=== PATIENT | female | born 1940 | race Caucasian/White ===

== ENCOUNTER → 2019-07-29 | Outpatient (CLI) | payer MEDICARE, SELFPAY ==
--- NOTE | 2019-07-29 | EMB_PTH ---
PATIENT: AXEL COELLO LOC: U#:[id number] AGE/SX: 79/F ROOM: RE07/29/[address]: Dr. Monse Greene MD : 1940 BED: DIS: 07/29/2019 SPEC #: [id number] RECD: 07/29/19 16:39 STATUS: ELYSIA REYoni #: [id number] MITZI: 07/29/19 00:[address]: Daisy Glover NP DEPT: SURGICAL PATHOLOGY RECD BY: Hanny Bobby ENTERED: 08/01/19 09:16 SP TYPE: ENDOM BX/C OTHR DR: MD Dr. Monse Betancourt MD Tissues: Endometrium, NOS Procedures: Surgery Specimen Level IV HEADER OPERATION: Endometrial biopsy PRE-OP DIAGNOSIS: Abnormal uterine bleeding TISSUE SUBMITTED: Endometrial biopsy MICROSCOPIC DIAGNOSIS Endometrium, biopsy: Endometrial carcinoma, FIGO 3, with focal papillary serous features. AM:tasha 08/02/19 COMMENT Immunohistochemistry ([id number]) supports the above diagnosis. Case has been reviewed in consultation with Dr. Fraga who concurs with the above diagnosis. IDC:CHASE MICROSCOPIC DESCRIPTION Slides are reviewed. GROSS DESCRIPTION Received is one container labeled with the patient's name and not further designated. The specimen consists of multiple irregular fragments of light ball soft tissue that in aggregate measure 1 x 0.2 x 0.1 cm. The specimen is totally submitted in one cassette. / SJ:tasha 08/01/19 TC:0 CPT: 62061 ADDENDUM ADDENDUM ADDENDUM ADDENDUM ADDENDUM ADDENDUM ADDENDUM ADDENDUM ADDENDUM ADDENDUM 03/02/2020 10:18 ADDENDUM 03/02/2020 10:18 ADDENDUM 03/02/2020 10:18 ADDENDUM 03/02/2020 10:18 ADDENDUM 03/02/2020 10:18 This addendum is added to incorporate an outside pathology consultation report. The case was examined at [facility] (#[id number]) and the following diagnosis was rendered. Endometrium, biopsy: High grade endometrial carcinoma, serous type. Please see complete above mentioned consultation report in EMR
--- NOTE | 2019-07-29 | IMM_PTH ---
PATIENT: AXEL COELLO LOC: [facility]#:[id number] AGE/SX: 79/F ROOM: RE07/29/[address]: Dr. Monse Greene MD : 1940 BED: DIS: 07/29/2019 SPEC #: [id number] RECD: 08/02/19 12:35 STATUS: ELYSIA REQ #: [id number] MITZI: 07/29/19 00:[address]: Monse Greene DEPT: IMMUNOHISTOCHEMISTRY RECD BY: Adry Wu ENTERED: 08/02/19 12:37 SP TYPE: IMMUNO OTHR DR: Dr. Tano Cornejo MD Tissues: Endometrium, NOS Procedures: MSH2 (add) MLH-1 (add) MSH6 (add) Anti-PMS2 (add) CA-125 (add) CEA (add) CK19 (add) CK20 (add) CK7 (add) CK8 (add) KI-67 (add) P53 (add) VT (add) Vimentin (add) 34BE12 (add) Pankeratin (add) CDX2 (add) ER (initial) PHYSICIAN & [place] [id number] SPECIMEN INFORMATION: Tissue Source: Endometrial biopsy Clinical Info: Abnormal uterine bleeding Specimen Number: [id number] CPT code: 45586, 94953 x17 METHODOLOGY: Deparaffinized sections of prefer/formalin-fixed tissue or PAP/DQ stained slides are incubated with monoclonal/polyclonal antibodies/oligonucleotide probes. Localization is made via biotin free immunoperoxidase method. Appropriate controls are performed and reacted as expected. Results on target cell population are indicated in the following table: RESULTS: ANTIBODY / CLONE RESULT ER (6F11) positive, occasional VT (1E2) positive AE1-3 (AE1/AE3/PCK26) positive CK7 (OV-TL12/30) positive CK8 (32spjdI57) positive CK20 (KS20.8) positive, focal 34BE12 (34BE12) positive, focal Vimentin (V9) negative CK19 (A53-B/A2.26) positive CDX2 (GIB4467F) negative Ki-67 (30-9) positive, 90% CEA (11-7/TF-3HB-1) negative P53 (DO-7) positive, 80% MLH1 (M1) positive MSH2 (25D12) positive MSH6 (44) positive PMS2 (PHJ3522) positive CA125 (OC125) positive, focal These tests were developed and their performance characteristics determined by [facility]. They may not have been cleared or approved by the U.S. Food and Drug Administration. The FDA has determined that such clearance or approval is not necessary. The above immunohistochemical/dualISH markers are ordered and reviewed by the Pathologist. INTERPRETATION: Endometrial biopsy: Consistent with endometrial carcinoma, FIGO 3 with papillary serous features. Result of Microsatellite Instability Study: Negative (no loss of mismatch protein; no microsatellite instability detected). AM:tasha 08/03/19
[2019-07-29 13:51] VITALS: BMI 35.1
--- NOTE | 2019-07-29 16:11 | US_ITS ---
STUDY: ULTRASOUND TRANSVAGINAL CLINICAL: Female, 79 years old. Postmenopausal bleeding TECHNIQUE: Transabdominal and Transvaginal COMPARISON: None. FINDINGS: Normal uterine size measuring 8.4 x 4.2 x 4.6 cm in maximal craniocaudal dimension. There are no myometrial masses. Endometrial lining is 2 cm in thickness and hyperechoic. There is fluid within the canal.. There are no endometrial masses area Normal uterine cervix. Ovaries are not visualized. There is no adnexal mass. There is no free fluid in the pelvis. US/Transvaginal Non- IMPRESSION: Nonspecific thickening of the endometrial lining measuring approximately 2 cm in thickness with fluid in the endometrial canal Electronically Signed: Chuck Talbert MD at 17:31 EDT , Service support ,
[2019-08-04 16:50] LABS: HPV APTIMA, High Risk Negative (Negative)
== END | disposition home or self-care (01) ==
PROVIDERS: Nurse Practitioner Women's Health; Family Provider Family Medicine; PCP Family Medicine; Referring Provider Obstetrics & Gynecology; Visit Provider Obstetrics & Gynecology
DX: N93.8 Other specified abnormal uterine and vaginal bleeding (principal); N89.8 Other specified noninflammatory disorders of vagina; N93.9 Abnormal uterine and vaginal bleeding, unspecified; Z12.4 Encounter for screening for malignant neoplasm of cervix
CPT/HCPCS: 76830; 87070; 87205; 87624; 88175; 88305; 88341; 88342; G0145

== ENCOUNTER → 2019-08-03 | Outpatient (CLI) | payer MEDICARE, SELFPAY ==
[2019-07-29 13:51] VITALS: BMI 35.1
--- NOTE | 2019-08-03 14:25 | CT_ITS ---
STUDY: CT ABDOMEN AND PELVIS WITH CONTRAST REASON FOR EXAM: Female, 79 years old. Abdominal pain RADIATION DOSAGE (If Supplied By Facility): CTDIvol = ( 22.93 ) mGy, DLP = ( 1867.82 ) mGycm TECHNIQUE: Transaxial images were obtained from the dome of the diaphragm to the symphysis pubis without oral contrast. IV/Oral Isovue 300 100ml was administered. Sagittal and coronal images were reconstructed. Individualized dose optimization techniques were used for this CT. COMPARISON: None. FINDINGS: The visualized lung bases are unremarkable. The visualized portions of the heart are within normal limits. The liver is normal in size. There is a tiny cyst in the right lobe. Bile ducts are not dilated.. Normal gallbladder and extrahepatic biliary system. Normal spleen. Normal pancreas. Normal bilateral adrenal glands. There is right renal pelvocaliectasis and hydroureter of indeterminate etiology which is not completely seen throughout the course. There is a simple cyst in the right renal cortex. Normal left kidney. Normal visualized stomach. Normal small intestine. There is diffuse fecal retention within the colon. There are diverticular changes in the distal descending and sigmoid colon without evidence for acute diverticulitis at this time.. No evidence for acute appendicitis. Atherosclerotic changes of the aorta without evidence for aneurysm. Normal inferior vena cava. Normal retroperitoneum. Incompletely distended thick-walled bladder likely of no significance. There is fluid within the uterine fundus as well as a soft tissue lesion possibly neoplastic. Pelvic sonogram recommended for further evaluation There is a very small fat-containing upper anterior abdominal wall hernia and smaller hernia containing transverse colon. There is also a much larger anterior pelvic wall hernia containing loops of bowel without evidence for proximal obstruction or incarceration.. Spine demonstrates degenerative changes. There are postsurgical changes status post multilevel laminectomy and posterior fusion at L4-5 CT/Abdomen/Pelvis WITH Contrast IMPRESSION: Right renal pelvocaliectasis and hydroureter which is not seen throughout its course of indeterminate etiology and clinical significance. Retrograde pyelogram may be helpful for further assessment if clinically warranted . Diverticular disease of the distal descending and sigmoid colon without evidence for acute diverticulitis Incidental finding of fluid-filled uterine fundus with association soft tissue density possibly neoplastic. Would recommend pelvic sonogram for further evaluation Other findings as above Electronically Signed: Chuck Talbert MD at 22:56 EDT , Service support ,
[2019-08-03 16:36] LABS: CREATININE FINGERSTICK 0.9 mg/dL (0.55-1.02); EGFR FINGERSTICK > 60.0000 mL/min (>60)
== END | disposition home or self-care (01) ==
LOC: CT 14:25
PROVIDERS: Family Provider Family Medicine; PCP Family Medicine; Referring Provider Nurse Practitioner Women's Health; Visit Provider Nurse Practitioner Women's Health
DX: N93.9 Abnormal uterine and vaginal bleeding, unspecified (principal)
CPT/HCPCS: 74177; Q9967

== ENCOUNTER → 2019-08-26 | Outpatient (CLI) | payer MEDICARE, SELFPAY ==
[2019-07-29 13:51] VITALS: BMI 35.1
[2019-08-18 10:02] VITALS: BMI 36.6
--- NOTE | 2019-08-26 16:54 | CT_ITS ---
STUDY: CT CHEST WITHOUT CONTRAST REASON FOR EXAM: Female, 79 years old. Endometrial cancer staging RADIATION DOSAGE (If Supplied By Facility): CTDIvol = ( 16.35 ) mGy, DLP = ( 551.62 ) mGycm TECHNIQUE: Transaxial imaging was performed without the administration of intravenous contrast material. Individualized dose optimization techniques were used for this CT. COMPARISON: None. FINDINGS: Examination is technically limited due to lack of IV contrast. Assessment of mediastinal contents and soft tissues is limited. Lung parenchyma is fully evaluable. Central airways are patent. There is mild left upper lobe/lingular atelectasis. There are no pulmonary lesions. Pleural surfaces are intact. The aorta and pulmonary artery are normal in size. There is severe coronary artery disease. There is mild cardiomegaly with enlargement of all 4 chambers. Pericardium is normal. There are mediastinal lymph nodes, normal by CT size criteria. Hilar lymph nodes cannot be assessed due to lack of IV contrast. Axillae are clear. Osseous structures are intact. Adrenal glands are normal. Limited upper abdominal images are unremarkable. There is ventral superior linea alba hernia containing omental fat. CT/Chest without Contrast IMPRESSION: 1. Unremarkable lungs. 2. Severe coronary artery disease. 3. No thoracic metastatic disease on noncontrast CT chest. Electronically Signed: Tori Johnston, at 17:51 EST Tel , Service support ,
== END | disposition home or self-care (01) ==
LOC: CT 16:47
PROVIDERS: Family Provider Family Medicine; PCP Family Medicine; Referring Provider Student in an Organized Health Care Education/Training Program; Visit Provider Student in an Organized Health Care Education/Training Program
DX: C54.1 Malignant neoplasm of endometrium (principal)
CPT/HCPCS: 71250

== ENCOUNTER → 2019-08-31 | Outpatient (CLI) | payer MEDICARE, SELFPAY ==
[2019-07-29 13:51] VITALS: BMI 35.1
[2019-08-18 10:02] VITALS: BMI 36.6
--- NOTE | 2019-08-31 09:30 | MRI_ITS ---
HISTORY: staging for endometrial adenocarcinoma, hx prior bladder ca ADDITIONAL HISTORY: None provided. COMPARISON: CT abdomen and pelvis 08/03/2019 and ultrasound pelvis 07/29/2019 TECHNIQUE: Multiplanar, multisequence MRI of the pelvis without and with 17 mL Dotarem IV contrast. T1, T1 fat sat, T2, and STIR sequences performed. Axial T1 fat suppressed images obtained postcontrast. FINDINGS: UTERUS: Endometrial cavity is distended with T2 hyperintense and mildly T2 hyperintense material measuring 5.1 cm. Within this, there is a polypoid mass of intermediate T1 and T2 signal intensity located in the central lower uterine segment/internal os region measuring approximately 5.1 x 3.3 x 2.4 cm in size on series 4 image 12 and series 9 image 16. No definite myometrial invasion is seen in the region of this mass. An eccentric mass is present in the right side of the cervix measuring 2.8 x 1.5 x 2.2 cm on series 4 image 14 and series 9 image 11. It is unclear whether the cervical mass was contiguous with the polypoid endometrial mass. Small myometrial mass in the anterior body of the uterus with decreased T2 and intermediate T1 signal intensity measuring 1.4 x 0.6 x 1.2 cm. ADNEXA: Unremarkable ovaries measuring approximately 1.7 x 1.4 cm on the right and 2.9 x 1.5 cm on the left. LYMPH NODES: Left external iliac node on series 6 image 12 measures 12 x 11 mm. Small bilateral obturator nodes and right external iliac nodes are also seen. An elongated node on the right side measures about 8 mm in greatest short axis dimension. BLADDER: Predominantly decompressed and therefore not well evaluated. No definite abnormality is seen. VISUALIZED BOWEL: Colonic diverticulosis. VASCULATURE: Unremarkable. ABDOMINAL WALL: [place] ventral hernia containing fat and small bowel without evidence of obstruction. SKELETON: No acute or suspicious lesion. Lumbar hardware partially visualized. SOFT TISSUES: Unremarkable. MRI/Pelvis W/WO Contrast IMPRESSION: 1. Polypoid mass in the endometrium and the lower uterine segment compatible with the provided history of endometrial cancer. 2. Eccentric mass in the right side of the cervix, unclear whether this is contiguous with the endometrial mass or related to a separate cervical mass. 3. Mildly enlarged left external iliac node is concerning for metastatic disease.. There is no pelvic nodes are nonspecific in appearance. at 0148 Reported and signed by: Fatoumata Owen MD Electronically Signed: Fatoumata Owen MD at 1:48 EST Tel , Service support ,
== END | disposition home or self-care (01) ==
LOC: MRI 09:23
PROVIDERS: Family Provider Family Medicine; PCP Family Medicine; Referring Provider Student in an Organized Health Care Education/Training Program; Visit Provider Student in an Organized Health Care Education/Training Program
DX: C54.1 Malignant neoplasm of endometrium (principal)
CPT/HCPCS: 72197; A9575

== ENCOUNTER → 2019-10-15 07:54 | Outpatient (CLI) | payer MEDICARE, SELFPAY ==
[2019-07-29 13:51] VITALS: BMI 35.1
[2019-08-18 10:02] VITALS: BMI 36.6
--- NOTE | 2019-10-15 08:07 | MRI_ITS ---
STUDY: MR PELVIS WITH CONTRAST REASON FOR EXAM: Female, 79 years old. f/u to treated endometrial ca, eval prior to surgery/brachy; hx adenocarcinoma of endometrium, bladder ca TECHNIQUE: Standardized fat and water weighted pulse sequences were obtained in all 3 orthogonal planes, pre-and post contrast administration. iv Dotarem 17ml was administered. COMPARISON: 08/31/2019 FINDINGS: Visualized hollow viscus structures are unremarkable. There is no pelvic fluid. Normal visualized pelvic arteries. No bone marrow edema or localized lesion. Fusion hardware in the lower lumbar spine degenerative changes noted. Normal abdominal wall. The uterus measures 3.5 x 4.8 x 6.7 cm with decreased cystic accumulation of the upper endometrial canal evident on the prior study. The polypoid structure of the endometrial canal has also decreased in size, measuring 0.6 x 1.0 cm (measured up to 5 cm on prior study). Nonenhancing dark T1 and dark T2 inguinal intensity mass of the anterior uterine fundus measuring 1.4 cm is compatible with a small fibroid. Localized signal heterogeneity of the cervix seen on the prior study is less conspicuous since the prior study with smoother cervical border when comparing sagittal image 12 of series 4 on the current study with image 12 of series 4 on the prior study. No pelvic sidewall adenopathy. Small lymph nodes of the retroperitoneum at the aortic bifurcation with short axis measuring 7 mm is stable. Small lymph nodes of the left external iliac chain adenopathy on image 24 of series 5 measures 0.6 x 0.5 cm (previously measured 1.2 x 1.1 cm). Lymph node medial to right external iliac vessel on image 16 of series 5 is also smaller, measuring 6 mm (previously measured 8 mm). MRI/Pelvis W/WO Contrast IMPRESSION: 1. Since 08/31/2019, favorable change. Decreased size of endometrial mass, as above. Nearly resolved cystic fluid within the upper endometrial canal evident on the prior study. Decrease iliac chain adenopathy. Electronically Signed: Stevan Moreno MD ([place]) at 10:12 EST , Service support ,
== END ==
PROVIDERS: Family Provider Family Medicine; PCP Family Medicine; Referring Provider Student in an Organized Health Care Education/Training Program; Visit Provider Student in an Organized Health Care Education/Training Program
DX: C54.1 Malignant neoplasm of endometrium (principal)
CPT/HCPCS: 72197; A9575

== ENCOUNTER 2019-12-02 18:15 | Emergency (ER) | payer MEDICARE, SELFPAY ==
[2019-07-29 13:51] VITALS: BMI 35.1
[2019-08-18 10:02] VITALS: BMI 36.6
[2019-12-02 18:16] VITALS: BP 139/48; PULSE 80; RESP 16; TEMP 37; O2SAT 98; BMI 36.1
--- NOTE | 2019-12-02 18:41 | ED.VIS.GEN ---
History of Present Illness Chief Complaint: Complaint Informant: Patient, Family Onset: Today Narrative: Patient is a 79-year-old female presenting after her Hidlago catheter fell out. Patient had total abdominal hysterectomy as well as removal of her ovary secondary to a uterine mass performed at [facility] on Nov [address] Iveth Hernandez. Patient was told she had a keep the Hidalgo catheter in place for 3 weeks. She has a cystogram scheduled for December 18. Has a follow-up appointment for her surgery on December 07, in 5 days. Patient states that she has had some pain in her urethra from the Hidalgo catheter since it was placed. Where she was at home her Hidalgo catheter just fell out. She has urinated since. It fell out at 430 this afternoon, about 2 hours prior to arrival. Patient tried to call the on-call line but could not get through so she came to the emergency room. She denies any other complaints at this time. Past Medical History - Allergies and Home Meds Allergies/Adverse Reactions: Allergies latex Allergy (Verified 12/02/19 18:40) Hives sulfur dioxide Allergy (Verified 12/02/19 18:40) Hives adhesive tape Adverse Reaction (Verified 12/02/19 18:40) Rash Primary Care Physician: Tano Cornejo MD [Primary Care Provider] - Past Medical History: - - History of stroke, bladder cancer, history of cervical cancer, hypertension, diabetes mellitus Surgical History: hysterectomy, - - CEA Smoking Status: Former smoker Review of Systems General: Denies: Chills, Fever, Sweats Eyes: Denies: Visual changes - bilaterally, Diplopia ENT: Denies: Rhinorrhea, Sore throat Cardiovascular: Denies: Chest pain, Palpitations Respiratory: Denies: Dyspnea, Cough, Dyspnea on exertion Gastrointestinal: Reports: Abdominal pain - Mild, postsurgical. Denies: Nausea, Vomiting, Diarrhea, Melena, Hematochezia Genitourinary: Reports: Dysuria, - - Hidalgo catheter, fell out. Denies: Hematuria, Frequency Musculoskeletal: Denies: Back pain, Extremity Pain Skin: Denies: Rash, Wounds Neurological: Denies: Headache, Weakness, Numbness Physical Exam Vital Signs/Narrative: Vital Signs Temp Pulse Resp BP Pulse Ox 12/02/19 18:16 98.6 F 80 16 139/48 H 98 Inital Vital Signs reviewed: Yes General: Well nourished, Well developed, No Acute Distress Head: Normocephalic, Atraumatic Eyes: Perrl, EOMI ENT: Moist mucous membranes, No rhinorrhea Neck: Supple, Nontender Cardiovascular: Regular rate, Regular rhythm, No murmurs Respiratory: No distress, CTA bilaterally, Chest nontender Abdomen: Soft, Nondistended, Normal bowel sounds, Tender - mild diffuse tenderness, consistent with recent hysterectomy. Negative for: Guarding, Rebound tenderness Back: Nontender, Normal Inspection Extremities: Nontender, No edema Skin: Normal color, No rash, - - Lower abdomen, midline tyrel in place, skin is slightly macerated from where the skin fold is however there is no surrounding erythema or signs of infection Neurological: Alert, Oriented x3 Psychological: Normal affect, Normal Mood Diagnostic/Tx/Re-eval - Medical Decision Making Patient is well evaluated after her postoperative Hidalgo catheter came out. I did discuss with the Consumer Affairs Manager Onc fellow, Dr. Smith, who recommend replacing the Hidalgo catheter. She also states that we did start the patient on Pyridium for discomfort. Hidalgo catheter was replaced. Patient tolerated this reasonably well. 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 Patient is counseled on signs and symptoms requiring return to the emergency room. Patient verbalizes agreement and understand this plan. Patient discharged home in stable and improved condition. ED Disposition - Plan for ED Patient: Disposition: Home or Assisted Living Diagnosis: Dislodged Hidalgo catheter Instructions: Hidalgo Catheter, Care Prescriptions: Phenazopyridine [Pyridium] 100 mg PO TID #9 tab Transmission Status: Pending to [id number]- [place], Referrals: Tano Cornejo MD [Primary Care Provider] - Additional Instructions: Your Hidalgo catheter was replaced today. You were started on a new medication to help with the discomfort associated with the catheter. It might cause orange discoloration of your urine. This is normal. Keep your follow-up appointment with your steam plant control room operator. Return the emergency room with any worsening or new symptoms.
[2019-12-02] MEDS: Phenazopyridine 95 MG Tablet 190 MG PO (19:55)
[2019-12-02 19:56] VITALS: BP 122/51; PULSE 71; RESP 16; O2SAT 98
== END 2019-12-02 20:05 | disposition home or self-care (01) ==
PROVIDERS: Emergency Provider Emergency Medicine; PCP Family Medicine
DX: T83.028A Displacement of other urinary catheter, initial encounter (principal); E11.9 Type 2 diabetes mellitus without complications; I10 Essential (primary) hypertension; Z90.710 Acquired absence of both cervix and uterus; Z85.41 Personal history of malignant neoplasm of cervix uteri; Z86.73 Personal history of transient ischemic attack (TIA), and cerebral infarction without residual deficits; Z85.51 Personal history of malignant neoplasm of bladder; Z79.84 Long term (current) use of oral hypoglycemic drugs; Z79.899 Other long term (current) drug therapy
CPT/HCPCS: 51702; 99284

== ENCOUNTER 2019-12-14 01:45 | Emergency (ER) | payer MEDICARE, SELFPAY ==
[2019-08-18 10:02] VITALS: BMI 36.6
[2019-12-14 01:47] VITALS: BP 160/46; PULSE 78; RESP 18; TEMP 37; O2SAT 94; BMI 35.3
--- NOTE | 2019-12-14 01:53 | ED.DCSUM_ITS ---
History of Present Illness Chief Complaint: Hidalgo C/O Narrative: Patient presenting for evaluation due to malfunction of a Hidalgo catheter. Patient does have a Hidalgo catheter in place for couple weeks now after a pelvic procedure. Patient states that tonight she was having issues where the catheter was leaking. She reports that this happened multiple times, but seem to feel that the catheter was still adequately draining. She denies any pain associated with this. She denies any fevers associated with this. Review of systems otherwise negative. Past Medical History - Allergies and Home Meds Allergies/Adverse Reactions: Allergies latex Allergy (Verified 12/14/19 01:45) Hives sulfur dioxide Allergy (Verified 12/14/19 01:45) Hives adhesive tape Adverse Reaction (Verified 12/14/19 01:45) Rash Primary Care Physician: Tano Cornejo MD [Primary Care Provider] - As Needed Past Medical History: - - Stroke, hypertension, hyperlipidemia, bladder cancer Surgical History: hysterectomy, - - CEA Smoking Status: Former smoker Review of Systems General: Denies: Chills, Fever, Malaise Cardiovascular: Denies: Chest pain Respiratory: Denies: Cough Gastrointestinal: Denies: Nausea, Vomiting Genitourinary: Reports: - - Hidalgo catheter leakage Skin: Denies: Rash Allergy: Denies: Uticaria Physical Exam Vital Signs/Narrative: Vital Signs Temp Pulse Resp BP Pulse Ox 12/14/19 01:47 98.6 F 78 18 160/46 H 94 Inital Vital Signs reviewed: Yes General: Well nourished, Well developed, Obese Head: Normocephalic, Atraumatic ENT: Moist mucous membranes Neck: Supple Cardiovascular: Regular rate, Regular rhythm Respiratory: No distress Abdomen: Soft, Nontender, Nondistended, Normal bowel sounds : - - Hidalgo catheter in place and actively draining Extremities: Nontender Skin: Normal color, No rash Neurological: Alert, Oriented x3, Cranial nerves II-XII grossly intact, Normal Strength, Normal Sensation Psychological: Normal affect Diagnostic/Tx/Re-eval - Medical Decision Making Patient presented secondary to a Hidalgo catheter malfunction. It appears as if it is actively draining, but potentially there is may be damage to the Hidalgo catheter or leakage around the catheter itself. Patient had a catheter was placed by nursing with a catheter that was one size larger than the one that was previously placed. This was done with the assistance of [employer]. Patient tolerated this well she will follow-up as previously scheduled ED Disposition - Plan for ED Patient: Disposition: Home or Assisted Living Diagnosis: Malfunction of Hidalgo catheter Instructions: Hidalgo Catheter, Care Referrals: Tano Cornejo MD [Primary Care Provider] - As Needed
[2019-12-14] MEDS: Lidocaine Jelly 2% 20 ML Syringe (URO-JET) 20 APPLIC TOPICAL (02:00)
--- NOTE | 2019-12-14 02:11 | ED.RN ---
pt arrives to ed with 16 bulgarian indwelling wells catheter. catheter balloon drained of 10 ml sterile water, and removed. new 18fr wells catheter inserted by this rn.
== END 2019-12-14 02:15 | disposition home or self-care (01) ==
PROVIDERS: Emergency Provider Emergency Medicine; PCP Family Medicine
DX: T83.031A Leakage of indwelling urethral catheter, initial encounter (principal); E78.5 Hyperlipidemia, unspecified; I10 Essential (primary) hypertension; E66.9 Obesity, unspecified; Z85.51 Personal history of malignant neoplasm of bladder; Z87.891 Personal history of nicotine dependence; Z86.73 Personal history of transient ischemic attack (TIA), and cerebral infarction without residual deficits; Z79.82 Long term (current) use of aspirin; Z79.899 Other long term (current) drug therapy
CPT/HCPCS: 51702; 99283

== ENCOUNTER → 2020-01-05 | Outpatient (CLI) | payer MEDICARE, SELFPAY ==
[2019-08-18 10:02] VITALS: BMI 36.6
[2019-12-14 01:47] VITALS: BMI 35.3
[2020-01-05 09:06] VITALS: BMI 33.2
--- NOTE | 2020-01-05 12:07 | CT_ITS ---
STUDY: CT ABDOMEN AND PELVIS WITH CONTRAST REASON FOR EXAM: Female, 79 years old. ENDOMETRIAL CA, ARNULFO/BSO 4 WKS AGO, HX BLADDER CANCER RADIATION DOSAGE (If Supplied By Facility): CTDIvol = ( 18.05 ) mGy, DLP = ( 1147.78 ) mGycm TECHNIQUE: Transaxial images were obtained from the dome of the diaphragm to the symphysis pubis without oral contrast. IV was administered. Sagittal and coronal images were reconstructed. Individualized dose optimization techniques were used for this CT. COMPARISON: Comparison is made with prior examination August 03, 2019. FINDINGS: The visualized lung bases are unremarkable. Coronary artery calcification. Stable 1 cm cyst in the lateral aspect of the right lobe of the liver. Normal gallbladder and extrahepatic biliary system. Normal spleen. Normal pancreas. Normal bilateral adrenal glands. There is a 3.9 cm x 3.6 cm cyst in the lateral aspect of the right kidney. Nonobstructive right intrarenal calculi. The largest measures 3 mm in the mid anterior pole. There is evidence of a right-sided hydronephrosis and proximal right hydroureter. No obstructive uropathy is seen. Normal left kidney. Normal visualized stomach. Normal small intestine. There are multiple colonic diverticula consistent with diverticulosis. The appendix is visualized and appears normal. There is diffuse atherosclerotic calcification of the abdominal aorta and its major visceral branches, without a demonstrated aneurysm. Normal inferior vena cava. There is borderline retroperitoneal lymphadenopathy with enlarged nodes no greater than 10mm in the short axis diameter. Mild thickening along the left bladder wall. There is absence of the uterus consistent with a prior hysterectomy. Mesh is seen along the anterior abdominal wall for repair of a ventral hernia. Persistent defect in the left side of the umbilicus with fat herniation. The neck of the hernia measures 2.7 cm. Status post laminectomy and fusion at the L4-L5 level. CT/Abdomen/Pelvis W IV Cont ONLY IMPRESSION: Essentially stable examination with evidence of prior hysterectomy. Electronically Signed: Phoenix Griffin, at 13:50 EDT , Service support ,
[2020-01-05 12:36] LABS: CREATININE FINGERSTICK 0.9 mg/dL (0.55-1.02)
== END | disposition home or self-care (01) ==
LOC: CT 12:05
PROVIDERS: PCP Family Medicine; Referring Provider Student in an Organized Health Care Education/Training Program; Visit Provider Student in an Organized Health Care Education/Training Program
DX: C54.1 Malignant neoplasm of endometrium (principal)
CPT/HCPCS: 74177; Q9967

== ENCOUNTER 2020-12-02 11:45 | Emergency (ER) | payer MEDICARE, SELFPAY ==
[2019-08-18 10:02] VITALS: BMI 36.6
[2020-01-16 08:50] VITALS: BMI 33.2
[2020-12-02 11:46] VITALS: BP 121/84; PULSE 82; RESP 18; TEMP 35.6; O2SAT 93; BMI 34.3
--- NOTE | 2020-12-02 12:21 | RAD_ITS ---
STUDY: X-RAY - LUMBAR SPINE REASON FOR EXAM: Female, 80 years old. Increasing back pain, NKI -- unable to walk TECHNIQUE: 3 view(s) of the lumbar spine were obtained. COMPARISON: None FINDINGS: Normal lumbar lordosis. There is no substantial scoliosis. Mild degenerative anterolisthesis of L4 on L5 but there are pedicular screws and rods the use posterior decompression and fusion at L4-L5 disc level. Pronounced L2-L3 disc space height narrowing with endplate sclerosis and degenerative vacuum phenomenon. Postsurgical absence of the spinous processes and posterior elements at L1 down to L5. Normal remaining lumbar disc space heights. Dense vascular calcifications along the abdominal aorta and iliac arteries. RAD/Lumbar Spine 2 or 3 Views IMPRESSION: 1. No acute fracture or acute osseous abnormality of the lumbar spine. 2. Pronounced at L2-L3 disc space height narrowing with endplate sclerosis and degenerative vacuum phenomenon. 3. Mild degenerative anterolisthesis of L4 on L5 but there are pedicular screws and rods from previous posterior decompression fusion at this level. Electronically Signed: Kvng Yanez MD at 14:15 EST , Service support ,
--- NOTE | 2020-12-02 12:29 | ED.VIS.GEN ---
History of Present Illness Chief Complaint: Back Informant: Patient, Family Onset: Weeks - Approximately 3 weeks ago Context: Sudden Onset Timing: Continuous Quality: Pain Location: For low back that now causes discomfort in her rectal area Current Severity: Mild Maximum Severity: Severe Worsened by: Mid and upright position Relieved by: Remaining still in supine position Associated Symptoms: No constitutional symptoms, no bowel bladder dysfunction no radicular pain Narrative: Patient is an 80-year-old woman who had back surgery in 2016. Son states she had rods. She had surgery 1 to 2 years ago for endometrial cancer. She was not a candidate for chemotherapy. She did receive radiation therapy. Surgery was performed at [facility]. Patient is not a good informant. She is slightly confused. Son states this is normal. Of note, she is on generic Flexeril which is associated with change in mental status. Patient denies incontinence of stool. She denies inability urinate. She denies saddle paresthesia or anesthesia. She denies radicular pain. She denies foot drop. She denies buckling of her knees going up or down steps. She has not complained of dysuria, frequency, urgency or hematuria. She denies fever or chills. There is no history of trauma. She was scheduled for outpatient x-ray on December 03Thursday. She has not noted any new rashes. She denies itching. She denies weight loss or weight gain. She denies night sweats. She is not on immunosuppressive meds. Prior similar symptoms: Yes - Started 3 weeks ago Recent Illness/Hospitalization: Yes - Seen by PCP and started on medication - Past Medical History (1) History of hypertension Status: Acute (2) Endometrial cancer, FIGO stage IIIA Status: Chronic Past Medical History - Allergies and Home Meds Allergies/Adverse Reactions: Allergies latex Allergy (Verified 12/02/20 11:46) Hives sulfur dioxide Allergy (Verified 12/02/20 11:46) Hives adhesive tape Adverse Reaction (Verified 12/02/20 11:46) Rash Primary Care Physician: Tano Cornejo MD [Primary Care Provider] - Prior records reviewed: Yes Surgical History: hysterectomy, - - CEA Lives: With Family Smoking Status: Former smoker Alcohol: None Drugs: None Review of Systems General: Denies: Chills, Fever, Malaise, Subjective, Weight loss Eyes: Denies: Visual changes - bilaterally, Blurred Vision - bilaterally ENT: Denies: Rhinorrhea, Sore throat Cardiovascular: Denies: Chest pain Respiratory: Denies: Dyspnea, Cough, Dyspnea on exertion Gastrointestinal: Denies: Abdominal pain, Nausea, Vomiting, Diarrhea, Constipation, Melena, Hematochezia Genitourinary: Denies: Dysuria, Hematuria, Frequency Musculoskeletal: Reports: Back pain. Denies: Myalgias, Arthralgias, Neck pain, Extremity Pain Skin: Denies: Rash, Wounds Neurological: Denies: Headache, Weakness, Parasthesia Psych: Denies: Depression, Anxiety Hematologic: Denies: Easy bruising, Easy bleeding Physical Exam Vital Signs/Narrative: Vital Signs Temp Pulse Resp BP Pulse Ox 12/02/20 11:46 96.1 F L 82 18 121/84 H 93 Inital Vital Signs reviewed: Yes General: Well nourished, Well developed, Obese Head: Normocephalic, Atraumatic Eyes: Perrl, EOMI. Negative for: Pale conjunctiva ENT: Moist mucous membranes, No rhinorrhea Neck: Supple, Nontender, No lymphadenopathy, No JVD Cardiovascular: Regular rate, Regular rhythm, No murmurs, Normal S1, Normal S2 Respiratory: No distress, CTA bilaterally, Chest nontender Abdomen: Soft, Nontender, Nondistended, Normal bowel sounds Rectal: - - Normal perianal sensation. Back: Nontender, Normal Inspection, - - No percussion tenderness noted midline. There is a well-healed scar noted over the lumbar region.. Negative for: Spinal tenderness Extremities: Nontender, No edema, - - There is no asymmetry, swelling, discoloration, leg vein distention, palpable cords or tenderness along the distribution of the deep venous system. Skin: Normal color, No Trauma, Rash - ?Involving her feet, which is chronic. DP and PT pulse are palpable. Scars noted from prior surgery.. Negative for: No rash, Cyanosis, Diaphoresis, Jaundice Neurological: Alert, Cranial nerves II-XII grossly intact, Normal Strength, Normal Sensation, Normal DTR - There is no clonus or Babinski sign. EHLs intact. 5/5 strength with plantar and dorsiflexion of the foot. Patella and ankle reflexes are 1+. Straight leg test and crossover tests are negative.. Negative for: Oriented x3 Psychological: Normal affect Diagnostic/Tx/Re-eval Three-view x-ray of the LS-spine was obtained. There is degenerative changes L2-L3. There is disc space narrowing L4-L5. There is no dilatation of the aorta. There is mild calcification. There is no evidence of discitis or osteomyelitis. There is no spondylolisthesis or spinal orthosis. Impressions Lumbar Spine X-Ray 12/02/20 12:21 IMPRESSION: 1. No acute fracture or acute osseous abnormality of the lumbar spine. 2. Pronounced at L2-L3 disc space height narrowing with endplate sclerosis and degenerative vacuum phenomenon. 3. Mild degenerative anterolisthesis of L4 on L5 but there are pedicular screws and rods from previous posterior decompression fusion at this level. Electronically Signed: Kvng Yanez MD at 14:15 EST , Service support , 12/02/20 12:21 Lumbar Spine 2 or 3 Views [RAD] Stat Laboratory Results 12/02/20 12/02/20 12:36 12:36 WBC 9.4 RBC 3.96 L Hgb 11.5 L Hct 36.2 L MCV 91.4 MCH 29.0 MCHC 31.8 L RDW Std Deviation 47.8 H RDW Coeff of Deborah 14.2 Plt Count 275 MPV 9.4 Immature Gran % (Auto) 0.900 Neut % (Auto) 92.0 H Lymph % (Auto) 2.8 L [place] % (Auto) 3.9 Eos % (Auto) 0.2 Baso % (Auto) 0.2 Absolute Neuts (auto) 8.7 H Absolute Lymphs (auto) 0.26 L Nucleated RBC % 0 Differential Comment SCANNED ESR 45 H Sodium 135 L Potassium 4.5 Chloride 102 Carbon Dioxide 25.0 Anion Gap 8 BUN 29 H Creatinine 0.95 Estim Creat Clear Calc 57.50 Est GFR (MDRD) Af Amer 73 Est GFR (MDRD) Non-Af 60 BUN/Creatinine Ratio 30.7 H Glucose 220 H Calcium 9.2 Total Bilirubin 0.80 AST 31 ALT 33 Alkaline Phosphatase 90 Total Protein 7.4 Albumin 3.4 Globulin 4.0 Albumin/Globulin Ratio 0.8 L White count is normal. Sed rate is normal when corrected for age. Calcium is normal as well as alkaline phosphatase. 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 Patient was reassessed at 1430. She states she has no pain presently. Will discharge with opiate analgesics. She was instructed to discontinue the prednisone, NSAID and muscle relaxant . - Medical Decision Making History of endometrial cancer and low back pain and now pelvic pain will obtain x-rays and appropriate blood work to work-up her complaint. She was medicated with IV morphine. ED Disposition - Plan for ED Patient: Disposition: Home or Assisted Living Diagnosis: Low back pain Instructions: ED Back Pain (Acute or Chronic) Prescriptions: Hydrocodone Bitart/Apap 5-325 [[place] 5MG-325MG] 1 tablet PO Q6H PRN PRN 3 Days #10 tablet PRN Reason: Pain Transmission Status: Sent to [id number] Referrals: Tano Cornejo MD [Primary Care Provider] - 5-7 Days
[2020-12-02] MEDS: Ondansetron 4 MG/2 ML Vial IV (12:40)
[2020-12-02] MEDS: Morphine 4 MG/ML Syringe IV (12:40)
[2020-12-02 12:51] VITALS: BP 121/53; PULSE 70; RESP 16; O2SAT 89
[2020-12-02 13:00] LABS: Absolute Lymphocyte Count 0.26 X10^3/uL (0.83-4.51); Absolute Neutrophil Count 8.7 X10^3/uL (2.0-7.7); Basophil# 0.02 X10^3/uL; Basophil% 0.2 % (0-1); Eosinophil# 0.02 X10^3/uL; Eosinophils% 0.2 % (0-5); Hematocrit 36.2 % (37-47); Hemoglobin 11.5 g/dL (12.0-15.0); Lymphocyte # 0.26 X10^3/ul (4.0); Lymphocyte % 2.8 % (19-41); Mean Corp Hgb Conc 31.8 g/dL (32-36); Mean Corpuscular Volume 91.4 fL (81-99); Mean Platelet Vol. 9.4 fl (6.2-12.0); Monocyte# 0.37 X10^3/uL; Monocyte% 3.9 % (0-10); NRBC Flagged by Analyzer 0 % (0-5); Neutrophil # 8.66 X10^3/uL (2.7-7.7); POSITIVE DIFFERENTIAL YES; Platelet Count 275 K/mm3 (150-450); RBC Distribution Width CV 14.2 % (11.6-14.6); RBC Distribution Width SD 47.8 fl (35.1-43.9); Red Blood Count 3.96 M/mm3 (4.2-5.4); White Blood Count 9.4 K/mm3 (4.4-11.0)
[2020-12-02 13:02] LABS: Differential Indicated SCAN CRITERIA MET
[2020-12-02 13:13] LABS: ALB/GLOB Ratio 0.8 RATIO (0.9-2.4); AST(SGOT) 31 U/L (15-37); Alanine Aminotransfer ALT/SGPT 33 U/L (13-56); Albumin, Serum 3.4 g/dL (3.2-5.0); Alkaline Phosphatase 90 U/L (45-117); Anion Gap 8 (5-15); BUN 29 mg/dL (7-18); BUN/Creat Ratio 30.7 RATIO (10-20); Calcium,Total 9.2 mg/dL (8.5-10.1); Chloride 102 mmol/L (98-107); Creatinine, Serum 0.95 mg/dL (0.55-1.02); EST Glomerular Filtration Rate 60 mL/min (>60); Est Glom Filt Rate - Afr Amer 73 mL/min (>60); Glucose 220 mg/dL (74-106); Potassium 4.5 mmol/L (3.5-5.1); Protein, Total 7.4 g/dL (6.4-8.2); Sodium Level 135 mmol/L (136-145)
[2020-12-02 13:46] LABS: Differential Comment SCANNED; Erythrocyte Sedimentation Rate 45 mm/hr (0-30)
--- NOTE | 2020-12-02 15:07 | ED.VISSUMM ---
- ER Visit Summary Date of Service: 12/02/20 Chief Complaint: [] History of Present Illness: The patient is a 80 F [] Physical Examination: [] Test Results: [] Emergency Department Course and Treatment: [] Treatment Plan: [] Disposition: [] Impression: [] This note was generated with [employer] dictation software. It may contain incorrect words, spelling, and punctuation that were not noted in review of the chart prior to signing ED Disposition - Plan for ED Patient: Disposition: Home or Assisted Living Diagnosis: Low back pain Instructions: ED Back Pain (Acute or Chronic) Prescriptions: Hydrocodone Bitart/Apap 5-325 [[place] 5MG-325MG] 1 tab PO Q6H PRN PRN 3 Days #10 tab PRN Reason: Pain Transmission Status: Received by [id number] Oxycodone HCl/Acetaminophen [Percocet 5/325] 1 tablet PO Q6H PRN PRN 5 Days #20 tablet PRN Reason: Back pain Transmission Status: Received by [id number] Referrals: Tano Cornejo MD [Primary Care Provider] - 5-7 Days
[2020-12-02 15:15] VITALS: PULSE 74; RESP 16; O2SAT 93
== END 2020-12-02 15:18 | disposition home or self-care (01) ==
PROVIDERS: Emergency Provider Emergency Medicine; PCP Family Medicine
DX: M54.5 Low back pain (principal); I10 Essential (primary) hypertension; E66.9 Obesity, unspecified; Z87.891 Personal history of nicotine dependence; Z79.899 Other long term (current) drug therapy
CPT/HCPCS: 72100; 80053; 85025; 85652; 96374; 96375; 99283; A4216; J2405

== ENCOUNTER 2020-12-05 11:20 | Inpatient (IN) | payer MEDICARE, SELFPAY ==
[2019-08-18 10:02] VITALS: BMI 36.6
[2020-12-05] VITALS (28 sets, daily range): BP systolic 78–126; BP diastolic 42–84; PULSE 74–153; RESP 16–27; TEMP 36.4–37.7; O2SAT 88–99; BMI 35.2; BMI 28.3
--- NOTE | 2020-12-05 11:40 | EKG12_ITS ---
Test Reason : TACHY Blood Pressure : / mmHG Vent. Rate : 153 BPM Atrial Rate : 113 BPM P-R Int : 000 ms QRS Dur : 082 ms QT Int : 278 ms P-R-T Axes : 000 068 198 degrees QTc Int : 443 ms Atrial fibrillation with rapid ventricular response with premature ventricular or aberrantly conducte d complexes ST & T wave abnormality, consider lateral ischemia Abnormal ECG Confirmed by SHANDA SEWELL, ROMEL ([id number]), online editor DANA GAMA ([id number]) on 12/10/2020 10:41:56 AM Referred By: TIGRE Confirmed By:ROMEL LAND MD
--- NOTE | 2020-12-05 11:41 | ED.VIS.GEN ---
History of Present Illness Chief Complaint: Weakness Detail of Chief Complaint: This, rectal pain, fever Informant: Patient Onset: - - Uncertain Context: - - Does not feel well Timing: Continuous, - Quality: Patient presents because she does not feel well with subjective fever Location: Generalized and rectum Current Severity: - - Not able to quantitate Maximum Severity: - - Not able to quantitate Worsened by: Nothing Relieved by: Nothing Associated Symptoms: Decreased appetite and not feeling well Narrative: Patient is an 80-year-old woman with history of stage IIIa material cancer, bladder cancer who presents with fever, rectal pain, not feeling well with decreased appetite and urine output. Patient denies headache. She denies visual, ocular auditory symptoms. She denies rhinorrhea, congestion postnasal drainage or sore throat. She denies change in taste or smell. She does report shortness of breath. She denies cough. She denies nausea, vomiting or diarrhea. She does report vague abdominal discomfort. She also reports rectal pain. She denies black or maroon-colored stool. She reports decreased urine output. She denies headache, paresthesia, anesthesia or motor weakness. She denies problems with balance. She denies problems with speech or swallowing. Prior similar symptoms: No Recent Illness/Hospitalization: No - Past Medical History (1) History of bladder cancer Status: Acute (2) Endometrial cancer, FIGO stage IIIA Status: Chronic (3) History of hypertension Status: Acute (4) History of type 2 diabetes mellitus Status: Acute (5) History of hypercholesterolemia Status: Acute Past Medical History - Allergies and Home Meds Allergies/Adverse Reactions: Allergies latex Allergy (Verified 12/02/20 11:46) Hives sulfur dioxide Allergy (Verified 12/02/20 11:46) Hives adhesive tape Adverse Reaction (Verified 12/02/20 11:46) Rash Primary Care Physician: Tano Cornejo MD [Primary Care Provider] - Prior records reviewed: Yes Surgical History: hysterectomy, - - CEA Lives: Alone Smoking Status: Former smoker Alcohol: None Drugs: None Review of Systems General: Reports: Fever, Malaise. Denies: Chills, Sweats Eyes: Denies: Visual changes - bilaterally, Blurred Vision - bilaterally ENT: Denies: Bilateral ear pain, Rhinorrhea, Sore throat Cardiovascular: Denies: Chest pain, Palpitations Respiratory: Reports: Dyspnea. Denies: Cough, Sputum, Dyspnea on exertion Gastrointestinal: Reports: Abdominal pain, - - Rectal pain. Denies: Nausea, Vomiting, Diarrhea, Melena, Hematochezia Genitourinary: Reports: - - Decreased urine output. Denies: Dysuria, Hematuria, Frequency Musculoskeletal: Reports: Back pain - Chronic. Denies: Myalgias, Arthralgias, Neck pain, Swelling, Extremity Pain Skin: Denies: Rash, Wounds Neurological: Reports: Weakness. Denies: Headache, Parasthesia Endocrine: Denies: Polyuria, Polydipsia Hematologic: Denies: Easy bruising Physical Exam Vital Signs/Narrative: Vital Signs Temp Pulse Resp BP Pulse Ox 12/05/20 11:25 149 H 19 H 95 12/05/20 11:24 98.9 F 143 H 22 H 123/83 H 95 12/05/20 11:20 98.9 F 152 H 20 H 123/83 H 95 Inital Vital Signs reviewed: Yes General: Well nourished, Well developed, Obese, No Acute Distress Head: Normocephalic, Atraumatic Eyes: Perrl, EOMI. Negative for: Pale conjunctiva, Scleral icterus ENT: No rhinorrhea, TM's clear, Dry mucous membranes Neck: Supple, Nontender, No lymphadenopathy, No JVD Cardiovascular: No murmurs, Irregular, Tachycardia Respiratory: CTA bilaterally - Bibasilar rales, Rales, Diminished. Negative for: No distress, Chest nontender, Wheezing Abdomen: Soft, Nontender, Nondistended, Normal bowel sounds, No masses Rectal: - - Remanence of prior external hemorrhoids. No fissures or fistulas noted. No palpable mass. Stool was brown. : - - External genitalia normal Back: Nontender, Normal Inspection, - - Well-healed scar over the lumbar region. Negative for: CVA tenderness Extremities: Nontender Skin: Normal color, No rash. Negative for: Cyanosis, Diaphoresis, Jaundice Neurological: Cranial nerves II-XII grossly intact, Normal Strength, Normal Sensation. Negative for: Oriented x3 Psychological: Normal affect Diagnostic/Tx/Re-eval Chest X-Ray - ED: 1 View, Read by ED Physician, Heart, Mediastinum, Bony Structures, No Acute Disease, - - X-ray was read by me at 1244. This is a single portable view. 12/05/20 12:20 Chest 1 View (Portable) [RAD] Stat 12/05/20 12:00 Mucosa - Nose SARS-CoV-2 Antigen (Rapid) - Final Laboratory Results 12/05/20 12/05/20 12/05/20 11:25 11:25 11:25 WBC 9.0 RBC 3.82 L Hgb 10.9 L Hct 35.0 L MCV 91.6 MCH 28.5 MCHC 31.1 L RDW Std Deviation 49.1 H RDW Coeff of Deborah 14.9 H Plt Count 298 MPV 9.0 Immature Gran % (Auto) 0.700 Neut % (Auto) 85.1 H Lymph % (Auto) 5.2 L [place] % (Auto) 8.7 Eos % (Auto) 0.2 Baso % (Auto) 0.1 Absolute Neuts (auto) 7.7 Absolute Lymphs (auto) 0.47 L Nucleated RBC % 0.2 PT 14.5 INR 1.2 APTT 22.5 L Sodium 139 Potassium 3.7 Chloride 106 Carbon Dioxide 28.0 Anion Gap 5 BUN 34 H Creatinine 0.92 Estim Creat Clear Calc 60.80 Est GFR (MDRD) Af Amer 75 Est GFR (MDRD) Non-Af 62 BUN/Creatinine Ratio 37.0 H Glucose 196 H Lactic Acid Calcium 8.8 Total Bilirubin 0.60 AST 42 H ALT 36 Alkaline Phosphatase 81 Total Protein 6.6 Albumin 3.1 L Globulin 3.5 Albumin/Globulin Ratio 0.9 Urine Color Urine Clarity Urine pH Ur Specific Zenia Urine Protein Urine Glucose (UA) Urine Ketones Urine Occult Blood Urine Nitrite Urine Bilirubin Urine Urobilinogen Ur Leukocyte Esterase Urine RBC Urine WBC Ur Squamous Epith Cells Urine Bacteria Urine Mucus 12/05/20 12/05/20 11:25 12:05 WBC RBC Hgb Hct MCV MCH MCHC RDW Std Deviation RDW Coeff of Deborah Plt Count MPV Immature Gran % (Auto) Neut % (Auto) Lymph % (Auto) [place] % (Auto) Eos % (Auto) Baso % (Auto) Absolute Neuts (auto) Absolute Lymphs (auto) Nucleated RBC % PT INR APTT Sodium Potassium Chloride Carbon Dioxide Anion Gap BUN Creatinine Estim Creat Clear Calc Est GFR (MDRD) Af Amer Est GFR (MDRD) Non-Af BUN/Creatinine Ratio Glucose Lactic Acid 1.2 Calcium Total Bilirubin AST ALT Alkaline Phosphatase Total Protein Albumin Globulin Albumin/Globulin Ratio Urine Color Yellow Urine Clarity Clear Urine pH 6.0 Ur Specific Zenia 1.025 Urine Protein 30 H Urine Glucose (UA) Normal Urine Ketones 50 H Urine Occult Blood 25 H Urine Nitrite Negative Urine Bilirubin 1 H Urine Urobilinogen 1 H Ur Leukocyte Esterase Negative Urine RBC 0 SEEN Urine WBC 0-5 SEEN Ur Squamous Epith Cells 0-5 SEEN Urine Bacteria 1+ Urine Mucus 0 SEEN - EKG Initial EKG Interpretation: Atrial Fibrillation - Atrial fibrillation with a ventricular rate of 153. There is premature wide-complex may represent a variant beat versus ventricular premature beat. Cures duration 82 ms. QT duration 278 ms. [place] is normal. There is nonspecific changes noted which may be rate dependent. - Medical Decision Making Plane of fever tachycardia tachypnea and history of cancer need to rule out infectious etiology versus other causes. Appropriate blood work was ordered. Suspect infectious. Since patient does have a fever is tachypneic will obtain Covid test even though she does not have symptoms that are consistent with Covid per the CDC recommendation. Graph there is no history of atrial fibrillation. This may be a response to sepsis. Therefore will not treat rate at this time. Patient's heart rate did not decrease with bolus. Second bolus was ordered and IV infusion of Cardizem. Will have hospitalist paged for admission with consultation to cardiology. - Critical Care Time Critical care time (excluding procedures): 30-74 minutes - Critical care time 34 minutes which includes obtaining history, physical exam, review of prior records, documentation, interpretation of laboratory results, initiation of treatment, Discussing w/Patient &/or Family/Continuous Pillowcase Cutter, Discussing w/Consultants, Arranging Admission or Transfer ED Disposition - Plan for ED Patient: Disposition: Acute Care Hospital [facility] Diagnosis: New onset atrial fibrillation, Urinary tract infection, History of hypertension, History of hypercholesterolemia, History of type 2 diabetes mellitus, Prerenal azotemia, Hyperglycemia due to type 2 diabetes mellitus Referrals: Tano Cornejo MD [Primary Care Provider] -
[2020-12-05 11:58] LABS: Absolute Lymphocyte Count 0.47 X10^3/uL (0.83-4.51); Absolute Neutrophil Count 7.7 X10^3/uL (2.0-7.7); Basophil# 0.01 X10^3/uL; Basophil% 0.1 % (0-1); Eosinophil# 0.02 X10^3/uL; Eosinophils% 0.2 % (0-5); Hemoglobin 10.9 g/dL (12.0-15.0); Lymphocyte # 0.47 X10^3/ul (4.0); Lymphocyte % 5.2 % (19-41); Mean Corp Hgb Conc 31.1 g/dL (32-36); Mean Corpuscular Hgb 28.5 pg (27.0-32.0); Mean Corpuscular Volume 91.6 fL (81-99); Monocyte# 0.79 X10^3/uL; Monocyte% 8.7 % (0-10); NRBC Flagged by Analyzer 0.2 % (0-5); Neutrophil # 7.68 X10^3/uL (2.7-7.7); Neutrophil % 85.1 % (47-70); POSITIVE DIFFERENTIAL YES; Platelet Count 298 K/mm3 (150-450); RBC Distribution Width CV 14.9 % (11.6-14.6); RBC Distribution Width SD 49.1 fl (35.1-43.9); Red Blood Count 3.82 M/mm3 (4.2-5.4)
[2020-12-05 12:00] LABS: Differential Indicated SCAN CRITERIA MET
[2020-12-05 12:14] LABS: Mucous, Urine 0 SEEN /hpf (<or=2+); Red Blood Cells-Urine 0 SEEN /hpf (0-5)
--- NOTE | 2020-12-05 12:20 | RAD_ITS ---
STUDY: X-RAY CHEST REASON FOR EXAM: Female, 80 years old. RECENTLY DIAGNOSED WITH CANCER. HAVING RAPID DECLINE. STARTED HAVING RECTAL PAIN. TECHNIQUE: Single AP portable view of the chest. COMPARISON: None. FINDINGS: EKG electrodes are seen. The lungs are clear and expanded. There is no demonstrated pleural abnormality. There is moderate cardiac enlargement. Normal mediastinum and radha. Normal visualized pulmonary arteries. There is atherosclerotic calcification of the aortic arch with tortuosity. There are diffuse degenerative changes of the visualized thoracic spine. Normal visualized ribs, clavicles, and shoulders. There is no demonstrated abnormality of the visualized soft tissue structures of the upper abdomen. RAD/Chest 1 View (Portable) IMPRESSION: Cardiomegaly. Electronically Signed: Phoenix Griffin MD at 12:49 EST , Service support ,
[2020-12-05 12:21] LABS: Color, Urine Yellow (Yellow); Glucose, Dipstick Normal (Normal); Ketone-Dipstick 50 mg/dl (Negative); Leukocyte Esterase-Dipstick Negative /ul (Negative); Nitrite-Dipstick Negative (Negative); Occult Blood-Urine 25 /ul (Negative); Protein-Dipstick 30 mg/dl (Negative); Specific Gravity, Urine 1.025 (1.002-1.030); Urine Clarity Clear (Clear); Urine Urobilinogen 1 mg/dl (Normal)
[2020-12-05 12:21] LABS: Lactic Acid 1.2 mmol/L (0.4-1.9)
[2020-12-05 12:22] LABS: ALB/GLOB Ratio 0.9 RATIO (0.9-2.4); AST(SGOT) 42 U/L (15-37); Alanine Aminotransfer ALT/SGPT 36 U/L (13-56); Albumin, Serum 3.1 g/dL (3.2-5.0); Alkaline Phosphatase 81 U/L (45-117); Anion Gap 5 (5-15); BUN 34 mg/dL (7-18); Calcium,Total 8.8 mg/dL (8.5-10.1); Chloride 106 mmol/L (98-107); Creatinine, Serum 0.92 mg/dL (0.55-1.02); EST Glomerular Filtration Rate 62 mL/min (>60); Est Glom Filt Rate - Afr Amer 75 mL/min (>60); Globulin 3.5 g/dL (2.2-4.2); Glucose 196 mg/dL (74-106); Potassium 3.7 mmol/L (3.5-5.1); Protein, Total 6.6 g/dL (6.4-8.2); Sodium Level 139 mmol/L (136-145)
[2020-12-05 12:25] LABS: International Normalized Ratio 1.2; Partial Thromboplast Time 22.5 Seconds (24.1-36.2); Prothrombin Time (Protime)PT. 14.5 SECONDS (11.7-14.9)
[2020-12-05 12:29] LABS: Urine Bilirubin Dipstick 1 mg/dL (Negative)
[2020-12-05 12:33] LABS: Bacteria 1+ /hpf (None Seen); Squamous Epithelial Cells - UA 0-5 SEEN /hpf (5-10); White Blood Cells 0-5 SEEN /hpf (0-5)
[2020-12-05] MEDS: Enoxaparin 80 MG/0.8 ML Syringe SC (13:33)
[2020-12-05] MEDS: 0.9% Normal Saline 1,000 ML 999 ML IV (13:33)
[2020-12-05] MEDS: dilTIAZem 25 MG/5 ML Vial 10 MG IV BOLUS (13:33)
[2020-12-05] MEDS: Ceftriaxone 1 GM/50 ML BAG IV (13:34)
--- NOTE | 2020-12-05 13:46 | NURSING ---
DR SLOAN FOR DR LANDEROS
--- NOTE | 2020-12-05 14:01 | NURSING ---
PCU [facility] ONSET AFIB WITH RVR, UTI
--- NOTE | 2020-12-05 14:07 | NURSING ---
DR SLOAN IN WITH PATIENT
--- NOTE | 2020-12-05 14:46 | PCM.HP.STD ---
History of Present Illness Date of Admission: 12/05/20 Chief Complaint: Abdominal pain and constipation The patient is a 80 year old F with a PMH as below who presents to the hospital with constipation for last 6 days as well as abdominal pain that is going down to her rectum. She said that when this first started she started having back pain which has since resolved however she did come into the ER for back pain and was started on narcotics. For the last 6 days she has not been able to have a bowel movement and prior to that she was having hard stools that were painful at times. She has a history of endometrial cancer and she says that she still has a piece of cancer in her however she refuses chemotherapy, but did have surgery as well as radiation. She is status post a hysterectomy and she is also had bladder cancer in the past. She also went into A. fib which she says that she has a history of and she follows with a service order dispatcher chief in [place], she says that she has not been taking any of her medications for the last several days which she says is probably why her heart rate is elevated. She does have shortness of breath which is also new with this constipation however does appear that she has been taking short shallow breaths. Past Medical History Past Medical History (Chronic Problems): Chronic Problems (Last Reviewed 01/11/20 @ 10:32 by Falguni Kline) Endometrial cancer, FIGO stage IIIA (Chronic) Medical History: Medical History (Last Reviewed 01/11/20 @ 10:32 by Falguni Kline) CVA (cerebral vascular accident) I63.9 History of bladder cancer Z85.51 Allergies latex Allergy (Verified 12/02/20 11:46) Hives sulfur dioxide Allergy (Verified 12/02/20 11:46) Hives adhesive tape Adverse Reaction (Verified 12/02/20 11:46) Rash Home Medications: Ambulatory Orders Medication Instructions Recorded aspirin 81 mg tablet,delayed 81 mg PO DAILY 07/29/19 release atorvastatin 20 mg tablet 20 mg PO DAILY 07/29/19 clopidogrel 75 mg tablet 75 mg PO DAILY 07/29/19 lisinopril 2.5 mg tablet 2.5 mg PO DAILY 07/29/19 metformin 500 mg tablet 500 mg PO BID 07/29/19 metoprolol succinate 25 mg capsule 25 mg PO DAILY 07/29/19 sprinkle, ext. release 24 hr Oxycodone HCl/Acetaminophen 1 tab PO Q6H PRN PRN 5 Days #20 tab 12/02/20 [Percocet 5/325] Acetaminophen [Tylenol Arthritis] 1,300 mg PO TID PRN PRN 12/05/20 Surgical History: Surgical History (Last Reviewed 01/11/20 @ 10:32 by Falguni Kline) Carpal tunnel syndrome on left G56.02 H/O carotid endarterectomy Z98.890 H/O dilation and curettage Z98.890 IUD Removal History of [id number] bypass Z95.828 History of back surgery Z98.890 Hx of foot surgery Z98.890 left Pilonidal cyst L05.91 Status post eye surgery Z98.890 Surgical History: hysterectomy, - - CEA Lives: Alone Smoking Status: Former smoker Tobacco Use: Cigarettes Alcohol: None Drugs: None - *Family History Maternal History Items: Cancer Paternal History Items: - - in a car accident, no past medical history that she is aware of Review of Systems Constitutional: Denies: Chills, Fever, Weight Change HEENT: Denies: Head Aches, Sinus Congestion, Sinus Drainage Cardiovascular: Denies: Chest Pain, Palpitations Respiratory: Reports: Shortness of Breath. Denies: Cough, Shortness of breath at rest, Sputum production Gastrointestinal: Reports: Abdominal Pain, Constipation. Denies: Nausea, Vomiting Genitourinary: Denies: Dysuria Musculoskeletal: Denies: Joint Pain, Joint Tenderness Skin: Denies: Rash, Wounds Neurological: Denies: Numbness, Tingling, Focal weakness Psychiatric: Denies: Anxiety, Depression Hematologic/ Lymphatic: Denies: Easy Bruising, Easy Bleeding VTE Information - Inpt Only VTE Present on Admission: No Patient Problems: Active and Suspected Problems (Last Reviewed 01/11/20 @ 10:32 by Falguni Kline) History of hypertension (Acute) History of bladder cancer (Acute) History of type 2 diabetes mellitus (Acute) History of hypercholesterolemia (Acute) New onset atrial fibrillation (Acute) Urinary tract infection (Acute) Prerenal azotemia (Acute) Hyperglycemia due to type 2 diabetes mellitus (Acute) - Physical Exam Vitals/I&O's: Vital Signs Temp Pulse Resp BP Pulse Ox 98.1 F 136 H 22 H 116/80 99 12/05/20 13:37 12/05/20 13:37 12/05/20 13:37 12/05/20 13:37 12/05/20 13:37 Oxygen Flow Rate (L/min) 3 Oxygen Delivery Method Nasal Cannula Weight: 174 lb 1.6 oz Body Mass Index (BMI) 35.2 General: Alert, Oriented x3, Cooperative, No apparent distress HEENT: Atraumatic, PERRLA, EOMI, Normocephalic Oral: Moist Mucosa Neck: Supple, No JVD Lungs: Normal air movement, No rhonchi, No wheeze, No rales, Diminished Cardiovascular: Normal S1, Normal S2, No murmurs, Tachycardic Abdomen: Soft, Non-Distended, No Hepato-splenomegaly, Tender - Mild generalized Extremities: No edema, Capillary Refill Less than 3 Seconds Skin: No rashes, No breakdown Neurological: Neuro grossly intact, Sensory exam intact to light touch and pain Psych/Mental Status: Normal Affect, Appropriate Microbiology Past 72 Hours 12/05/20 12:00 Mucosa - Nose SARS-CoV-2 Antigen (Rapid) - Final Laboratory Results 12/05/20 11:25: WBC 9.0, RBC 3.82 L, Hgb 10.9 L, Hct 35.0 L, MCV 91.6, MCH 28.5, MCHC 31.1 L, RDW Std Deviation 49.1 H, RDW Coeff of Deborah 14.9 H, Plt Count 298, MPV 9.0, Immature Gran % (Auto) 0.700, Neut % (Auto) 85.1 H, Lymph % (Auto) 5.2 L, [place] % (Auto) 8.7, Eos % (Auto) 0.2, Baso % (Auto) 0.1, Absolute Neuts (auto) 7.7, Absolute Lymphs (auto) 0.47 L, Nucleated RBC % 0.2, Differential Comment COMMENT 12/05/20 11:25: PT 14.5, INR 1.2, APTT 22.5 L 12/05/20 11:25: Sodium 139, Potassium 3.7, Chloride 106, Carbon Dioxide 28.0, Anion Gap 5, BUN 34 H, Creatinine 0.92, Estim Creat Clear Calc 60.80, Est GFR (MDRD) Af Amer 75, Est GFR (MDRD) Non-Af 62, BUN/Creatinine Ratio 37.0 H, Glucose 196 H, Calcium 8.8, Total Bilirubin 0.60, AST 42 H, ALT 36, Alkaline Phosphatase 81, Total Protein 6.6, Albumin 3.1 L, Globulin 3.5, Albumin/Globulin Ratio 0.9 12/05/20 11:25: Lactic Acid 1.2 12/05/20 12:05: Urine Color Yellow, Urine Clarity Clear, Urine pH 6.0, Ur Specific [place] 1.025, Urine Protein 30 H, Urine Glucose (UA) Normal, Urine Ketones 50 H, Urine Occult Blood 25 H, Urine Nitrite Negative, Urine Bilirubin 1 H, Urine Urobilinogen 1 H, Ur Leukocyte Esterase Negative, Urine RBC 0 SEEN, Urine WBC 0-5 SEEN, Ur Squamous Epith Cells 0-5 SEEN, Urine Bacteria 1+, Urine Mucus 0 SEEN 12/05/20 14:30: Troponin I Pending, TSH Pending Current Medications Diltiazem HCl 125 mg/ Dextrose 125 mls @ 5 mls/hr IV .Q25H [facility]; Protocol Stop: 12/06/20 14:39 Sodium Chloride (0.9% Saline Lock 10 Ml Syringe) 10 - 40 ml IV UD PRN PRN Reason: SALINE FLUSH Assessment/Plan All Active Problems (Last Reviewed 01/11/20 @ 10:32 by Falguni Kline) Encounter for education (Acute) History of hypertension (Acute) History of bladder cancer (Acute) History of type 2 diabetes mellitus (Acute) History of hypercholesterolemia (Acute) New onset atrial fibrillation (Acute) Urinary tract infection (Acute) Prerenal azotemia (Acute) Hyperglycemia due to type 2 diabetes mellitus (Acute) 1. Constipation with abdominal pain -States secondary to constipation, will provide a mineral oil enema as well as lactulose twice daily -If medications do not work may need to consult general surgery for disimpaction -We will discontinue her narcotics as these are not helping her constipation 2. Chronic A. fib now with RVR/HTN/HLD/PAD/history of carotid endarterectomy -We will restart her home metoprolol as she has not been taking this and it next week make dose adjustments -Continue with aspirin, Plavix, lisinopril -Continue with Lipitor -Blood pressure is stable, troponin is elevated to 1.04 this is likely demand secondary to the tachycardia will trend 3. DM 2 -Blood sugars elevated to 196, will hold her Metformin and place her on a sliding scale insulin -Accu-Cheks AC at bedtime will make adjustments as necessary DVT: Lovenox Inpatient E&M: 36953 Init Hosp L3
[2020-12-05 15:08] LABS: Thyroid Stim Hormone (TSH) 0.62 uIU/mL (0.358-3.74)
[2020-12-05] MEDS: Metoprolol(XL)Succ 25 MG Tablet PO (15:44)
[2020-12-05] MEDS: Lactulose 20 GM/30 ML UDC PO ×2 (16:35→21:22)
[2020-12-05 16:40] LABS: Bedside Glucose 157 mg/dL (70-110)
[2020-12-05] MEDS: Mineral Oil 1 BOTTLE ENEMA 1 ML RC (16:46)
--- NOTE | 2020-12-05 17:29 | NT.THERAPY_ITS ---
Nutrition Therapy Report - History Nutrition Services has been consulted to:: Manage nutrient details of diet order Current diet / nutrition support order:: 1600 mak Cardiac - Anthropometric Measurements Height:: 5 ft 4 in Weight:: 75 kg Body Mass Index (BMI):: 28.3 - Relevant Labs Relevant Labs:: RBC 3.82 M/mm3 (4.2-5.4) L 12/05/20 11:25 Hgb 10.9 g/dL (12.0-15.0) L 12/05/20 11:25 Hct 35.0 % (37-47) L 12/05/20 11:25 MCHC 31.1 g/dL (32-36) L 12/05/20 11:25 RDW Std Deviation 49.1 fl (35.1-43.9) H 12/05/20 11:25 RDW Coeff of Deborah 14.9 % (11.6-14.6) H 12/05/20 11:25 Neut % (Auto) 85.1 % (47-70) H 12/05/20 11:25 Lymph % (Auto) 5.2 % (19-41) L 12/05/20 11:25 Absolute Lymphs (auto) 0.47 X10^3/uL (0.83-4.51) L 12/05/20 11:25 APTT 22.5 Seconds (24.1-36.2) L 12/05/20 11:25 BUN 34 mg/dL (7-18) H 12/05/20 11:25 BUN/Creatinine Ratio 37.0 RATIO (10-20) H 12/05/20 11:25 Glucose 196 mg/dL (74-106) H 12/05/20 11:25 AST 42 U/L (15-37) H 12/05/20 11:25 Troponin I 1.040 ng/mL (<0.045) H* 12/05/20 14:30 Albumin 3.1 g/dL (3.2-5.0) L 12/05/20 11:25 - Assessment Food / Nutrition-Related History:: PO intake lousy x 2 wks d/t not feeling well. UBW: 78.925 kg - wt loss of 5% x 2-3 wks (sig for malnutrition). Pt states limits salt and sugar in diet car [employer] - does not check bld gluc and not interested in diet education at this time. Pt states constipated x 6 days and h as rectal pain - stooling agent ordered - has been on narcotics which may cause issues of constipation - Nutrition Diagnosis Problem / Etiology / Signs & Symptoms (PES):: Inadequate oral intake r/t physiological causes increasing nutrient needs d/t acute illness aeb 5% wt loss x 2-3 wks and po intake <50% x >5 days Evidence of Malnutrition Exists:: Yes Severe PCM:: Acute Illness - Nutrition Intervention Nutrition Prescription:: [id number] mak / day (RMR x 1.3). 60-75 gm pro / day (.8-1 gm/kg). 1700 ml/day (1 ml/mak). [ End ] - Food / Nutrient Delivery Interventions Summary of nutrition intervention:: Will ask pt to reconsider ONS if po intake fails to improve and / or it wt loss occurs. Continue diet as ordered. [ End ] Nutrition education provided?: No - MNT Monitoring Further MNT monitoring and evaluation required?: Yes MNT Follow-up in:: 3-5 days - please call RD/LD if questions or concerns x [phone]
[2020-12-05] MEDS: Metoprolol Tartrate 25 MG Tablet PO (17:51)
--- NOTE | 2020-12-05 20:55 | ECHOD_ITS ---
Reason For Study: AFIB Procedure This was a 2D Doppler, Color Flow transthoracic echocardiogram. Exam performed portable in patient room. Left Ventricle Normal LV size. Moderate global left ventricular systolic dysfunction. The estimated ejection fraction is 30 %. Unable to assess diastolic dysfunction. Right Ventricle Normal RV size. Mild global right ventricular systolic dysfunction. Atria The left atrium is mildly enlarged. The right atrium is mildly enlarged. No doppler evidence for ASD. Mitral Valve There is no mitral annular calcification. Mild diffuse mitral valve thickening. Mild-Moderate (1-2+) eccentric mitral valve insufficiency. Tricuspid Valve Normal tricuspid valve. Mild to moderate (1-2+) tricuspid valve insufficiency. Right ventricular systolic pressure estimated to be 69 mmHg. Aortic Valve Trisinus/trileaflet aortic valve. Mild focal aortic valve calcification. Trivial aortic valve insufficiency. Pulmonic Valve The pulmonic valve is not well visualized. Mild (1+) pulmonic valve insufficiency. Great Vessels Normal sized aortic root. Pericardium/Pleural No pericardial effusion. MMode/2D Measurements & Calculations LVIDd: 4.4 cm IVSd: 0.95 cm Ao root diam: 3.1 cm LVIDs: 3.4 cm LVPWd: 1.0 cm FS: 23.3 % LAV(MOD-bp): 61.2 ml LVAd ap4: 26.7 cm2 SV(MOD-sp4): 23.9 ml LAV(MOD-bp) Indexed: 33.9 ml/m2 EDV(MOD-sp4): 77.0 ml LAV(MOD-sp2): 53.8 ml EDV(sp4-el): 81.4 ml LAV(MOD-sp4): 65.7 ml LVAs ap4: 21.1 cm2 ESV(MOD-sp4): 53.0 ml ESV(sp4-el): 54.4 ml EF(MOD-sp4): 31.1 % EF(sp4-el): 33.1 % SV(sp4-el): 26.9 ml LA A4 area: 22.3 cm2 LA dimension(2D): 3.8 cm RA A4 area: 22.1 cm2 Doppler Measurements & Calculations MV E max lacy: 108.4 cm/sec Ao V2 max: 137.8 cm/sec LV V1 max: 55.0 cm/sec Ao max P.7 mmHg LV V1 max P.2 mmHg PA V2 max: 64.3 cm/sec TR max lacy: 383.4 cm/sec TR max P.7 mmHg Interpretation Summary Moderate global left ventricular systolic dysfunction. The estimated ejection fraction is 30 %. Mild global right ventricular systolic dysfunction. The left atrium is mildly enlarged. Mild diffuse mitral valve thickening. Mild-Moderate (1-2+) eccentric mitral valve insufficiency. Mild to moderate (1-2+) tricuspid valve insufficiency. Mild focal aortic valve calcification. Trivial aortic valve insufficiency. Mild (1+) pulmonic valve insufficiency. Right ventricular systolic pressure estimated to be 69 mmHg c/w pulmonary hypertension. Unable to assess diastolic dysfunction. Ordering Physician: Wilfredo Chisholm Referring Physician: CRUZ FRANCISCO Performed By: Cyn Mast RDCS
[2020-12-05] MEDS: 0.9% Saline Lock 10 ML Syringe IV (21:19)
[2020-12-05] MEDS: Atorvastatin Calcium 20 MG Tablet PO (21:24)
[2020-12-05 21:30] LABS: Bedside Glucose 210 mg/dL (70-110)
[2020-12-05] MEDS: Acetaminophen 325 MG Tablet 650 MG PO (22:23)
[2020-12-06] VITALS (35 sets, daily range): BP systolic 84–121; BP diastolic 53–100; PULSE 98–120; RESP 16–28; TEMP 36.4–37.1; O2SAT 92–100
[2020-12-06] MEDS: 0.9% Saline Lock 10 ML Syringe IV ×3 (02:27→06:47)
[2020-12-06] MEDS: Ondansetron 4 MG/2 ML Vial IV (02:27)
[2020-12-06] MEDS: Amiodarone 360 MG in Dextrose 5% Viaflo Bag 192.8 ML 33.3 MG CONT INF (03:15)
[2020-12-06] MEDS: Lactulose 20 GM/30 ML UDC PO (05:56)
[2020-12-06 06:07] LABS: Absolute Lymphocyte Count 0.57 X10^3/uL (0.83-4.51); Absolute Neutrophil Count 7.5 X10^3/uL (2.0-7.7); Basophil# 0.02 X10^3/uL; Basophil% 0.2 % (0-1); Eosinophil# 0.07 X10^3/uL; Eosinophils% 0.8 % (0-5); Hematocrit 34.1 % (37-47); Hemoglobin 10.3 g/dL (12.0-15.0); Lymphocyte # 0.57 X10^3/ul (4.0); Lymphocyte % 6.3 % (19-41); Mean Corp Hgb Conc 30.2 g/dL (32-36); Mean Corpuscular Hgb 28.5 pg (27.0-32.0); Mean Corpuscular Volume 94.5 fL (81-99); Monocyte# 0.79 X10^3/uL; Monocyte% 8.8 % (0-10); NRBC Flagged by Analyzer 0.2 % (0-5); Neutrophil # 7.48 X10^3/uL (2.7-7.7); Neutrophil % 83.1 % (47-70); POSITIVE DIFFERENTIAL YES; Platelet Count 295 K/mm3 (150-450); RBC Distribution Width CV 15.2 % (11.6-14.6); RBC Distribution Width SD 51.9 fl (35.1-43.9); Red Blood Count 3.61 M/mm3 (4.2-5.4)
[2020-12-06 06:23] LABS: Differential Indicated SCAN CRITERIA MET
[2020-12-06 06:33] LABS: Anion Gap 7 (5-15); BUN 28 mg/dL (7-18); BUN/Creat Ratio 29.7 RATIO (10-20); Calcium,Total 8.7 mg/dL (8.5-10.1); Chloride 107 mmol/L (98-107); Creatinine, Serum 0.94 mg/dL (0.55-1.02); EST Glomerular Filtration Rate 61 mL/min (>60); Est Glom Filt Rate - Afr Amer 73 mL/min (>60); Estimated Creatinine Clearance 41.22 ml/min; Glucose 218 mg/dL (74-106); Potassium 3.6 mmol/L (3.5-5.1); Sodium Level 138 mmol/L (136-145)
[2020-12-06 06:41] LABS: Differential Comment SCANNED
[2020-12-06] MEDS: Insulin Lispro 100 UNIT/ML INSULN.PEN SC ×3 (06:47→22:18)
[2020-12-06 06:55] LABS: Bedside Glucose 241 mg/dL (70-110)
[2020-12-06] MEDS: Aspirin E.C. 81 MG Tablet PO (08:33)
[2020-12-06] MEDS: Clopidogrel Bisulfate 75 MG Tablet PO (08:33)
--- NOTE | 2020-12-06 08:47 | PN_ITS ---
Patient Problems: Active and Suspected Problems (Last Reviewed 01/11/20 @ 10:32 by Falguni Kline) History of hypertension (Acute) History of bladder cancer (Acute) History of type 2 diabetes mellitus (Acute) History of hypercholesterolemia (Acute) New onset atrial fibrillation (Acute) Urinary tract infection (Acute) Prerenal azotemia (Acute) Hyperglycemia due to type 2 diabetes mellitus (Acute) Subjective: Had several large BMs. Abdomen is feeling much better. Denies chest pain. Sees a belt maker helper in [place] who told her she has intermittent afib and did not need anticoagulation (her report). Denies any bleeding problems. Vitals/I&O's: Vital Signs Temp Pulse Resp BP Pulse Ox 36.4 C L 101 H 19 H 94/73 99 12/06/20 06:00 12/06/20 08:00 12/06/20 08:00 12/06/20 08:00 12/06/20 08:00 Oxygen Flow Rate (L/min) 2 Oxygen Delivery Method Room Air Weight: 75 kg Body Mass Index (BMI) 28.3 Intake and Output for Last 24 Hours 12/04/20 12/05/20 12/06/20 23:59 23:59 23:59 Intake Total 1083.58 / 1203.58 398.20 / 398.20 Output Total Balance 1082.58 / 1202.58 398.20 / 398.20 General: Alert, No apparent distress HEENT: Atraumatic, Normocephalic Oral: Moist Mucosa, No Gingival or Mucosal Lesions/ Ulcerations Neck: No Nodes, Thyroid Normal Size and Texture Lungs: Clear to auscultation, Normal air movement, No rhonchi, No wheeze, No rales Cardiovascular: No murmurs, Irregular Rate, Tachycardic Abdomen: Bowel Sounds Present, Soft, Non Tender, Non-Distended, No Hepato- splenomegaly Extremities: No edema, No Calf Tenderness Skin: No rashes, No breakdown Musculoskeletal: No Tenderness to Palpation of Joints or Extremities, No Muscle Wasting Neurological: Muscle tone normal, Coordination normal Psych/Mental Status: Normal Affect, Appropriate Microbiology Past 72 Hours 12/05/20 12:00 Mucosa - Nose SARS-CoV-2 Antigen (Rapid) - Final Laboratory Results 12/05/20 11:25: WBC 9.0, RBC 3.82 L, Hgb 10.9 L, Hct 35.0 L, MCV 91.6, MCH 28.5, MCHC 31.1 L, RDW Std Deviation 49.1 H, RDW Coeff of Deborah 14.9 H, Plt Count 298, MPV 9.0, Immature Gran % (Auto) 0.700, Neut % (Auto) 85.1 H, Lymph % (Auto) 5.2 L, [place] % (Auto) 8.7, Eos % (Auto) 0.2, Baso % (Auto) 0.1, Absolute Neuts (auto) 7.7, Absolute Lymphs (auto) 0.47 L, Nucleated RBC % 0.2, Differential Comment COMMENT 12/05/20 11:25: PT 14.5, INR 1.2, APTT 22.5 L 12/05/20 11:25: Sodium 139, Potassium 3.7, Chloride 106, Carbon Dioxide 28.0, Anion Gap 5, BUN 34 H, Creatinine 0.92, Estim Creat Clear Calc 60.80, Est GFR (MDRD) Af Amer 75, Est GFR (MDRD) Non-Af 62, BUN/Creatinine Ratio 37.0 H, Glucose 196 H, Calcium 8.8, Total Bilirubin 0.60, AST 42 H, ALT 36, Alkaline Phosphatase 81, Total Protein 6.6, Albumin 3.1 L, Globulin 3.5, Albumin/Globulin Ratio 0.9 12/05/20 11:25: Lactic Acid 1.2 12/05/20 12:05: Urine Color Yellow, Urine Clarity Clear, Urine pH 6.0, Ur Specific [place] 1.025, Urine Protein 30 H, Urine Glucose (UA) Normal, Urine Ketones 50 H, Urine Occult Blood 25 H, Urine Nitrite Negative, Urine Bilirubin 1 H, Urine Urobilinogen 1 H, Ur Leukocyte Esterase Negative, Urine RBC 0 SEEN, Urine WBC 0-5 SEEN, Ur Squamous Epith Cells 0-5 SEEN, Urine Bacteria 1+, Urine Mucus 0 SEEN 12/05/20 14:30: Troponin I 1.040 H*, TSH 0.62 12/05/20 16:32: POC Glucose 157 H 12/05/20 17:45: Troponin I 1.050 H* 12/05/20 20:09: Troponin I 0.975 H* 12/05/20 21:22: POC Glucose 210 H 12/06/20 05:55: WBC 9.0, RBC 3.61 L, Hgb 10.3 L, Hct 34.1 L, MCV 94.5, MCH 28.5, MCHC 30.2 L, RDW Std Deviation 51.9 H, RDW Coeff of Deborah 15.2 H, Plt Count 295, MPV 9.0, Immature Gran % (Auto) 0.800, Neut % (Auto) 83.1 H, Lymph % (Auto) 6.3 L, [place] % (Auto) 8.8, Eos % (Auto) 0.8, Baso % (Auto) 0.2, Absolute Neuts (auto) 7.5, Absolute Lymphs (auto) 0.57 L, Nucleated RBC % 0.2, Differential Comment SCANNED 12/06/20 05:55: Sodium 138, Potassium 3.6, Chloride 107, Carbon Dioxide 24.0, Anion Gap 7, BUN 28 H, Creatinine 0.94, Estim Creat Clear Calc 41.22, Est GFR (MDRD) Af Amer 73, Est GFR (MDRD) Non-Af 61, BUN/Creatinine Ratio 29.7 H, Glucose 218 H, Calcium 8.7 12/06/20 06:46: POC Glucose 241 H Current Medications Acetaminophen (Acetaminophen 325 Mg Tablet) 650 mg PO Q6H PRN PRN PRN Reason: Pain Score 1-10/Temp > 100.7 F Last Admin: 12/05/20 22:23 Dose: 650 mg Documented by: Aspirin (Aspirin E.C. 81 Mg Tablet) [facility] Last Admin: 12/06/20 08:33 Dose: 81 mg Documented by: Atorvastatin Calcium (Atorvastatin Calcium 20 Mg Tablet) 20 mg PO QHS [facility] Last Admin: 12/05/20 21:24 Dose: 20 mg Documented by: Clopidogrel Bisulfate (Clopidogrel Bisulfate 75 Mg Tablet) 75 mg PO DAILY [facility] Last Admin: 12/06/20 08:33 Dose: 75 mg Documented by: Dextrose (Dextrose 50%-Water 25 Gm/50 Ml Disp.Syrin) 0 gm IV X1 PRN; Protocol PRN Reason: Hypoglycemia Glucagon (Glucagon 1 Mg/Ml Syringe) 1 mg IM .X1 PRN PRN Reason: Hypoglycemia Amiodarone HCl 360 mg/ (Dextrose) 200 mls @ 33.333 mls/hr CONT INF .Q6H [facility] Stop: 12/06/20 08:59 Last Infusion: 12/06/20 08:00 Dose: 1 mg/min, 33.3 mls/hr Documented by: Amiodarone HCl 360 mg/ (Dextrose) 200 mls @ 16.667 mls/hr CONT INF .Q12H [facility] Stop: 12/07/20 02:58 Heparin Sodium/Dextrose () 25,000 units in 250 mls @ 0 mls/hr IV .Q0M [facility]; Protocol Insulin Human Lispro (Insulin Lispro 100 Unit/Ml Insuln.Pen) 0 unit SC ACHS [facility]; Protocol Last Admin: 12/06/20 06:47 Dose: 4 units Documented by: Lactulose (Lactulose 20 Gm/30 Ml Udc) 20 gm PO TID [facility] Last Admin: 12/06/20 05:56 Dose: 20 gm Documented by: Lisinopril (Lisinopril 2.5 Mg Tablet) 2.5 mg PO DAILY [facility] Melatonin (Melatonin 3 Mg Tablet) 3 mg PO QHS PRN PRN PRN Reason: INSOMNIA Metoprolol Tartrate (Metoprolol Tartrate 25 Mg Tablet) 25 mg PO BID [facility] Last Admin: 12/05/20 17:51 Dose: 25 mg Documented by: Ondansetron HCl (Ondansetron 4 Mg/2 Ml Vial) 4 mg IV Q8H PRN PRN PRN Reason: NAUSEA/VOMITING Last Admin: 12/06/20 02:27 Dose: 4 mg Documented by: Sodium Chloride (0.9% Saline Lock 10 Ml Syringe) 10 - 40 ml IV UD PRN PRN Reason: SALINE FLUSH Last Admin: 12/06/20 06:47 Dose: 20 ml Documented by: STROKE Vital Signs/Narrative: Vital Signs Temp Pulse Resp BP Pulse Ox 12/06/20 08:00 101 H 19 H 94/73 99 12/06/20 07:00 107 H 21 H 91/64 100 12/06/20 06:56 111 H 12/06/20 06:00 36.4 C L 100 23 H 102/68 98 12/06/20 05:00 101 H 20 H 90/74 99 Medical Necessity - Tobacco Use Smoking Status: Former smoker Tobacco Use: Cigarettes Assessment/Plan All Active Problems (Last Reviewed 01/11/20 @ 10:32 by Falguni Kline) Encounter for education (Acute) History of hypertension (Acute) History of bladder cancer (Acute) History of type 2 diabetes mellitus (Acute) History of hypercholesterolemia (Acute) New onset atrial fibrillation (Acute) Urinary tract infection (Acute) Prerenal azotemia (Acute) Hyperglycemia due to type 2 diabetes mellitus (Acute) 1. afib with RVR * improved * Per patient's report she has what sounds like paroxysmal atrial fibrillation and that she was not can for anticoagulation given its intermittent nature. Again this was her report. * Will request records from [facility] (I'm not sure her belt maker helper is there or not, but it is the hospital in [place]) * On amio gtt plus metoprolol tartrate * DW Dr. Caro, cardiology, he will see. * She has not been on anticoagulation but from what I can gather there is no obvious contraindication to anticoagulation even with the patient's underlying malignancy. My discussion with cardiology recommends heparin drip for now over enoxaparin. * Check echocardiogram 2. Non-STEMI * May be type II, demand event related with A. fib * check echo * Cardiology on consult * Aspirin * Patient is asymptomatic 3. Constipation * Resolved * Patient did receive lactulose, mineral oil which had dramatic results * Likely complicated by the patient's use of narcotics which have been held at present. * Will hold lactulose for now * Discussed with the patient that for regular bowel regimen, would recommend daily use of MiraLAX. Patient was using it as needed before and with hold if she is having more frequent bowel movements. 4. 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 * patient has and continues to decline treatment 5. VTE prophylaxis: LMWH Inpatient E&M: 47123 [facility] Hosp L3
[2020-12-06] MEDS: Amiodarone 360 MG in Dextrose 5% Viaflo Bag 192.8 ML 16.7 MG CONT INF ×2 (09:20→21:50)
[2020-12-06] MEDS: Heparin Injection (Vial) 5,000 UNIT/ML VIAL 5000 UNIT IV (09:56)
[2020-12-06] MEDS: HEPARIN/D5w 25,000 UNITS 25,000 UNITS/250 ML IV.SOLN. 11 UNITS IV (10:10)
--- NOTE | 2020-12-06 12:04 | PCM.CONS.C ---
Reason for Consult Date of Consultation: 12/06/20 History of Present Illness: The patient is a 80 year old F [] Past Medical History Allergies/Adverse Reactions: Allergies latex Allergy (Verified 12/02/20 11:46) Hives sulfur dioxide Allergy (Verified 12/02/20 11:46) Hives adhesive tape Adverse Reaction (Verified 12/02/20 11:46) Rash Home Medications: Ambulatory Orders Medication Instructions Recorded aspirin 81 mg tablet,delayed 81 mg PO DAILY 07/29/19 release atorvastatin 20 mg tablet 20 mg PO DAILY 07/29/19 clopidogrel 75 mg tablet 75 mg PO DAILY 07/29/19 lisinopril 2.5 mg tablet 2.5 mg PO DAILY 07/29/19 metformin 500 mg tablet 500 mg PO BID 07/29/19 metoprolol succinate 25 mg capsule 25 mg PO DAILY 07/29/19 sprinkle, ext. release 24 hr Oxycodone HCl/Acetaminophen 1 tab PO Q6H PRN PRN 5 Days #20 tab 12/02/20 [Percocet 5/325] Acetaminophen [Tylenol Arthritis] 1,300 mg PO TID PRN PRN 12/05/20 Past Medical History (Chronic Problems): Chronic Problems (Last Reviewed 01/11/20 @ 10:32 by Falguni Kline) Endometrial cancer, FIGO stage IIIA (Chronic) Surgical History: hysterectomy, - - CEA - *Family History Maternal History Items: Cancer Paternal History Items: - - in a car accident, no past medical history that she is aware of Lives: Alone Smoking Status: Former smoker Tobacco Use: Cigarettes Alcohol: None Drugs: None Objective: Vital Signs Temp Pulse Resp BP Pulse Ox 98.2 F 98 21 H 96/81 H 95 12/06/20 10:00 12/06/20 11:05 12/06/20 11:05 12/06/20 11:05 12/06/20 11:05 Oxygen Flow Rate (L/min) 2 Oxygen Delivery Method Room Air Weight: 165 lb 5.547 oz Body Mass Index (BMI) 28.3 Intake and Output for Last 24 Hours 12/04/20 12/05/20 12/06/20 23:59 23:59 23:59 Intake Total 1083.58 / 1203.58 469.22 / 469.22 Output Total Balance 1082.58 / 1202.58 469.22 / 469.22 12/05/20 11:25: PT 14.5, INR 1.2, APTT 22.5 L 12/05/20 11:25: Sodium 139, Potassium 3.7, Chloride 106, Carbon Dioxide 28.0, Anion Gap 5, BUN 34 H, Creatinine 0.92, Est GFR (MDRD) Af Amer 75, Est GFR (MDRD) Non-Af 62, BUN/Creatinine Ratio 37.0 H, Glucose 196 H, Calcium 8.8, Total Bilirubin 0.60 12/05/20 11:25: Lactic Acid 1.2 12/05/20 12:05: Urine Color Yellow, Urine Clarity Clear, Urine pH 6.0, Ur Specific [place] 1.025, Urine Protein 30 H, Urine Glucose (UA) Normal, Urine Ketones 50 H, Urine Occult Blood 25 H, Urine Nitrite Negative, Urine Bilirubin 1 H, Urine Urobilinogen 1 H, Ur Leukocyte Esterase Negative, Urine RBC 0 SEEN, Urine WBC 0-5 SEEN 12/05/20 14:30: Troponin I 1.040 H* 12/05/20 17:45: Troponin I 1.050 H* 12/05/20 20:09: Troponin I 0.975 H* 12/06/20 05:55: WBC 9.0, RBC 3.61 L, Hgb 10.3 L, Hct 34.1 L, MCV 94.5, MCH 28.5, MCHC 30.2 L, Plt Count 295, MPV 9.0, Immature Gran % (Auto) 0.800, Neut % (Auto) 83.1 H, Lymph % (Auto) 6.3 L, [place] % (Auto) 8.8, Eos % (Auto) 0.8, Baso % (Auto) 0.2, Absolute Neuts (auto) 7.5, Nucleated RBC % 0.2 12/06/20 05:55: Sodium 138, Potassium 3.6, Chloride 107, Carbon Dioxide 24.0, Anion Gap 7, BUN 28 H, Creatinine 0.94, Est GFR (MDRD) Af Amer 73, Est GFR (MDRD) Non-Af 61, BUN/Creatinine Ratio 29.7 H, Glucose 218 H, Calcium 8.7 Rhythm: EKG: ECHO: Stress Test: Cardiac Cath: PCI: CT Surgery: Holter monitor: EPS: PPM: CXR: Chest CT Scan: Assessment/Plan Reason for Consultation: This patient had history of CAD, CABG Cardiac consultation requested for evaluation of A. fib with RVR and had very mild elevation of cardiac biomarkers troponin. History Of Present Illness: Patient is 80-year-old female, lives with her son She had symptoms of weakness lower extremity also she had a prior history of stroke 4 years ago. Review of Systems: Constitution: Denies fatigue, recent fever or chills. HEENT: Denies vision changes, Denies hearing loss, Denies throat pain CV: See HPI Resp: No symptoms of shortness of breath or cough reported. GI: Denies nausea, heartburn or melena. : Denies hematuria. Extremities: Denies edema. Neuro: Denies syncope or pre-syncopal symptoms. Heme: Denies easy bruising or bleeding Musculo: Denies neck pain, Denies back pain Skin: Denies rashes, Denies itching Physical Exam: Vitals: [VITALS] General: Alert and oriented, in no acute distress HEENT: Normocephalic, atraumatic Neck: Supple, normal ROM, no carotid bruits Cardiac: Underlying cardiac rhythm is atrial fibrillation with rapid ventricular rate. S1-S2 is irregular There is no murmur Respiratory: Normal breath sounds GI: Abdomen soft, non tender, obese abdomen Lower Extremity: No cyanosis no lower extremity edema, no wounds Skin: Warm and dry, no rash Vascular: Pedal pulses palpable Neurological: Alert and oriented, CN grossly intact, non-focal exam Assessment: 80-year-old patient with known to have history of CAD with coronary artery bypass surgery On this admission she had atrial fibrillation with rapid ventricular rate she denied any symptoms of chest pain. Also patient had a prior history of stroke/no detailed history available Plan: I reviewed the current evaluation here in the hospital including the EKG color television console monitor The electrocardiogram showed underlying atrial fibrillation with rapid ventricular rate and infrequent episode of PVC Patient could not tolerate diltiazem and currently on amiodarone IV and heparin. According to the [id number] vasc score she is a high risk patient. Recommendation is to continue medical therapy, she will require anticoagulation due to the high risk of stroke stroke Also evaluated by echocardiogram and assess further by nuclear stress test. Aden Caro MD,FACC,[facility]
[2020-12-06 12:36] LABS: Bedside Glucose 214 mg/dL (70-110)
--- NOTE | 2020-12-06 12:53 | CASEMGMT ---
LUCIO KIDD assessment: Face to Face with patient for initial transition planning/care coordination assessment. RN MARTI introduced self and role at [facility], pt voices understanding and consents to assessment at this time. Pt is lying in bed in no distress at this time. Pt is A/Ox4 at this time and answers all questions appropriately at this time. Pt gets tearful at times during assessment about 'her legs not working/doing what I want them to do.' Pt states that she has had some falls(unable to get up until son came home from work) in the last 6 days or so at home and prior to that she was completely independent. Care providers, pharmacy, and demographics verified. Presentation: Pt recently dx w/ CA and states has been having rapid decline. started w/ rectal pain, started taking oxycodone Admitting dx: Afib RVR PCP: [facility] Specialists: Pt states no current specialists, states I quit those. When asked what pt meant in reference to this, she stated 'They said there was nothing more they could do for me, so why should I go see them.' Preferred Pharmacy: [facility] Insurance: [employer] Prescription Benefit: [employer] Living Will/HPOA: Pt has LW/HPOA and she brought the originals with her. This RN CM copied LW/HPOA and placed them on the chart at this time. Pt's son, Allen Johnston, is HPOA. 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 Pt states is normally independent with ADL's but has been struggling for the last 6 days or so. Transportation: Pt states drives self or son drives and states no transportation concerns at this time. DME/HHC: Pt states has the following DME: canex3, walker, rollator, w/c, grab bars, and shower chair. Pt states no need for any further DME at this time. Pt states has had HHC in the past but has not been to SNF. Pt states some concerns with going home at time of discharge d/t recent falls. Pt is retired. Pt states does not smoke cigarettes or drink ETOH. Pt states no further concerns/needs at this time. CM to follow for therapy evals and any further discharge planning/needs. Advised pt to ask for CM if any further questions/concerns/needs arise, voices understanding. Pt Goal: Home Plan: TBD, pending PT/OT evals. Eyal VALDES CM
--- NOTE | 2020-12-06 14:42 | CASEMGMT ---
Social Work SW met with pt in room and introduced self and role of SW. Pt stating frustration that she is not able to function as she had previously. Pt stating that over the last week her legs have become weaker and she has had three falls. Pt finds purpose in doing things around the house such as cooking for her and her son. Pt lives with her son but so works second shift and pt is alone and needs to be able to care for herself. SW provided emotional support. SW spoke with pt about going to short term SNF for rehab prior to return home. Discussed benefits of SNF to improve functionality prior to return home and explained insurance coverage. Pt was given list of SNF providers including quality and resource use data and consistent with the patients preferred geographic region, medical needs, and insurance network. SW reviewed list with pt. Pt would like to speak to her son Allen about options however son is currently at work. SW will check back with pt tomorrow once she has time to consider option and speak with her son. DEMETRICE Contreras
[2020-12-06] MEDS: Loperamide 2 MG Capsule PO (15:57)
--- NOTE | 2020-12-06 16:14 | CASEMGMT ---
Pt qualifies for Palliative referral per the [facility] palliative screening tool at this time. Dr. De Anda aware and states ok for Palliative c/s at this time. Palliative updated at this time. Eyal VALDES
[2020-12-06 16:43] LABS: Partial Thromboplast Time 72.3 Seconds (24.1-36.2)
[2020-12-06 17:26] LABS: Bedside Glucose 171 mg/dL (70-110)
[2020-12-06] MEDS: Atorvastatin Calcium 20 MG Tablet PO (22:23)
[2020-12-06 22:25] LABS: Bedside Glucose 210 mg/dL (70-110)
[2020-12-06 23:17] LABS: Partial Thromboplast Time 62.2 Seconds (24.1-36.2)
[2020-12-07] VITALS (32 sets, daily range): BP systolic 81–112; BP diastolic 47–98; PULSE 87–123; RESP 14–30; TEMP 35.9–36.7; O2SAT 91–98
--- NOTE | 2020-12-07 01:33 | NURSING ---
Updated pt's son, Johnathna around 1999 on 12/06/20. Left note for Case Management that he would like to discuss/ask questions regarding palliative care and/or help in the home for pt. Lisa RN
[2020-12-07 05:23] LABS: Absolute Lymphocyte Count 0.64 X10^3/uL (0.83-4.51); Absolute Neutrophil Count 5.4 X10^3/uL (2.0-7.7); Basophil# 0.02 X10^3/uL; Basophil% 0.3 % (0-1); Eosinophil# 0.05 X10^3/uL; Eosinophils% 0.7 % (0-5); Hematocrit 33.7 % (37-47); Hemoglobin 10.2 g/dL (12.0-15.0); Lymphocyte # 0.64 X10^3/ul (4.0); Lymphocyte % 9.4 % (19-41); Mean Corp Hgb Conc 30.3 g/dL (32-36); Mean Corpuscular Hgb 28.7 pg (27.0-32.0); Mean Corpuscular Volume 94.9 fL (81-99); Mean Platelet Vol. 9.2 fl (6.2-12.0); Monocyte# 0.65 X10^3/uL; Monocyte% 9.5 % (0-10); NRBC Flagged by Analyzer 0.4 % (0-5); Neutrophil # 5.38 X10^3/uL (2.7-7.7); Neutrophil % 78.8 % (47-70); Platelet Count 298 K/mm3 (150-450); RBC Distribution Width CV 15.4 % (11.6-14.6); RBC Distribution Width SD 52.6 fl (35.1-43.9); Red Blood Count 3.55 M/mm3 (4.2-5.4); White Blood Count 6.8 K/mm3 (4.4-11.0)
[2020-12-07 05:36] LABS: Anion Gap 10 (5-15); BUN 32 mg/dL (7-18); BUN/Creat Ratio 32.4 RATIO (10-20); Calcium,Total 8.2 mg/dL (8.5-10.1); Chloride 105 mmol/L (98-107); Creatinine, Serum 0.99 mg/dL (0.55-1.02); EST Glomerular Filtration Rate 57 mL/min (>60); Est Glom Filt Rate - Afr Amer 70 mL/min (>60); Estimated Creatinine Clearance 39.14 ml/min; Glucose 183 mg/dL (74-106); Potassium 3.5 mmol/L (3.5-5.1); Sodium Level 136 mmol/L (136-145)
[2020-12-07 05:53] LABS: Partial Thromboplast Time 44.6 Seconds (24.1-36.2)
[2020-12-07] MEDS: Heparin Injection (Vial) 5,000 UNIT/ML VIAL IV (06:34)
[2020-12-07] MEDS: Insulin Lispro 100 UNIT/ML INSULN.PEN SC ×4 (06:46→21:52)
[2020-12-07 06:50] LABS: Bedside Glucose 200 mg/dL (70-110)
--- NOTE | 2020-12-07 08:39 | PCM.CONS.P ---
History of Present Illness Date of Consult: 12/07/20 Reason for Consult: leg weakness, decline Requesting physician: Dr. Curran Primary care physician: Dr. Tano Cornejo MD - History of Present Illness Irena Johnston is an 80 year old female, admitted to [facility] on 12/05/20 with abdominal pain from constipation, progressive leg weakness, and afib with RVR. She was in ER a few days ago with back pain, started on Percocet which helped the pain but caused constipation. Her son stopped it a day prior to admission because her leg weakness had progressed. She admits to about two months of increasing leg weakness, notes that she was trying to hide it from her son. For the past 7-8 days, there was a significant increase in weakness with a fall. She was needing more help with transfers from her son. She lives with son Allen in [place], he works second shift so she is alone in the evenings. She has been trying to use a two-wheeled walker at home, but even this has become difficult. She has the most trouble getting out of bed, the bed is high enough that she has to slide off the edge without her feet touching the ground, and given her recent increased weakness, she realizes this is dangerous. She has a history of stage 3 endometrial cancer diagnosed in Spring 2018, s/p surgical resection and XRT, declined chemotherapy because the side effects were too harsh. She was told there was a small amount of cancer that the surgery didn't get, and that it would likely return someday, but was not given a timeframe. She wouldn't want to know if it was back. She is hoping to return home, but knows she would need to be stronger. She has been feeling frustrated lately, but denies depression. She doesn't have a prior history of depression, and has never been on antidepressants before. Her son Allen is her POA for health care. She has had conversations about her wishes with him. She does not want intubation or CPR. Patient Problems: Chronic Problems (Last Reviewed 01/11/20 @ 10:32 by Falguni Kline) Endometrial cancer, FIGO stage IIIA (Chronic) Surgical History: hysterectomy, - - CEA Psychiatric History: No pertinent psych hx Home Medications: Ambulatory Orders Medication Instructions Recorded aspirin 81 mg tablet,delayed 81 mg PO DAILY 07/29/19 release atorvastatin 20 mg tablet 20 mg PO DAILY 07/29/19 clopidogrel 75 mg tablet 75 mg PO DAILY 07/29/19 lisinopril 2.5 mg tablet 2.5 mg PO DAILY 07/29/19 metformin 500 mg tablet 500 mg PO BID 07/29/19 metoprolol succinate 25 mg capsule 25 mg PO DAILY 07/29/19 sprinkle, ext. release 24 hr Oxycodone HCl/Acetaminophen 1 tab PO Q6H PRN PRN 5 Days #20 tab 12/02/20 [Percocet 5/325] Acetaminophen [Tylenol Arthritis] 1,300 mg PO TID PRN PRN 12/05/20 Allergies latex Allergy (Verified 12/02/20 11:46) Hives sulfur dioxide Allergy (Verified 12/02/20 11:46) Hives adhesive tape Adverse Reaction (Verified 12/02/20 11:46) Rash Maternal History Items: Cancer Paternal History Items: - - in a car accident, no past medical history that she is aware of - Social History Lives: With Family - lives with son Allen in [place]. [place] Smoking Status: Former smoker Tobacco Use: Cigarettes Alcohol: None Drugs: None - Spiritual Assessment Used to attend [employer] with her father but no longer felt up to it after he in a car accident Code Status: DNRCC-A Advanced Care Planning: Son Allen is her POA. Her other son Johnathan (lives in [place]) is alternate. Did not have a prior DNR order, but does not wish for CPR or ventilation, agrees to DNR-Arrest status Other social history: . 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 Lives with zach Villa in [place]. Son Johnathan lives in [place]. Sabianism, hasn't attended rom[employer] cath[employer] since her father was killed in a car accident (they used to attend together, it was too hard to return without him). Goals of Care: Hoping for her leg weakness to improve with therapy, would like to return home to live with her son in [place] Review of Systems Constitutional: Reports: Weakness, Fatigue. Denies: Anorexia, Fever Eyes: Denies: Blurred vision HEENT: Denies: Difficulty Hearing Cardiovascular: Denies: Chest Pain Respiratory: Reports: Shortness of breath upon exertion. Denies: Cough Gastrointestinal: Reports: Abdominal Pain - resolved after constipation resolved, Constipation - probably from opioids (wasn't on scheduled bowel med) Genitourinary: Denies: Dysuria, Retention Musculoskeletal: Reports: Back Pain - new onset - went to ER recently, better now, Joint Pain - knees - chronic, doesn't want surgery but has had injections; usually takes Tylenol Skin: Reports: Dryness. Denies: Pruritis Neurological: Reports: Focal weakness - legs, Incoordination - due to weakness Psychiatric: Denies: Anxiety, Depression - frustrated but denies being depressed Physical Exam Palliative Performance Scale %: 40 General: Alert, Oriented x3, Cooperative HEENT: Atraumatic, - - Pupils equal 3mm Oral: Moist Mucosa Neck: Supple Lungs: Clear to auscultation, - - Mild conversational dyspnea, mild tachypnea Cardiovascular: Normal S1, Normal S2, Irregular Rate, Tachycardic Last BM:: 12/06 Abdomen: Soft, Non Tender, Non-Distended, Obese Extremities: No edema Skin: No rashes Neurological: Neuro grossly intact - Tearful discussion her leg weakness, her cancer, etc but denies depression Objective: Vital Signs Temp Pulse Resp BP Pulse Ox 97.9 F 118 H 26 H 105/66 93 12/07/20 04:00 12/07/20 07:36 12/07/20 06:00 12/07/20 06:00 12/07/20 07:10 Oxygen Flow Rate (L/min) 2 Oxygen Delivery Method Room Air Weight: 75 kg Body Mass Index (BMI) 28.3 Intake and Output for Last 24 Hours 12/05/20 12/06/20 12/07/20 23:59 23:59 23:59 Intake Total 1083.58 / 1203.58 1019.48 / 1036.18 460.57 / 460.57 Output Total Balance 1082.58 / 1202.58 1019.48 / 1036.18 460.57 / 460.57 Microbiology Past 72 Hours 12/05/20 11:28 Blood Culture - Preliminary Blood Culture (Wb) - Left Wrist No growth in 48 hours. 12/05/20 11:25 Blood Culture - Preliminary Blood Culture (Wb) - Anticubital Right No growth in 48 hours. 12/05/20 12:05 Urine Culture - Preliminary Urine, Catheterized Culture exhibits no growth. 12/05/20 12:00 SARS-CoV-2 Antigen (Rapid) - Final Mucosa - Nose Laboratory Tests Past 24 Hrs 12/06/20 12/06/20 12/07/20 16:25 22:55 05:16 WBC 6.8 RBC 3.55 L Hgb 10.2 L Hct 33.7 L MCV 94.9 MCH 28.7 MCHC 30.3 L RDW Std Deviation 52.6 H RDW Coeff of Deborah 15.4 H Plt Count 298 MPV 9.2 Immature Gran % (Auto) 1.300 H Neut % (Auto) 78.8 H Lymph % (Auto) 9.4 L [place] % (Auto) 9.5 Eos % (Auto) 0.7 Baso % (Auto) 0.3 Absolute Neuts (auto) 5.4 Absolute Lymphs (auto) 0.64 L Nucleated RBC % 0.4 APTT 72.3 H 62.2 H Sodium Potassium Chloride Carbon Dioxide Anion Gap BUN Creatinine Estim Creat Clear Calc Est GFR (MDRD) Af Amer Est GFR (MDRD) Non-Af BUN/Creatinine Ratio Glucose Calcium 12/07/20 12/07/20 05:16 05:16 WBC RBC Hgb Hct MCV MCH MCHC RDW Std Deviation RDW Coeff of Deborah Plt Count MPV Immature Gran % (Auto) Neut % (Auto) Lymph % (Auto) [place] % (Auto) Eos % (Auto) Baso % (Auto) Absolute Neuts (auto) Absolute Lymphs (auto) Nucleated RBC % APTT 44.6 H Sodium 136 Potassium 3.5 Chloride 105 Carbon Dioxide 21.0 Anion Gap 10 BUN 32 H Creatinine 0.99 Estim Creat Clear Calc 39.14 Est GFR (MDRD) Af Amer 70 Est GFR (MDRD) Non-Af 57 L BUN/Creatinine Ratio 32.4 H Glucose 183 H Calcium 8.2 L Assessment/Plan All Active Problems (Last Reviewed 01/11/20 @ 10:32 by Falguni Kline) Encounter for education (Acute) History of hypertension (Acute) History of bladder cancer (Acute) History of type 2 diabetes mellitus (Acute) History of hypercholesterolemia (Acute) New onset atrial fibrillation (Acute) Urinary tract infection (Acute) Prerenal azotemia (Acute) Hyperglycemia due to type 2 diabetes mellitus (Acute) 80 year old female with Stage 3 endometrial cancer, admitted for afib with RVR, progressive leg weakness 1. Leg weakness - progressive, likely multifactorial. One possible cause is progression of her cancer but she states she wouldn't want imaging to evaluate for this. Plan rehab at local [facility], then hoping to return home. Palliative will follow at [facility] to assist with transitions, symptom management, and decision making 2. Knee pain - states controlled with 3900mg of Tylenol daily (650mg 6 times a day). Recently on Percocet for her back, which helped the back pain but caused a lot of constipation (wasn't given a scheduled bowel med while on it). She didn't pay attention to whether it helped her knee pain. If pain prevents full participation in therapy, will discuss options then - possibly steroid burst, intra-articular steroids, or low dose opioid (with scheduled bowel med) 3. Constipation - due to opioids, resolved after they were stopped and with laxatives. Still at risk for constipation even if not on opioids given her immobility, will follow at [facility] and adjust meds as needed 4. Goals of care: discussed wishes and code status options. She has LW/POA. She wants to be a DNR-Arrest and agrees to this order. Will complete DNR form for transfer to [facility]. 5. Depressed mood/tearfulness - at this point she identifies it as frustration rather than depression. No history of depression. Will follow at [facility], could add antidepressant if indicated. Discussed with Dr. Curran. Will call son Allen to discuss palliative with him. Time 7:40-8:50AM, over half of visit was education/counseling re: ddx weakness, options for treating knee pain, palliative services, benefits of skilled PT for leg weakness. Also spent approx 18 min on advance care planning including reviewing LW and POA, discussing code status options, and instituting order for DNR-Arrest.
[2020-12-07] MEDS: HEPARIN/D5w 25,000 UNITS 25,000 UNITS/250 ML IV.SOLN. 12 UNITS IV (09:01)
[2020-12-07] MEDS: Metoprolol Tartrate 25 MG Tablet PO (09:04)
[2020-12-07] MEDS: Aspirin E.C. 81 MG Tablet PO (09:04)
[2020-12-07] MEDS: Clopidogrel Bisulfate 75 MG Tablet PO (09:05)
[2020-12-07] MEDS: Amiodarone 360 MG in Dextrose 5% Viaflo Bag 192.8 ML 16.7 MG CONT INF ×2 (10:00→20:59)
--- NOTE | 2020-12-07 10:00 | PCM.PN.CARD ---
Subjectve: 80 year-old patient, with known history of CAD, history of CABG. Has underlying atrial fibrillation with rapid ventricular rate on this admission at presentation is generalized weakness of lower extremity And she been seen and followed also by the physical therapist Today her personnel monitor showed distal atrial fibrillation with rapid ventricular rate and she been on amiodarone and heparin She had no symptoms of chest pain I reviewed all her current medication as well as the telemetry and the current lab evaluation I discussed the cardiac care plan with the nursing staff the medical team. Oral anticoagulation Eliquis based on his creatinine clearance, continuation on amiodarone p.o. and further rate control with beta-tommy as needed and as tolerated to the blood pressure in addition KAREN inhibitor From cardiac standpoint recommendation would be to continue medical treatment and would recommend to follow-up with cardiology team as an outpatient for continuation of cardiac care. She is not a candidate for invasive cardiac evaluation at this point. Objective: Vital Signs Temp Pulse Resp BP Pulse Ox 97.9 F 117 H 26 H 112/74 93 12/07/20 04:00 12/07/20 09:04 12/07/20 06:00 12/07/20 09:04 12/07/20 07:10 Oxygen Flow Rate (L/min) 2 Oxygen Delivery Method Room Air Weight: 165 lb 5.547 oz Body Mass Index (BMI) 28.3 Intake and Output for Last 24 Hours 12/05/20 12/06/20 12/07/20 23:59 23:59 23:59 Intake Total 1083.58 / 1203.58 1019.48 / 1036.18 486.90 / 486.90 Output Total Balance 1082.58 / 1202.58 1019.48 / 1036.18 486.90 / 486.90 General: Oriented x 3 Cardiovascular: Irregular Rhythm Extremities: No Cyanosis, No Clubbing, No edema 12/06/20 16:25: APTT 72.3 H 12/06/20 22:55: APTT 62.2 H 12/07/20 05:16: WBC 6.8, RBC 3.55 L, Hgb 10.2 L, Hct 33.7 L, MCV 94.9, MCH 28.7, MCHC 30.3 L, Plt Count 298, MPV 9.2, Immature Gran % (Auto) 1.300 H, Neut % (Auto) 78.8 H, Lymph % (Auto) 9.4 L, [place] % (Auto) 9.5, Eos % (Auto) 0.7, Baso % (Auto) 0.3, Absolute Neuts (auto) 5.4, Nucleated RBC % 0.4 12/07/20 05:16: Sodium 136, Potassium 3.5, Chloride 105, Carbon Dioxide 21.0, Anion Gap 10, BUN 32 H, Creatinine 0.99, Est GFR (MDRD) Af Amer 70, Est GFR (MDRD) Non-Af 57 L, BUN/Creatinine Ratio 32.4 H, Glucose 183 H, Calcium 8.2 L 12/07/20 05:16: APTT 44.6 H Rhythm: 3 fibrillation with rapid ventricular response, infrequent PVCs EKG: Underlying atrial fibrillation ECHO: Medical Necessity - Tobacco Use Smoking Status: Former smoker Tobacco Use: Cigarettes
--- NOTE | 2020-12-07 10:37 | CASEMGMT ---
SW met with patient, introduced self and role at [facility]. SW asked patient what her thoughts were on going to a [facility] facility short term for rehab. She seemed frustrated and asked that SW call her son Allen. SW called patient's son, Allen per patient and his request. YOHAN explained to him that it is being recommended that patient go to a [facility] facility short term for rehab. SW told him patient is overwhelmed and is deferring to him. He said if she cannot walk then she cannot come home. He works and she is by herself for at least 12 hrs a day. YOHAN explained that there are no visitors at the nursing homes right now. YOHAN e-mailed patient's son a list of SNF providers including quality and resource use data and consistent with the patient?s preferred geographic region, medical needs, and insurance network. YOHAN asked him to pick at least 3 choices and get back to SW. The sooner the better. Plan: SNF. Awaiting patient and family's choices. Eugenia LAMA MSW
[2020-12-07] MEDS: APIXABAN 2.5 MG TABLET PO ×2 (12:21→21:50)
[2020-12-07 12:41] LABS: Bedside Glucose 221 mg/dL (70-110)
--- NOTE | 2020-12-07 12:58 | CASEMGMT ---
SW spoke with patient's son and he did not get the e-mails SW faxed him. SW went over the SNF's on the list and he would like [facility]. YOHAN told him there are still no visitors in TCU. He said he will be in to see patient tomorrow. YOHAN spoke with patient and let her know SW spoke with her son Allen. It was agreed that TCU would be best for her and they can take her at d/c. YOHAN told her their are no visitors in TCU, but her son said he would be in tomorrow to see her before she would go. She was not excited, but she agreed. Plan: d/c to [facility] under skilled level of care. Eugenai LAMA MSW
--- NOTE | 2020-12-07 13:25 | CASEMGMT ---
YOHAN called [facility] and left a message letting them know SW is faxing clinicals to get permission to proceed with pre-cert. YOHAN also faxed information. However, YOHAN is pretty sure they are waiving pre-certs. [place] [facility] Eugenia LAMA JOURNEYMAN PRESSMAN
--- NOTE | 2020-12-07 14:30 | PN_ITS ---
Patient Problems: Active and Suspected Problems (Last Reviewed 01/11/20 @ 10:32 by Falguni Kline) History of hypertension (Acute) History of bladder cancer (Acute) History of type 2 diabetes mellitus (Acute) History of hypercholesterolemia (Acute) New onset atrial fibrillation (Acute) Urinary tract infection (Acute) Prerenal azotemia (Acute) Hyperglycemia due to type 2 diabetes mellitus (Acute) Subjective: Is very concerned about her weakness in her legs. Patient states that when she was at home she would slide out of bed and if she would land on her feet she would be okay but if she did not she would lean on her buttocks and just be laying on the floor until her son came home. This happened several times. Patient wanted to stop all the cardiac medications as she is previously stopped them before. Vitals/I&O's: Vital Signs Temp Pulse Resp BP Pulse Ox 36.6 C 104 H 21 H 93/66 98 12/07/20 10:00 12/07/20 12:00 12/07/20 12:00 12/07/20 12:00 12/07/20 12:00 Oxygen Flow Rate (L/min) 97 Oxygen Delivery Method Room Air Weight: 75 kg Body Mass Index (BMI) 28.3 Intake and Output for Last 24 Hours 12/05/20 12/06/20 12/07/20 23:59 23:59 23:59 Intake Total 1083.58 / 1203.58 1019.48 / 1036.18 823.92 / 823.92 Output Total / Balance 1082.58 / 1202.58 1019.48 / 1036.18 823.92 / 823.92 General: Alert, No apparent distress HEENT: Atraumatic, Normocephalic Oral: Moist Mucosa, No Gingival or Mucosal Lesions/ Ulcerations Neck: No Nodes, Thyroid Normal Size and Texture Lungs: Clear to auscultation, Normal air movement, No rhonchi, No wheeze, No rales Cardiovascular: Irregular Rate, Tachycardic Abdomen: Bowel Sounds Present, Soft, Non Tender, Non-Distended, No Hepato- splenomegaly Extremities: No edema, No Calf Tenderness Psych/Mental Status: Normal Affect, Appropriate Microbiology Past 72 Hours 12/05/20 12:05 Urine, Catheterized Urine Culture - Final Culture exhibits no growth. 12/05/20 11:28 Blood Culture (Wb) - Left Wrist Blood Culture - Preliminary No growth in 48 hours. 12/05/20 11:25 Blood Culture (Wb) - Anticubital Right Blood Culture - Preliminary No growth in 48 hours. 12/05/20 12:00 Mucosa - Nose SARS-CoV-2 Antigen (Rapid) - Final Laboratory Results 12/06/20 16:25: APTT 72.3 H 12/06/20 17:20: POC Glucose 171 H 12/06/20 22:17: POC Glucose 210 H 12/06/20 22:55: APTT 62.2 H 12/07/20 05:16: WBC 6.8, RBC 3.55 L, Hgb 10.2 L, Hct 33.7 L, MCV 94.9, MCH 28.7, MCHC 30.3 L, RDW Std Deviation 52.6 H, RDW Coeff of Deborah 15.4 H, Plt Count 298, MPV 9.2, Immature Gran % (Auto) 1.300 H, Neut % (Auto) 78.8 H, Lymph % (Auto) 9.4 L, [place] % (Auto) 9.5, Eos % (Auto) 0.7, Baso % (Auto) 0.3, Absolute Neuts (auto) 5.4, Absolute Lymphs (auto) 0.64 L, Nucleated RBC % 0.4 12/07/20 05:16: Sodium 136, Potassium 3.5, Chloride 105, Carbon Dioxide 21.0, Anion Gap 10, BUN 32 H, Creatinine 0.99, Estim Creat Clear Calc 39.14, Est GFR (MDRD) Af Amer 70, Est GFR (MDRD) Non-Af 57 L, BUN/Creatinine Ratio 32.4 H, Glucose 183 H, Calcium 8.2 L 12/07/20 05:16: APTT 44.6 H 12/07/20 06:45: POC Glucose 200 H 12/07/20 12:19: POC Glucose 221 H Current Medications Acetaminophen (Acetaminophen 325 Mg Tablet) 650 mg PO Q6H PRN PRN PRN Reason: Pain Score 1-10/Temp > 100.7 F Last Admin: 12/05/20 22:23 Dose: 650 mg Documented by: Apixaban (Apixaban 2.5 Mg Tablet) 2.5 mg PO BID [facility] Last Admin: 12/07/20 12:21 Dose: 2.5 mg Documented by: Aspirin (Aspirin E.C. 81 Mg Tablet) [facility] Last Admin: 12/07/20 09:04 Dose: 81 mg Documented by: Atorvastatin Calcium (Atorvastatin Calcium 20 Mg Tablet) 20 mg PO QHS [facility] Last Admin: 12/06/20 22:23 Dose: 20 mg Documented by: Carvedilol (Carvedilol 6.25 Mg Tablet) [facility] Clopidogrel Bisulfate (Clopidogrel Bisulfate 75 Mg Tablet) 75 mg PO DAILY [facility] Last Admin: 12/07/20 09:05 Dose: 75 mg Documented by: Dextrose (Dextrose 50%-Water 25 Gm/50 Ml Disp.Syrin) 0 gm IV X1 PRN; Protocol PRN Reason: Hypoglycemia Glucagon (Glucagon 1 Mg/Ml Syringe) 1 mg IM .X1 PRN PRN Reason: Hypoglycemia Amiodarone HCl 360 mg/ (Dextrose) 200 mls @ 16.667 mls/hr CONT INF .Q12H [facility] Last Infusion: 12/07/20 12:00 Dose: 0.5 mg/min, 16.7 mls/hr Documented by: Insulin Human Lispro (Insulin Lispro 100 Unit/Ml Insuln.Pen) 0 unit SC [facility]; Protocol Last Admin: 12/07/20 12:21 Dose: 4 units Documented by: Lisinopril (Lisinopril 2.5 Mg Tablet) 2.5 mg PO DAILY [facility] Last Admin: 12/07/20 12:20 Dose: Not Given Documented by: Loperamide HCl (Loperamide 2 Mg Capsule) 2 mg PO Q4H PRN PRN PRN Reason: Diarrhea Last Admin: 12/06/20 15:57 Dose: 2 mg Documented by: Melatonin (Melatonin 3 Mg Tablet) 3 mg PO QHS PRN PRN PRN Reason: INSOMNIA Ondansetron HCl (Ondansetron 4 Mg/2 Ml Vial) 4 mg IV Q8H PRN PRN PRN Reason: NAUSEA/VOMITING Last Admin: 12/06/20 02:27 Dose: 4 mg Documented by: Sodium Chloride (0.9% Saline Lock 10 Ml Syringe) 10 - 40 ml IV UD PRN PRN Reason: SALINE FLUSH Last Admin: 12/06/20 06:47 Dose: 20 ml Documented by: STROKE Vital Signs/Narrative: Vital Signs Pulse Resp BP Pulse Ox 12/07/20 12:00 104 H 21 H 93/66 98 12/07/20 11:37 97 12/07/20 11:00 104 H 21 H 90/70 95 Medical Necessity - Tobacco Use Smoking Status: Former smoker Tobacco Use: Cigarettes Assessment/Plan All Active Problems (Last Reviewed 01/11/20 @ 10:32 by Falguni Kline) Encounter for education (Acute) History of hypertension (Acute) History of bladder cancer (Acute) History of type 2 diabetes mellitus (Acute) History of hypercholesterolemia (Acute) New onset atrial fibrillation (Acute) Urinary tract infection (Acute) Prerenal azotemia (Acute) Hyperglycemia due to type 2 diabetes mellitus (Acute) 1. afib with RVR * improved * Per patient's report she has what sounds like paroxysmal atrial fibrillation and that she was not can for anticoagulation given its intermittent nature. Again this was her report. * Will request records from [facility] (I'm not sure her last sorter is there or not, but it is the hospital in [place]) * She has not been on anticoagulation but from what I can gather there is no obvious contraindication to anticoagulation even with the patient's underlying malignancy. My discussion with cardiology recommends heparin drip for now over enoxaparin. * Echocardiogram shows an EF of 30% with pulmonary hypertension of 66mmHg right ventricular systolic pressure * Discussed with cardiology, Dr. Caro recommends continue with amiodarone drip, start her on carvedilol and discontinue the heparin drip and start her on apixaban. 2. Non-STEMI * May be type II, demand event related with A. fib * Aspirin * Patient is asymptomatic 3. Constipation * Resolved * Patient did receive lactulose, mineral oil which had dramatic results * Likely complicated by the patient's use of narcotics which have been held at present. * Will hold lactulose for now * Discussed with the patient that for regular bowel regimen, would recommend daily use of MiraLAX. Patient was using it as needed before and with hold if she is having more frequent bowel movements. 4. 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 * patient has and continues to decline treatment * Bout of care has evaluated the patient and will continue to follow along with the patient. GIGI Ham. 5. VTE prophylaxis: LMWH 6. Debility: Patient has been very weak for some period of time per her history endorses as much but is acutely aware of it now and wanting something to be immediately remedied. Discussed with patient that this is going to be prolonged process in regards to her gaining her strength back before she can go back home with the expectation of this requiring least 2 to 3 weeks to the point where she can go home safely. She had mentioned that she want to stop all the cardiac medications. I told her if she wants to get stronger and go to a half-way facility we will need to get her cardiac issues stabilized beforehand. Patient reluctantly agreed. Inpatient E&M: 19994 Subs Hosp L2
--- NOTE | 2020-12-07 15:30 | CASEMGMT ---
Late Entry SW did hear back from [facility] with [facility]. They are waiving pre-certs until the end of Nov. Plan: d/c to [facility] when ready. Eugenia LAMA MSW
[2020-12-07 17:56] LABS: Bedside Glucose 150 mg/dL (70-110)
[2020-12-07 21:25] LABS: Bedside Glucose 172 mg/dL (70-110)
[2020-12-07] MEDS: Atorvastatin Calcium 20 MG Tablet PO (21:50)
[2020-12-08] VITALS (20 sets, daily range): BP systolic 87–134; BP diastolic 54–84; PULSE 74–115; RESP 16–26; TEMP 36.3–36.6; O2SAT 94–99
--- NOTE | 2020-12-08 01:26 | NURSING ---
PATIENT STATES SHE HAS BEEN SWEATING AND HAVING NAUSEA FOR THREE DAYS, PATIENT IS REFUSING ANYTHING FOR NAUSEA. STATES SHE WILL DEAL WITH IT. RN OFFERED CRACKERS AND PATIENT WAS WILLING TO TRY THAT.
[2020-12-08 05:51] LABS: Bedside Glucose 172 mg/dL (70-110)
[2020-12-08] MEDS: APIXABAN 2.5 MG TABLET PO ×2 (08:49→21:02)
[2020-12-08] MEDS: Aspirin E.C. 81 MG Tablet PO (08:49)
[2020-12-08] MEDS: Clopidogrel Bisulfate 75 MG Tablet PO (08:49)
[2020-12-08] MEDS: Lisinopril 2.5 MG Tablet PO (08:49)
[2020-12-08] MEDS: Carvedilol 6.25 MG Tablet PO (08:49)
[2020-12-08] MEDS: Acetaminophen 325 MG Tablet 650 MG PO ×2 (08:51→21:01)
[2020-12-08] MEDS: 0.9% Saline Lock 10 ML Syringe IV (08:58)
[2020-12-08] MEDS: Ondansetron 4 MG/2 ML Vial IV (08:58)
[2020-12-08 11:11] LABS: Bedside Glucose 232 mg/dL (70-110)
--- NOTE | 2020-12-08 12:05 | PN_ITS ---
Patient Problems: Active and Suspected Problems (Last Reviewed 01/11/20 @ 10:32 by Falguni Kline) History of hypertension (Acute) History of bladder cancer (Acute) History of type 2 diabetes mellitus (Acute) History of hypercholesterolemia (Acute) New onset atrial fibrillation (Acute) Urinary tract infection (Acute) Prerenal azotemia (Acute) Hyperglycemia due to type 2 diabetes mellitus (Acute) Subjective: Had some nausea after pills yesterday. Later, she had some vomiting. Feeling well today. Vitals/I&O's: Vital Signs Temp Pulse Resp BP Pulse Ox 36.6 C 92 20 H 96/62 99 12/08/20 10:00 12/08/20 11:00 12/08/20 11:00 12/08/20 11:00 12/08/20 10:00 Oxygen Flow Rate (L/min) 97 Oxygen Delivery Method Room Air Weight: 75 kg Body Mass Index (BMI) 28.3 Intake and Output for Last 24 Hours 12/06/20 12/07/20 12/08/20 23:59 23:59 23:59 Intake Total 1019.48 / 1036.18 1362.82 / 1362.82 166.32 / 166.32 Output Total 250 / 250 Balance 1019.48 / 1036.18 1362.82 / 1362.82 -83.68 / -83.68 General: Alert, No apparent distress HEENT: Atraumatic, Normocephalic Neck: No Nodes, Thyroid Normal Size and Texture Lungs: Clear to auscultation, Normal air movement, No rhonchi, No wheeze, No rales Cardiovascular: Regular rate, Regular Rhythm, Normal S1, Normal S2, No murmurs Abdomen: Bowel Sounds Present, Soft, Non Tender, Non-Distended, No Hepato- splenomegaly Extremities: No edema, No Calf Tenderness Microbiology Past 72 Hours 12/05/20 12:05 Urine, Catheterized Urine Culture - Final Culture exhibits no growth. 12/05/20 11:28 Blood Culture (Wb) - Left Wrist Blood Culture - Preliminary No growth in 48 hours. 12/05/20 11:25 Blood Culture (Wb) - Anticubital Right Blood Culture - Preliminary No growth in 48 hours. 12/05/20 12:00 Mucosa - Nose SARS-CoV-2 Antigen (Rapid) - Final Laboratory Results 12/07/20 12:19: POC Glucose 221 H 12/07/20 17:14: POC Glucose 150 H 12/07/20 21:19: POC Glucose 172 H 12/08/20 05:46: POC Glucose 172 H 12/08/20 11:04: POC Glucose 232 H Current Medications Acetaminophen (Acetaminophen 325 Mg Tablet) 650 mg PO Q6H PRN PRN PRN Reason: Pain Score 1-10/Temp > 100.7 F Last Admin: 12/08/20 08:51 Dose: 650 mg Documented by: Apixaban (Apixaban 2.5 Mg Tablet) 2.5 mg PO BID [facility] Last Admin: 12/08/20 08:49 Dose: 2.5 mg Documented by: Aspirin (Aspirin E.C. 81 Mg Tablet) [facility] Last Admin: 12/08/20 08:49 Dose: 81 mg Documented by: Atorvastatin Calcium (Atorvastatin Calcium 20 Mg Tablet) 20 mg PO QHS [facility] Last Admin: 12/07/20 21:50 Dose: 20 mg Documented by: Carvedilol (Carvedilol 6.25 Mg Tablet) [facility] Last Admin: 12/08/20 08:49 Dose: 6.25 mg Documented by: Clopidogrel Bisulfate (Clopidogrel Bisulfate 75 Mg Tablet) 75 mg PO DAILY [facility] Last Admin: 12/08/20 08:49 Dose: 75 mg Documented by: Dextrose (Dextrose 50%-Water 25 Gm/50 Ml Disp.Syrin) 0 gm IV X1 PRN; Protocol PRN Reason: Hypoglycemia Glucagon (Glucagon 1 Mg/Ml Syringe) 1 mg IM .X1 PRN PRN Reason: Hypoglycemia Amiodarone HCl 360 mg/ (Dextrose) 200 mls @ 16.667 mls/hr CONT INF .Q12H [facility] Last Infusion: 12/08/20 11:30 Dose: Infused Documented by: Insulin Human Lispro (Insulin Lispro 100 Unit/Ml Insuln.Pen) 0 unit SC [facility]; Protocol Last Admin: 12/08/20 11:06 Dose: Not Given Documented by: Lisinopril (Lisinopril 2.5 Mg Tablet) 2.5 mg PO DAILY [facility] Last Admin: 12/08/20 08:49 Dose: 2.5 mg Documented by: Loperamide HCl (Loperamide 2 Mg Capsule) 2 mg PO Q4H PRN PRN PRN Reason: Diarrhea Last Admin: 12/06/20 15:57 Dose: 2 mg Documented by: Melatonin (Melatonin 3 Mg Tablet) 3 mg PO QHS PRN PRN PRN Reason: INSOMNIA Ondansetron HCl (Ondansetron 4 Mg/2 Ml Vial) 4 mg IV Q8H PRN PRN PRN Reason: NAUSEA/VOMITING Last Admin: 12/08/20 08:58 Dose: 4 mg Documented by: Sodium Chloride (0.9% Saline Lock 10 Ml Syringe) 10 - 40 ml IV UD PRN PRN Reason: SALINE FLUSH Last Admin: 12/08/20 08:58 Dose: 10 ml Documented by: STROKE Vital Signs/Narrative: Vital Signs Temp Pulse Resp BP Pulse Ox 12/08/20 11:00 92 20 H 96/62 12/08/20 10:59 85 12/08/20 10:00 36.6 C 101 H 22 H 118/84 H 99 12/08/20 09:00 111 H 26 H 109/79 98 Medical Necessity - Tobacco Use Smoking Status: Former smoker Tobacco Use: Cigarettes Assessment/Plan All Active Problems (Last Reviewed 01/11/20 @ 10:32 by Falguni Kline) Encounter for education (Acute) History of hypertension (Acute) History of bladder cancer (Acute) History of type 2 diabetes mellitus (Acute) History of hypercholesterolemia (Acute) New onset atrial fibrillation (Acute) Urinary tract infection (Acute) Prerenal azotemia (Acute) Hyperglycemia due to type 2 diabetes mellitus (Acute) 1. afib with RVR * improved * Per patient's report she has what sounds like paroxysmal atrial fibrillation and that she was not can for anticoagulation given its intermittent nature. Again this was her report. * Will request records from [facility] (I'm not sure her paper winder is there or not, but it is the hospital in [place]) * She has not been on anticoagulation but from what I can gather there is no obvious contraindication to anticoagulation even with the patient's underlying malignancy. My discussion with cardiology recommends heparin drip for now over enoxaparin. * Echocardiogram shows an EF of 30% with pulmonary hypertension of 66mmHg right ventricular systolic pressure * Discussed with cardiology, Dr. Caro who will further adjust medications 2. Non-STEMI * May be type II, demand event related with A. fib * Aspirin * Patient is asymptomatic 3. Constipation * Resolved * Patient did receive lactulose, mineral oil which had dramatic results * Likely complicated by the patient's use of narcotics which have been held at present. * Will hold lactulose for now * Discussed with the patient that for regular bowel regimen, would recommend daily use of MiraLAX. Patient was using it as needed before and with hold if she is having more frequent bowel movements. * Start miralax 4. 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 * patient has and continues to decline treatment * Bout of care has evaluated the patient and will continue to follow along with the patient. GIGI Ham. 5. VTE prophylaxis: LMWH 6. Debility: Patient has been very weak for some period of time per her history endorses as much but is acutely aware of it now and wanting something to be immediately remedied. Discussed with patient that this is going to be prolonged process in regards to her gaining her strength back before she can go back home with the expectation of this requiring least 2 to 3 weeks to the point where she can go home safely. She had mentioned that she want to stop all the cardiac medications. I told her if she wants to get stronger and go to a [facility] facility we will need to get her cardiac issues stabilized beforehand. Patient reluctantly agreed. 7. Nausea and vomiting Unclear etiology Supportive mgmt at this time. Inpatient E&M: 52769 Subs Hosp L2
[2020-12-08] MEDS: Amiodarone 200 MG Tablet 400 MG PO ×2 (13:57→21:02)
--- NOTE | 2020-12-08 14:11 | PCM.PN.CARD ---
Objective: Vital Signs Temp Pulse Resp BP Pulse Ox 97.8 F 92 20 H 96/62 99 12/08/20 10:00 12/08/20 11:00 12/08/20 11:00 12/08/20 11:00 12/08/20 10:00 Oxygen Flow Rate (L/min) 97 Oxygen Delivery Method Room Air Weight: 165 lb 5.547 oz Body Mass Index (BMI) 28.3 Intake and Output for Last 24 Hours 12/06/20 12/07/20 12/08/20 23:59 23:59 23:59 Intake Total 1019.48 / 1036.18 1362.82 / 1362.82 286.32 / 286.32 Output Total 250 / 250 Balance 1019.48 / 1036.18 1362.82 / 1362.82 36.32 / 36.32 Rhythm: Atrial fibrillation with still rapid ventricular rate EKG: A. fib ECHO: Severe diastolic dysfunction Detailed report of the echocardiogram enclosed Medical Necessity - Tobacco Use Smoking Status: Former smoker Tobacco Use: Cigarettes Assessment/Plan 80-year-old patient with extensive cardiac history, history of CAD, CABG, severe diastolic dysfunction She has underlying atrial fibrillation, no symptoms of chest pain On production analyst cardiac rhythm is A. fib with controlled ventricular rate I discussed the cardiac medication in detail with the nursing staff 1. We will discontinue IV amiodarone and will replace with p.o. amiodarone 400 mg twice daily 2. Increase the dose of the carvedilol to 12.5 mg twice a day as tolerated by the blood pressure 3. We will continue on lisinopril 4. We will discontinue the Plavix due to risk of bleeding and will continue low-dose aspirin in addition to Eliquis 2.5 mg twice daily. We will continue to monitor and follow-up clinically during this admission.
[2020-12-08] MEDS: Insulin Lispro 100 UNIT/ML INSULN.PEN SC (16:16)
[2020-12-08] MEDS: Carvedilol 12.5 MG Tablet PO (16:18)
[2020-12-08 16:21] LABS: Bedside Glucose 264 mg/dL (70-110)
[2020-12-08] MEDS: Atorvastatin Calcium 20 MG Tablet PO (21:01)
[2020-12-08] MEDS: MELATONIN 3 MG TABLET PO (21:02)
[2020-12-08 21:10] LABS: Bedside Glucose 141 mg/dL (70-110)
[2020-12-09] VITALS (9 sets, daily range): BP systolic 86–100; BP diastolic 51–57; PULSE 77–98; RESP 16–18; TEMP 36.6–36.9; O2SAT 94–98
[2020-12-09] MEDS: Acetaminophen 325 MG Tablet 650 MG PO ×3 (05:52→22:22)
[2020-12-09 06:27] LABS: Anion Gap 11 (5-15); BUN 40 mg/dL (7-18); BUN/Creat Ratio 36.4 RATIO (10-20); Calcium,Total 8.2 mg/dL (8.5-10.1); Chloride 103 mmol/L (98-107); EST Glomerular Filtration Rate 51 mL/min (>60); Est Glom Filt Rate - Afr Amer 61 mL/min (>60); Estimated Creatinine Clearance 35.22 ml/min; Glucose 134 mg/dL (74-106); Potassium 4.1 mmol/L (3.5-5.1); Sodium Level 132 mmol/L (136-145)
[2020-12-09 06:51] LABS: Bedside Glucose 125 mg/dL (70-110)
[2020-12-09] MEDS: Carvedilol 12.5 MG Tablet PO ×2 (09:36→16:17)
[2020-12-09] MEDS: Amiodarone 200 MG Tablet 400 MG PO ×2 (09:36→22:21)
[2020-12-09] MEDS: Aspirin E.C. 81 MG Tablet PO (09:36)
[2020-12-09] MEDS: Polyethylene Glycol 3350 17 GM PACKET PO (09:36)
[2020-12-09] MEDS: APIXABAN 2.5 MG TABLET PO ×2 (09:36→22:22)
--- NOTE | 2020-12-09 09:53 | PN.CARD_ITS ---
Objective: Vital Signs Temp Pulse Resp BP Pulse Ox 98.5 F 77 18 95/51 L 94 12/09/20 09:35 12/09/20 09:35 12/09/20 09:35 12/09/20 09:35 12/09/20 09:35 Oxygen Flow Rate (L/min) 97 Oxygen Delivery Method Room Air Weight: 165 lb 5.547 oz Body Mass Index (BMI) 28.3 Intake and Output for Last 24 Hours 12/07/20 12/08/20 12/09/20 23:59 23:59 23:59 Intake Total 1362.82 / 1362.82 766.32 / 916.32 200 / 200 Output Total 250 / 400 200 / 200 Balance 1362.82 / 1362.82 516.32 / 516.32 0 / 0 General: Awake, Alert HEENT: PERRL, EOMI, Sclera Non Icteric Neck: Supple, Good ROM, No Lymph Node Enlargement Lungs: Clear to auscultation Cardiovascular: Regular Rhythm, Irregular Rhythm, Normal S1, Normal S2, No Murmurs, No Rubs, No Gallops Vascular: No Carotid Bruits, Normal Femoral Pulses, Normal Radial Pulses, Normal Dorsalis Pedal Pulse, Normal Posterior Tibial Pulses Abdomen: Bowel Sounds Present, Soft, Non Tender, No HSM, No Organomegaly Extremities: No Clubbing, No edema Neurological: No Focal Motor or Sensory Deficit 12/09/20 05:12: Sodium 132 L, Potassium 4.1, Chloride 103, Carbon Dioxide 18.0 L , Anion Gap 11, BUN 40 H, Creatinine 1.10 H, Est GFR (MDRD) Af Amer 61, Est GFR (MDRD) Non-Af 51 L, BUN/Creatinine Ratio 36.4 H, Glucose 134 H, Calcium 8.2 L Rhythm: A. fib with RVR and infrequent PVCs EKG: Underlying atrial fibrillation ECHO: Severe LV systolic dysfunction with ejection fraction of 30% Mild to moderate MR Mild to moderate TR No pericardial effusion. Medical Necessity - Tobacco Use Smoking Status: Former smoker Tobacco Use: Cigarettes Assessment/Plan 80-year-old patient with known history of CAD, has coronary artery atherosclerosis with history of CABG In this admission patient has evidence of A. fib with RVR on desk monitor She does not have any active chest pain and she had a very mild elevation of cardiac biomarkers, high sensitive troponin I. Today noted her desk monitor showed a still underlying atrial fibrillation with better controlled ventricular rate on the current treatment. Patient symptoms mainly weakness of lower extremity and she been a schedule for physical therapy and rehab. Echocardiographic evaluation in this admission revealed severe LV systolic dysfunction ejection fraction of around 30%, mild to moderate MR, mild to moderate TR I reviewed the current medication which include anticoagulation with Eliquis low-dose 2.5 g twice a day, in addition to low-dose aspirin discontinue the Plavix And will continue on amiodarone and carvedilol in addition to lisinopril There are high risk patient with severe ischemic cardiomyopathy as described and recommendation at this point is medical therapy With recommend to follow-up with cardiology for continuation of cardiac care plan and medical management. Need to discuss further assessment with possible nuclear stress test and need for further evaluation by cardiac catheterization and discussion of ICD/BiV pacer which can be set up as outpatient. For now while hospitalized recommendation is medical therapy.
[2020-12-09] MEDS: Insulin Lispro 100 UNIT/ML INSULN.PEN SC ×2 (11:15→16:16)
[2020-12-09 11:21] LABS: Bedside Glucose 186 mg/dL (70-110)
--- NOTE | 2020-12-09 14:17 | PN_ITS ---
Patient Problems: Active and Suspected Problems (Last Reviewed 01/11/20 @ 10:32 by Falguni Kline) History of hypertension (Acute) History of bladder cancer (Acute) History of type 2 diabetes mellitus (Acute) History of hypercholesterolemia (Acute) New onset atrial fibrillation (Acute) Urinary tract infection (Acute) Prerenal azotemia (Acute) Hyperglycemia due to type 2 diabetes mellitus (Acute) Subjective: still with rectal pain. limited mobility due to pain. Vitals/I&O's: Vital Signs Temp Pulse Resp BP Pulse Ox 36.9 C 77 18 95/51 L 94 12/09/20 09:35 12/09/20 09:35 12/09/20 09:35 12/09/20 09:35 12/09/20 09:35 Oxygen Flow Rate (L/min) 97 Oxygen Delivery Method Room Air Weight: 75 kg Body Mass Index (BMI) 28.3 Intake and Output for Last 24 Hours 12/07/20 12/08/20 12/09/20 23:59 23:59 23:59 Intake Total 1362.82 / 1362.82 766.32 / 916.32 440 / 440 Output Total 250 / 400 450 / 450 Balance 1362.82 / 1362.82 516.32 / 516.32 -10 / -10 General: Alert, No apparent distress HEENT: Atraumatic, Normocephalic Oral: Moist Mucosa, No Gingival or Mucosal Lesions/ Ulcerations Neck: No Nodes, Thyroid Normal Size and Texture Lungs: Clear to auscultation, Normal air movement, No rhonchi, No wheeze Cardiovascular: Regular rate, Regular Rhythm, Normal S1, Normal S2, No murmurs Abdomen: Bowel Sounds Present, Soft, Non Tender, Non-Distended, No Hepato- splenomegaly, - - no external hemorrhoids, no anal fissure. Extremities: No edema, No Calf Tenderness Psych/Mental Status: Appropriate, Flat Affect Microbiology Past 72 Hours 12/05/20 12:05 Urine, Catheterized Urine Culture - Final Culture exhibits no growth. 12/05/20 11:28 Blood Culture (Wb) - Left Wrist Blood Culture - Preliminary No growth in 48 hours. 12/05/20 11:25 Blood Culture (Wb) - Anticubital Right Blood Culture - Preliminary No growth in 48 hours. Laboratory Results 12/08/20 16:14: POC Glucose 264 H 12/08/20 20:56: POC Glucose 141 H 12/09/20 05:12: Sodium 132 L, Potassium 4.1, Chloride 103, Carbon Dioxide 18.0 L , Anion Gap 11, BUN 40 H, Creatinine 1.10 H, Estim Creat Clear Calc 35.22, Est GFR (MDRD) Af Amer 61, Est GFR (MDRD) Non-Af 51 L, BUN/Creatinine Ratio 36.4 H, Glucose 134 H, Calcium 8.2 L 12/09/20 06:45: POC Glucose 125 H 12/09/20 11:14: POC Glucose 186 H Current Medications Acetaminophen (Acetaminophen 325 Mg Tablet) 650 mg PO Q6H PRN PRN PRN Reason: Pain Score 1-10/Temp > 100.7 F Last Admin: 12/09/20 05:52 Dose: 650 mg Documented by: Amiodarone HCl (Amiodarone 200 Mg Tablet) 400 mg PO BID [facility] Last Admin: 12/09/20 09:36 Dose: 400 mg Documented by: Apixaban (Apixaban 2.5 Mg Tablet) 2.5 mg PO BID [facility] Last Admin: 12/09/20 09:36 Dose: 2.5 mg Documented by: Aspirin (Aspirin E.C. 81 Mg Tablet) [facility] Last Admin: 12/09/20 09:36 Dose: 81 mg Documented by: Atorvastatin Calcium (Atorvastatin Calcium 20 Mg Tablet) 20 mg PO QHS [facility] Last Admin: 12/08/20 21:01 Dose: 20 mg Documented by: Bisacodyl (Bisacodyl 5 Mg Tablet) 5 mg PO DAILY PRN PRN Reason: Constipation Carvedilol (Carvedilol 12.5 Mg Tablet) [facility] Last Admin: 12/09/20 09:36 Dose: 12.5 mg Documented by: Dextrose (Dextrose 50%-Water 25 Gm/50 Ml Disp.Syrin) 0 gm IV X1 PRN; Protocol PRN Reason: Hypoglycemia Glucagon (Glucagon 1 Mg/Ml Syringe) 1 mg IM .X1 PRN PRN Reason: Hypoglycemia Insulin Human Lispro (Insulin Lispro 100 Unit/Ml Insuln.Pen) 0 unit [facility]; Protocol Last Admin: 12/09/20 11:15 Dose: 2 units Documented by: Lisinopril (Lisinopril 2.5 Mg Tablet) 2.5 mg PO DAILY [facility] Last Admin: 12/09/20 09:36 Dose: Not Given Documented by: Melatonin (Melatonin 3 Mg Tablet) 3 mg PO QHS PRN PRN PRN Reason: INSOMNIA Last Admin: 12/08/20 21:02 Dose: 3 mg Documented by: Ondansetron HCl (Ondansetron 4 Mg/2 Ml Vial) 4 mg IV Q8H PRN PRN PRN Reason: NAUSEA/VOMITING Last Admin: 12/08/20 08:58 Dose: 4 mg Documented by: Polyethylene Glycol (Polyethylene Glycol 3350 17 Gm Packet) 17 gm PO DAILY [facility] Last Admin: 12/09/20 09:36 Dose: 17 gm Documented by: Sodium Chloride (0.9% Saline Lock 10 Ml Syringe) 10 - 40 ml IV UD PRN PRN Reason: SALINE FLUSH Last Admin: 12/08/20 08:58 Dose: 10 ml Documented by: Medical Necessity - Tobacco Use Smoking Status: Former smoker Tobacco Use: Cigarettes Assessment/Plan All Active Problems (Last Reviewed 01/11/20 @ 10:32 by Falguni Kline) Encounter for education (Acute) History of hypertension (Acute) History of bladder cancer (Acute) History of type 2 diabetes mellitus (Acute) History of hypercholesterolemia (Acute) New onset atrial fibrillation (Acute) Urinary tract infection (Acute) Prerenal azotemia (Acute) Hyperglycemia due to type 2 diabetes mellitus (Acute) 1. afib with RVR * improved * Per patient's report she has what sounds like paroxysmal atrial fibrillation and that she was not can for anticoagulation given its intermittent nature. Again this was her report. * She has not been on anticoagulation but from what I can gather there is no o bvious contraindication to anticoagulation even with the patient's underlying malignancy. My discussion with cardiology recommends heparin drip for now over enoxaparin. * Echocardiogram shows an EF of 30% with pulmonary hypertension of 66mmHg righ * Cardiology following * amio 400 BID, carvedilol 12.5 BID * anticoagulated with apixaban 2. Non-STEMI * May be type II, demand event related with A. fib * Aspirin * Patient is asymptomatic 3. Constipation * Resolved * Patient did receive lactulose, mineral oil which had dramatic results * had rectal pain post large BM, no obvious rectal lesion/hemorrhoid * supportive mgmt 4. 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 * patient has and continues to decline treatment * Bout of care has evaluated the patient and will continue to follow along with the patient. GIGI Ham. 5. VTE prophylaxis: LMWH 6. Debility: Patient has been very weak for some period of time per her history endorses as much but is acutely aware of it now and wanting something to be immediately remedied. Discussed with patient that this is going to be prolonged process in regards to her gaining her strength back before she can go back home with the expectation of this requiring least 2 to 3 weeks to the point where she can go home safely. She had mentioned that she want to stop all the cardiac medications. I told her if she wants to get stronger and go to a nursing home facility we will need to get her cardiac issues stabilized beforehand. Patient reluctantly agreed. 7. Nausea and vomiting Unclear etiology Supportive mgmt at this time. Greater than 50 minutes of which greater than for percent of time was discussed with the patient about the need for therapy and continue to work with therapy. Also discussed with the patient's son, Allen, that she just requires reassurance and encouragement to engage with therapy. He states that she has had issues with with motivation at home and he is not able to adequately care for her. She ultimate plan is for the patient go to nursing home facility once precertification has been obtained. Inpatient E&M: [id number] [facility] L3
[2020-12-09] MEDS: 0.9% Saline Lock 10 ML Syringe IV (16:17)
[2020-12-09 16:35] LABS: Bedside Glucose 154 mg/dL (70-110)
[2020-12-09] MEDS: Atorvastatin Calcium 20 MG Tablet PO (22:21)
[2020-12-09] MEDS: MELATONIN 3 MG TABLET PO (22:22)
[2020-12-09 22:31] LABS: Bedside Glucose 180 mg/dL (70-110)
[2020-12-10 03:00] VITALS: PULSE 100
[2020-12-10 03:03] VITALS: BP 98/60; PULSE 77; RESP 18; TEMP 36.7; O2SAT 98
[2020-12-10] MEDS: Acetaminophen 325 MG Tablet 650 MG PO (06:59)
[2020-12-10 07:00] VITALS: PULSE 102
[2020-12-10 07:00] LABS: Bedside Glucose 150 mg/dL (70-110)
--- NOTE | 2020-12-10 08:34 | PN.CARD_ITS ---
Objective: Vital Signs Temp Pulse Resp BP Pulse Ox 98.0 F 102 H 18 98/60 98 12/10/20 03:03 12/10/20 07:00 12/10/20 03:03 12/10/20 03:03 12/10/20 03:03 Oxygen Flow Rate (L/min) 97 Oxygen Delivery Method Room Air Weight: 165 lb 5.547 oz Body Mass Index (BMI) 28.3 Intake and Output for Last 24 Hours 12/08/20 12/09/20 12/10/20 23:59 23:59 23:59 Intake Total 766.32 / 916.32 1090 / 1090 50 / 50 Output Total 250 / 400 625 / 625 225 / 225 Balance 516.32 / 516.32 465 / 465 -175 / -175 General: Awake, Alert, Oriented x 3 HEENT: PERRL, EOMI, Sclera Non Icteric Neck: Supple, Good ROM, No Lymph Node Enlargement Lungs: Clear to auscultation Cardiovascular: Irregular Rhythm, Normal S1, Normal S2, No Murmurs, No Rubs, No Gallops Vascular: No Carotid Bruits, Normal Femoral Pulses, Normal Radial Pulses, Normal Dorsalis Pedal Pulse, Normal Posterior Tibial Pulses Abdomen: Bowel Sounds Present, Soft, Non Tender, No HSM, No Organomegaly Extremities: No Cyanosis, No Clubbing, No edema Musculoskeletal: No Erythema Lymphatic: No Lymph Node Enlargement Neurological: No Focal Motor or Sensory Deficit Psych/Mental Status: Appropriate Rhythm: EKG: ECHO: Stress Test: Cardiac Cath: PCI: CT Surgery: Holter monitor: EPS: PPM: CXR: Chest CT Scan: Medical Necessity - Tobacco Use Smoking Status: Former smoker Tobacco Use: Cigarettes Assessment/Plan 1. afib with RVR * improved * Ventricular response rate appears to be improved at this time. * Plan will be to continue with anticoagulation, beta-tommy, and amiodarone. * Left ventricular ejection fraction was estimated to be 30% * 2. Non-STEMI * May be type II, demand event related with A. fib * Aspirin * Patient is asymptomatic * 3. Left ventricular systolic dysfunction * Patient has significant left ventricular systolic dysfunction. We will try and optimize medical therapy. It appears this is ischemic cardiomyopathy. If after optimization of medical therapy and attempt at cardioversion the patient still has reduced ejection fraction then may need to consider primary ICD implantation. * Will try and obtain records from [facility] for office visit. * 4. Coronary artery disease status post coronary bypass surgery * No evidence of angina at this particular time would continue current medical therapy. * * It appears that the patient needs transitional care unit for further optimization of medical therapy. * Thank you for allowing me to participate in the care of your patient. Please don't hesitate to call if any issues arise.
[2020-12-10 09:00] VITALS: BP 95/66; PULSE 54; RESP 18; TEMP 36.6; O2SAT 100
[2020-12-10] MEDS: Aspirin E.C. 81 MG Tablet PO (09:18)
[2020-12-10] MEDS: APIXABAN 2.5 MG TABLET PO (09:18)
[2020-12-10] MEDS: Carvedilol 12.5 MG Tablet PO (09:18)
[2020-12-10] MEDS: Lisinopril 2.5 MG Tablet PO (09:18)
[2020-12-10] MEDS: Polyethylene Glycol 3350 17 GM PACKET PO (09:18)
--- NOTE | 2020-12-10 09:45 | PCM.TXEXTCAR ---
- Diet 12/07/20 14:57 Diet: Regular - No Added Salt Food consistency:: Regular Liquid Consistency:: Regular/Thin Is pt able to select menu?: Yes Diet Comments: not to exceed 5 servings CHO at meals - Routine Orders/Code Status Enema Type: Fleetz Enema Frequency: Daily PRN Suppository Type: Dulcolax 10mg Suppository Frequency: Daily PRN O2 Frequency: PRN Keep PO Greater than or Equal to (%): 90 Code Status: DNRCC-A - Therapies Weight Bearing: Weight bearing as tolerated Physical Therapy: Eval and Treat Occupational Therapy: Eval and Treat - Allergies/Procedures Done in Hospital Allergies/Adverse Reactions: Allergies latex Allergy (Verified 12/02/20 11:46) Hives sulfur dioxide Allergy (Verified 12/02/20 11:46) Hives adhesive tape Adverse Reaction (Verified 12/02/20 11:46) Rash Procedures: None - Type of Care/Length of Stay Estimated LOS: Convalescent Care Less Than 30 days Type of Care Needed: Skilled Rehab Potential: Fair Prognosis: Fair - Additional Orders/Day of Discharge Day of Discharge: 12/10/20 - Dietary and Speech Recommendations Dietitian Recommendations/Changes: Will liberalize diet to regular, no added salt d/t malnutrition. Will note on diet order that pt is not to exceed 5 servings of CHO per meal to prevent hyperglycemia. - Follow Up Care Primary Care Physician: Tano Cornejo MD [Primary Care Provider] - Please follow up with your Primary Care Physician in: 1-2 weeks Please Follow Up With: Aaron Souza MD When: 2-3 weeks
--- NOTE | 2020-12-10 09:59 | CASEMGMT ---
Patient is ready for discharge to TCU today. YOHAN copied orders. SW called patient's son and let him know that patient will be going to TCU today. SW asked if he would be visiting before she goes since there are no visitors in TCU. He said he saw her yesterday. Plan: d/c to [facility] TCU under skilled level of care. Eugenia CHUNG
--- NOTE | 2020-12-10 10:30 | PHA.DC.MR ---
Pharmacy Service has performed discharge medication reconciliation for this patient. The patient's discharge medication list was reviewed for discrepancies and discrepancies were resolved. Home Medications aspirin 81 mg tablet,delayed release 81 mg PO DAILY 07/29/19 atorvastatin 20 mg tablet 20 mg PO DAILY 07/29/19 lisinopril 2.5 mg tablet 2.5 mg PO DAILY 07/29/19 metformin 500 mg tablet 500 mg PO BID 07/29/19 Oxycodone HCl/Acetaminophen [Percocet 5-325] 1 tab PO Q6H PRN PRN 5 Days #20 tab 12/02/20 Acetaminophen [Tylenol Arthritis] 1,300 mg PO TID PRN PRN 12/05/20 Amiodarone HCl [Cordarone] 200 mg PO BIDCM #60 tab 12/10/20 Apixaban [Eliquis] 2.5 mg PO BID #60 tab 12/10/20 Carvedilol [Coreg (Beta Blanca)] 12.5 mg PO BIDCM #60 tab 12/10/20
[2020-12-10 11:00] VITALS: PULSE 105
--- NOTE | 2020-12-10 11:09 | NURSING ---
report called to nitin VALDES
[2020-12-10] MEDS: Insulin Lispro 100 UNIT/ML INSULN.PEN SC (11:33)
[2020-12-10] MEDS: Amiodarone 200 MG Tablet PO (11:34)
[2020-12-10 11:40] LABS: Bedside Glucose 308 mg/dL (70-110)
[2020-12-10 13:13] VITALS: BP 95/61; PULSE 96; RESP 18; TEMP 36.8; O2SAT 96
--- NOTE | 2020-12-10 17:05 | PCM.DC.SUM ---
Discharge Date and Diagnosis - Problem List Patient Problems: Active and Suspected Problems (Last Reviewed 01/11/20 @ 10:32 by Falguni Kline) History of hypertension (Acute) History of bladder cancer (Acute) History of type 2 diabetes mellitus (Acute) History of hypercholesterolemia (Acute) New onset atrial fibrillation (Acute) Urinary tract infection (Acute) Prerenal azotemia (Acute) Hyperglycemia due to type 2 diabetes mellitus (Acute) Date of Admission: 12/07/20 Date of Discharge: 12/10/20 - Primary Discharge Diagnosis Acute Problems: Active Problems (Last Reviewed 01/11/20 @ 10:32 by Falguni Kline) History of hypertension (Acute) History of bladder cancer (Acute) History of type 2 diabetes mellitus (Acute) History of hypercholesterolemia (Acute) New onset atrial fibrillation (Acute) Urinary tract infection (Acute) Prerenal azotemia (Acute) Hyperglycemia due to type 2 diabetes mellitus (Acute) - Secondary Discharge Diagnosis Chronic Problems: Chronic Problems (Last Reviewed 01/11/20 @ 10:32 by Falguni Kline) Endometrial cancer, FIGO stage IIIA (Chronic) Hospital Course and Treatment Imaging Results: Diagnostic Data Chest X-Ray 12/05/20 12:20 IMPRESSION: Cardiomegaly. Electronically Signed: Phoenix Griffin MD at 12:49 EST , Service support , cardiology Operations: None Procedures: 2-D Echocardiogram Summary of Care Provided: The patient is a 80 year old F with a past medical history as outlined was admitted through the ED on 12/05/2020 with a complaint of constipation for 6 days prior to admission as well as abdominal pain. Patient has a history of endometrial cancer and had been refusing chemotherapy but had had surgery and radiation. On admission, patient went into A. fib which she says she had a history of and had been following up with a lead systems engineer in [facility] but had not been taking any of her medications with the last several days which she said accounted for why her heart rate was elevated. She also admitted to shortness of breath. Patient was admitted and managed for A. fib with RVR and constipation. She was put on stool softeners and laxatives. Her home metoprolol dose was resumed, though this was later switched to carvedilol. Cardiology was consulted. She was started on IV amiodarone and also started on heparin drip. She cannot tolerate Cardizem. Heart rate gradually improved. 2D echo done showed EF of 30% and unable to assess diastolic dysfunction and moderate left ventricular systolic dysfunction with normal left ventricular size. RVSP was 69 mmHg. Patient's heart rate improved and she was switched to p.o. amiodarone. She remained stable and she was discharged to the transitional care unit on 12/10/2020. She is to follow-up with her primary care doctor and with cardiology. She was discharged on p.o. aspirin, Eliquis as well as started on amiodarone and carvedilol. She is to follow up with her PCP and lead systems engineer. Patient was seen and examined prior to discharge. She still complains of rectal pain which is chronic. Review of symptoms otherwise negative. She still remains weak. Labs and vitals reviewed. Medication reviewed and reconciled. O/E: Vital Signs Temp Pulse Resp BP Pulse Ox 98.3 F 96 18 95/61 96 12/10/20 13:13 12/10/20 13:13 12/10/20 13:13 12/10/20 13:13 12/10/20 13:13 General: Alert, No apparent distress HEENT: Atraumatic, Normocephalic Oral: Moist Mucosa, No Gingival or Mucosal Lesions/ Ulcerations Neck: No Nodes, Thyroid Normal Size and Texture Lungs: Clear to auscultation, Normal air movement, No rhonchi, No wheeze Cardiovascular: Regular rate, Regular Rhythm, Normal S1, Normal S2, No murmurs Abdomen: Bowel Sounds Present, Soft, Non Tender, Non-Distended, No Hepato-splenomegaly Extremities: No edema, No Calf Tenderness Psych/Mental Status: Appropriate, Flat Affect Plan is for discharge to the transitional care unit today Patient Problems: Active and Suspected Problems (Last Reviewed 01/11/20 @ 10:32 by Falguni Kline) History of hypertension (Acute) History of bladder cancer (Acute) History of type 2 diabetes mellitus (Acute) History of hypercholesterolemia (Acute) New onset atrial fibrillation (Acute) Urinary tract infection (Acute) Prerenal azotemia (Acute) Hyperglycemia due to type 2 diabetes mellitus (Acute) - Physical Exam Vitals/I&O's: Vital Signs Temp Pulse Resp BP Pulse Ox 98.3 F 96 18 95/61 96 12/10/20 13:13 12/10/20 13:13 12/10/20 13:13 12/10/20 13:13 12/10/20 13:13 Oxygen Flow Rate (L/min) 97 Oxygen Delivery Method Room Air Weight: 165 lb 5.547 oz Body Mass Index (BMI) 28.3 Intake and Output for Last 24 Hours 12/08/20 12/09/20 12/10/20 23:59 23:59 23:59 Intake Total 766.32 / 916.32 1090 / 1090 350 / 350 Output Total 250 / 400 625 / 625 425 / 425 Balance 516.32 / 516.32 465 / 465 -75 / -75 Microbiology Past 72 Hours 12/05/20 11:28 Blood Culture (Wb) - Left Wrist Blood Culture - Final No growth in 5 days. 12/05/20 11:25 Blood Culture (Wb) - Anticubital Right Blood Culture - Final No growth in 5 days. Laboratory Results 12/09/20 22:20: POC Glucose 180 H 12/10/20 06:56: POC Glucose 150 H 12/10/20 11:33: POC Glucose 308 H Discharge Diet: Low fat/ Low Cholesterol Discharge Activity: Return to Normal Activity Weight Bearing Status: Weight bearing as tolerated Home Medications: Medications to take at Discharge aspirin 81 mg tablet,delayed release 81 mg PO DAILY 07/29/19 atorvastatin 20 mg tablet 20 mg PO DAILY 07/29/19 lisinopril 2.5 mg tablet 2.5 mg PO DAILY 07/29/19 metformin 500 mg tablet 500 mg PO BID 07/29/19 Oxycodone HCl/Acetaminophen [Percocet 5-325] 1 tab PO Q6H PRN PRN 5 Days #20 tab 12/02/20 Acetaminophen [Tylenol Arthritis] 1,300 mg PO TID PRN PRN 12/05/20 Amiodarone HCl [Cordarone] 200 mg PO BIDCM 12/10/20 Apixaban [Eliquis] 2.5 mg PO BID 12/10/20 Carvedilol [Coreg (Beta Blanca)] 12.5 mg PO BIDCM 12/10/20 Primary Care Physician: Tano Cornejo MD [Primary Care Provider] - Please follow up with your Primary Care Physician in: 1-2 weeks Please Follow Up With: Aaron Souza MD When: 2-3 weeks Disposition: Home Minutes spent on discharge:: 45 Patient Condition:: Stable Medical Necessity - Tobacco Use Smoking Status: Former smoker Tobacco Use: Cigarettes Meaningful Use Info Meaningful Use Diagnoses (Choose all that apply): AMI - AMI/Post PCI/Angioplasty Aspirin given w/in 24hrs of arrival?: Yes ASA at discharge?: Yes Antiplatelet Therapy at Discharge:: No Reason Antiplatelet Therapy not ordered:: on eliquis, increased bleeding risk Statins at discharge?: Yes Bernardo/ARB at discharge?: Yes Beta Blanca at discharge?: Yes Done w/ Acute IL measure.: Yes Inpatient E&M: [id number] Disch Hosp
== END 2020-12-10 13:32 | disposition skilled nursing facility (03) | DRG 282 ==
LOC: ED 12:49 → PCU 14:19
PROVIDERS: Admitting Provider Family Medicine; Emergency Provider Emergency Medicine; PCP Family Medicine; Visit Provider Student in an Organized Health Care Education/Training Program
DX: I48.20 Chronic atrial fibrillation, unspecified (principal); I21.A1 Myocardial infarction type 2; K59.03 Drug induced constipation; C54.1 Malignant neoplasm of endometrium; E66.9 Obesity, unspecified; E11.65 Type 2 diabetes mellitus with hyperglycemia; E78.00 Pure hypercholesterolemia, unspecified; I10 Essential (primary) hypertension; Z85.51 Personal history of malignant neoplasm of bladder; Z91.14 Patient's other noncompliance with medication regimen; Z79.84 Long term (current) use of oral hypoglycemic drugs; Z79.899 Other long term (current) drug therapy; Z87.891 Personal history of nicotine dependence; Z68.35 Body mass index [BMI] 35.0-35.9, adult; E11.51 Type 2 diabetes mellitus with diabetic peripheral angiopathy without gangrene; Z86.73 Personal history of transient ischemic attack (TIA), and cerebral infarction without residual deficits; Z95.1 Presence of aortocoronary bypass graft; R53.1 Weakness; Z66 Do not resuscitate; M25.569 Pain in unspecified knee; T40.2X5A Adverse effect of other opioids, initial encounter; I27.20 Pulmonary hypertension, unspecified; I25.5 Ischemic cardiomyopathy
CPT/HCPCS: 36415; 71045; 72100; 80048; 80053; 81001; 82962; 83605; 84443; 84484; 85025; 85610; 85652; 85730; 87040; 87086; 87426; 93005; 93306; 96374; 96375; 97110; 97116; 97162; 97166; 97530; 97535; 97802; 97803; 99283; 99285; J7030; Q9957; A4216; J2405

== ENCOUNTER 2020-12-10 14:00 | Inpatient (IN) | payer MEDICARE, SELFPAY ==
[2019-08-18 10:02] VITALS: BMI 36.6
[2020-12-05 17:33] VITALS: BMI 28.3
[2020-12-10 14:06] VITALS: BP 124/72; PULSE 91; RESP 16; TEMP 36.1; O2SAT 98; BMI 33.9; BMI 34.0
[2020-12-10] MEDS: Amiodarone 200 MG Tablet PO (17:50)
[2020-12-10] MEDS: metFORMIN HCl 500 MG Tablet PO (17:50)
[2020-12-10] MEDS: Carvedilol 12.5 MG Tablet PO (17:50)
[2020-12-10] MEDS: APIXABAN 2.5 MG TABLET PO (17:51)
[2020-12-10] MEDS: Menthol/Lanolin/Calamine/Znox 113 GM Tube 1 APPLIC TOPICAL (17:52)
[2020-12-10] MEDS: Nystatin Powder 15gm Bottle 1 APPLIC TOPICAL (17:52)
--- NOTE | 2020-12-10 18:10 | RAD_ITS ---
STUDY: X-RAY - ABDOMEN/PELVIS REASON FOR EXAM: Female, 80 years old. Nausea and vomiting. TECHNIQUE: Two AP supine views of the abdomen and pelvis. COMPARISON: CT of the abdomen and pelvis, 01/05/2020. FINDINGS: Normal visualized lung bases. There is an unremarkable bowel gas pattern. Air is seen throughout a nondistended colon. There is no small bowel dilatation. There is no obstruction. There is no demonstrated free abdominal air. The visualized liver, spleen and kidneys are grossly normal in size and morphology. Normal soft tissue structures. There is posterior fusion of L5-S1. RAD/Abdomen Single View IMPRESSION: No evidence of acute intra-abdominal process. Electronically Signed: Lalo Lopez DO at 22:05 EST Tel [phone], Service support ,
[2020-12-10] MEDS: Acetaminophen 325 MG Tablet 1300 MG PO ×2 (18:36→23:25)
[2020-12-10 19:09] LABS: Bacteria 0 SEEN /hpf (None Seen); Mucous, Urine 0 SEEN /hpf (<or=2+); Squamous Epithelial Cells - UA 0 SEEN /hpf (5-10)
[2020-12-10 19:11] LABS: Color, Urine Yellow (Yellow); Glucose, Dipstick 100 mg/dl (Normal); Ketone-Dipstick Negative (Negative); Leukocyte Esterase-Dipstick 25 /ul (Negative); Nitrite-Dipstick Negative (Negative); Occult Blood-Urine 250 /ul (Negative); Protein-Dipstick 30 mg/dl (Negative); Specific Gravity, Urine 1.015 (1.002-1.030); Urine Bilirubin Dipstick Negative (Negative); Urine Clarity Clear (Clear); Urine Urobilinogen 1 mg/dl (Normal)
--- NOTE | 2020-12-10 19:28 | HP.PCM_ITS ---
Problem List (1) Debility Status: Acute (2) Fever Status: Acute (3) Rectal pain Status: Acute (4) Fecal impaction of colon Status: Acute (5) Malaise Status: Acute (6) Atrial fibrillation with rapid ventricular response Status: Acute (7) NSTEMI (non-ST elevated myocardial infarction) Status: Acute (8) Endometrial cancer Status: Chronic (9) Bladder cancer Status: Chronic (10) Diabetes mellitus Status: Chronic (11) Hypertension Status: Chronic (12) Hyperlipidemia Status: Chronic (13) PAOD (peripheral arterial occlusive disease) Status: Chronic (14) Urinary tract infection Status: Acute History of Present Illness Date of Admission: 12/10/20 Chief Complaint: Here for rehabilitation, strengthening, prior to discharge home with family. 12/05/2020 The patient is a 80 year old Female with below past medical history presented to [facility] Emergency Department with weakness, rectal pain, fever. 12/05/2020 Chest X-ray showed cardiomegaly. 12/05/2020 EKG atrial fibrillation with rapid ventricular response, premature wide complex. Fever, rectal pain, malaise, decreased appetite, decreased urine output. Cardizem IV given for atrial fibrillation with rapid ventricular response. 12/05/2020 Admit to Hospital. Constipation x 6 days. Refused chemotherapy for endometrial cancer. Lactulose twice daily, mineral oil enema for constipation. Hold narcotics for constipation. Restart Metoprolol for atrial fibrillation with rapid ventricular response. Elevated troponin secondary to demand ischemia. 12/05/2020 Echo moderate global LV systolic dysfunction. EF 30%. Mild global RV systolic dysfunction. Right ventricular systolic pressure 69mm HG consistent with moderate pulmonary hypertension. 12/06/2020 Feeling better after several large bowel movements. Heparin drip, Metoprolol, Amiodarone drip, for atrial fibrillation with rapid ventricular response. NSTEMI, demand ischemia secondary to atrial fibrillation with rapid ventricular response. Constipation resolved. 12/06/2020 Cardiology, Diltiazem intolerable. Amiodarone IV, Heparin IV, recommend chcf anticoagulation. 12/07/2020 Palliative consulted. 12/07/2020 Amiodarone drip, Carvedilol, Eliquis for atrial fibrillation with rapid ventricular response. Constipation resolved, recommend daily Miralax. Continue to decline treatment for endometrial cancer. 12/08/2020 Amiodarone drip to Amiodarone 400MG twice daily. Increase Carvedilol to 12.5MG twice daily. Stop Plavix, continue Aspirin 81MG daily, Eliquis 2.5MG twice daily, Amiodarone, Carvedilol. 12/09/2020 Cardizem intolerable. 12/10/2020 Admit to TCU with debility, here for rehabilitation, strengthening, prior to discharge home with family. Resident complains of nausea, evaluation ordered, Zofran ODT as needed for nausea. Past Medical History Past Medical History (Chronic Problems): Chronic Problems (Last Reviewed 01/11/20 @ 10:32 by Falguni Kline) Endometrial cancer, FIGO stage IIIA (Chronic) Endometrial cancer (Chronic) Bladder cancer (Chronic) Diabetes mellitus (Chronic) Hypertension (Chronic) Hyperlipidemia (Chronic) PAOD (peripheral arterial occlusive disease) (Chronic) Medical History: Medical History (Last Reviewed 01/11/20 @ 10:32 by Falguni Kline) CVA (cerebral vascular accident) I63.9 History of bladder cancer Z85.51 Allergies latex Allergy (Verified 12/02/20 11:46) Hives sulfur dioxide Allergy (Verified 12/02/20 11:46) Hives adhesive tape Adverse Reaction (Verified 12/02/20 11:46) Rash Home Medications: Ambulatory Orders Medication Instructions Recorded aspirin 81 mg tablet,delayed 81 mg PO DAILY 07/29/19 release atorvastatin 20 mg tablet 20 mg PO DAILY 07/29/19 lisinopril 2.5 mg tablet 2.5 mg PO DAILY 07/29/19 metformin 500 mg tablet 500 mg PO BID 07/29/19 Oxycodone HCl/Acetaminophen 1 tab PO Q6H PRN PRN 5 Days #20 tab 12/02/20 [Percocet 5-325] Acetaminophen [Tylenol Arthritis] 1,300 mg PO TID PRN PRN 12/05/20 Amiodarone HCl [Cordarone] 200 mg PO BIDCM 12/10/20 Apixaban [Eliquis] 2.5 mg PO BID 12/10/20 Carvedilol [Coreg (Beta Blanca)] 12.5 mg PO BIDCM 12/10/20 Surgical History: Surgical History (Last Reviewed 01/11/20 @ 10:32 by Falguni Kline) Carpal tunnel syndrome on left G56.02 H/O carotid endarterectomy Z98.890 H/O dilation and curettage Z98.890 IUD Removal History of smuda-[id number] bypass Z95.828 History of back surgery Z98.890 Hx of foot surgery Z98.890 left Pilonidal cyst L05.91 Status post eye surgery Z98.890 Surgical History: dilatation and curettage, hysterectomy, - - Left carpal tunnel release, carotid endarterectomy, Aorta iliac femoral bypass, back surgery, left foot surgery, pilonidal cyst, eye surgery. 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 Smoking Status: Former smoker Tobacco Use: Cigarettes Alcohol: None Drugs: None - *Family History Maternal History Items: Cancer Paternal History Items: - - in a car accident, no past medical history that she is aware of Review of Systems Constitutional: Denies: Chills, Fever, Weight Change HEENT: Denies: Head Aches, Sinus Congestion, Sinus Drainage Cardiovascular: Denies: Chest Pain, Palpitations Respiratory: Denies: Cough, Shortness of breath at rest, Sputum production Gastrointestinal: Reports: Nausea. Denies: Abdominal Pain, Vomiting Genitourinary: Denies: Dysuria Musculoskeletal: Denies: Joint Pain, Joint Tenderness Skin: Denies: Rash, Wounds Neurological: Denies: Numbness, Tingling, Focal weakness Psychiatric: Denies: Anxiety, Depression, Homicidal Ideations, Suicidal Ideations Hematologic/ Lymphatic: Denies: Easy Bruising, Easy Bleeding VTE Information - Inpt Only VTE Present on Admission: No VTE Mechan Device Prophylaxis: Knee High JAHAIRA Hose VTE Pharm Prophylaxis ordered?: No Reason prophylaxis not ordered:: Treatment Not Indicated Patient Problems: Active and Suspected Problems (Last Reviewed 01/11/20 @ 10:32 by Falguni Kline) Urinary tract infection (Acute) Debility (Acute) Fever (Acute) Rectal pain (Acute) Fecal impaction of colon (Acute) Malaise (Acute) Atrial fibrillation with rapid ventricular response (Acute) NSTEMI (non-ST elevated myocardial infarction) (Acute) - Physical Exam Vitals/I&O's: Vital Signs Temp Pulse Resp BP Pulse Ox 96.9 F L 91 16 124/72 H 98 12/10/20 14:06 12/10/20 14:06 12/10/20 14:06 12/10/20 14:06 12/10/20 14:06 Oxygen Delivery Method Room Air Weight: 76.3 kg Body Mass Index (BMI) 34.0 Intake and Output for Last 24 Hours 12/08/20 12/09/20 12/10/20 23:59 23:59 23:59 Intake Total 120 / 120 Balance 120 / 120 General: Alert, Oriented x3, Cooperative HEENT: Atraumatic, PERRLA, EOMI, Normocephalic Neck: Supple, No JVD, Negative Carotid Bruits Lungs: Clear to auscultation, Normal air movement Cardiovascular: No murmurs, Irregular Rate Abdomen: Bowel Sounds Present, Soft, Non Tender Extremities: No edema, Capillary Refill Less than 3 Seconds Skin: No rashes, No breakdown Musculoskeletal: No Tenderness to Palpation of Joints or Extremities Neurological: Cranial nerves II-XII grossly intact Psych/Mental Status: Normal Affect, Appropriate Laboratory Results 12/10/20 15:25: COVID-19 (AMBAR) Pending 12/10/20 19:00: Urine Color Pending, Urine Clarity Pending, Urine pH Pending, Ur Specific [place] Pending, Urine Protein Pending, Urine Glucose (UA) Pending, Urine Ketones Pending, Urine Occult Blood Pending, Urine Nitrite Pending, Urine Bilirubin Pending, Urine Urobilinogen Pending, Ur Leukocyte Esterase Pending, Urine RBC Pending, Urine WBC Pending, Ur Squamous Epith Cells Pending, Urine Bacteria Pending, Urine Mucus Pending Current Medications Acetaminophen (Acetaminophen 325 Mg Tablet) 1,300 mg PO TID PRN PRN PRN Reason: Pain 1-10 or Fever Last Admin: 12/10/20 18:36 Dose: 1,300 mg Documented by: [facility]iod[facility] ([facility] 200 Mg [facility]) [facility] Admin: 12/10/20 17:50 Dose: 200 mg Documented by: Apixaban (Apixaban 2.5 Mg Tablet) 2.5 mg PO BID [facility] Last Admin: 12/10/20 17:51 Dose: 2.5 mg Documented by: Aspirin (Aspirin E.C. 81 Mg Tablet) 81 mg PO DAILY [facility] Atorvastatin Calcium (Atorvastatin Calcium 20 Mg Tablet) 20 mg PO QHS [facility] Bisacodyl (Bisacodyl 10 Mg Suppository) 10 mg RC DAILY PRN PRN PRN Reason: CONSTIPATION Calamine/Phenol (Menthol/Lanolin/Calamine/Znox 113 Gm Tube) 1 applic TOPICAL BID [facility]; Protocol Last Admin: 12/10/20 17:52 Dose: 1 applicatio Documented by: Carvedilol (Carvedilol 12.5 Mg Tablet) [facility] Last Admin: 12/10/20 17:50 Dose: 12.5 mg Documented by: Lisinopril (Lisinopril 2.5 Mg Tablet) 2.5 mg PO DAILY [facility] Metformin HCl (Metformin Hcl 500 Mg Tablet) [facility] Last Admin: 12/10/20 17:50 Dose: 500 mg Documented by: Nystatin (Nystatin Powder 15gm Bottle) 1 applic TOPICAL BID [facility]; Protocol Last Admin: 12/10/20 17:52 Dose: 1 applicatio Documented by: Ondansetron HCl (Ondansetron Odt 4 Mg Tablet) 4 mg PO Q8H PRN PRN PRN Reason: NAUSEA Oxycodone HCl (Oxycodone 5 Mg Tablet) 5 mg PO Q6H PRN PRN PRN Reason: Back pain Polyethylene Glycol (Polyethylene Glycol 3350 17 Gm Packet) 17 gm PO DAILY [facility] Tuberculin PPD (Tuberculin,Purif.Prot.Deriv. 50 Tu/Ml Vial) 5 tu ID X1 ONE Stop: 12/11/20 10:01 Tuberculin PPD (Tuberculin,Purif.Prot.Deriv. 50 Tu/Ml Vial) 5 tu ID X1 ONE Stop: 12/18/20 10:01 Assessment/Plan All Active Problems (Last Reviewed 01/11/20 @ 10:32 by Falguni Kline) Encounter for education (Acute) History of hypertension (Acute) History of bladder cancer (Acute) History of type 2 diabetes mellitus (Acute) History of hypercholesterolemia (Acute) New onset atrial fibrillation (Acute) Urinary tract infection (Acute) Prerenal azotemia (Acute) Hyperglycemia due to type 2 diabetes mellitus (Acute) Debility (Acute) Fever (Acute) Rectal pain (Acute) Fecal impaction of colon (Acute) Malaise (Acute) Atrial fibrillation with rapid ventricular response (Acute) NSTEMI (non-ST elevated myocardial infarction) (Acute) 80 year old female with below past medical history hospitalized for atrial fibrillation with rapid ventricular response, complicated by rectal pain secondary to fecal impaction of colon, NSTEMI secondary to demand ischemia, endometrial cancer declining chemotherapy, admitted to TCU with debility, here for rehabilitation, strengthening, prior to discharge home with family. * Debility - PT/OT. * Pain - Tylenol 1300MG TID PRN pain (1-3), Oxycodone 5MG Q4H PRN pain (4-10). * Bowel - Miralax 17GM daily, Senna/colace 2 tablets BID, MOM 30ML daily PRN, Dulcolax 10MG PO daily PRN. * Adult immunization - Administer Prevnar 13, Pneumovax 23, Fluzone, COVID19 vaccine as appropriate. * DVT prophylaxis - Not necessary, already on Eliquis. * Atrial fibrillation - Coreg 12.5MG BID, Amiodarone 200MG BID, Eliquis 2.5MG BID. * Coronary Artery Disease - Coreg 12.5MG BID, Lisinopril 2.5MG daily, Aspirin 81MG daily. * Hyperlipidemia - Atorvastatin 20MG QHS. * Chronic systolic congestive heart failure - Coreg 12.5MG BID, Lisinopril 2.5MG daily. * Diabetes Mellitus II - Metformin 500MG BID. * Skin irritation - Calmoseptine topical BID. * Tinea Corporis - Nystatin powder topical BID. * Nausea - X-ray of abdomen negative for impaction, Zofran ODT 4MG Q8H PRN.
[2020-12-10 19:38] LABS: Hyaline Cast 0-5 SEEN /lpf (0-5); Red Blood Cells-Urine 50-100 SEEN /hpf (0-5); White Blood Cells 0-5 SEEN /hpf (0-5)
--- NOTE | 2020-12-10 20:25 | NURSING ---
Cont to c/o headache, refuses oxicodone, ,states ill wait until i can have Tyleol again
[2020-12-10] MEDS: Atorvastatin Calcium 20 MG Tablet PO (21:18)
--- NOTE | 2020-12-11 01:39 | NURSING ---
c/o not being able to sleep, states worries all night, repositioned and given food to eat, quiet after , message left for
[2020-12-11 05:26] VITALS: BP 141/88; PULSE 66; RESP 18; TEMP 37.2; O2SAT 98
[2020-12-11] MEDS: Polyethylene Glycol 3350 17 GM PACKET PO (05:28)
[2020-12-11] MEDS: Menthol/Lanolin/Calamine/Znox 113 GM Tube 1 APPLIC TOPICAL ×2 (05:29→17:05)
[2020-12-11] MEDS: Lisinopril 2.5 MG Tablet PO (05:29)
[2020-12-11] MEDS: APIXABAN 2.5 MG TABLET PO ×2 (05:29→17:04)
[2020-12-11] MEDS: Nystatin Powder 15gm Bottle 1 APPLIC TOPICAL ×2 (05:29→17:06)
[2020-12-11] MEDS: Aspirin E.C. 81 MG Tablet PO (05:29)
[2020-12-11] MEDS: Senna/Docusate Sodium 1 Tablet 2 TABLET PO ×2 (05:29→17:04)
[2020-12-11 05:45] LABS: Absolute Lymphocyte Count 0.45 X10^3/uL (0.83-4.51); Absolute Neutrophil Count 5.6 X10^3/uL (2.0-7.7); Basophil# 0.03 X10^3/uL; Basophil% 0.4 % (0-1); Eosinophil# 0.18 X10^3/uL; Eosinophils% 2.6 % (0-5); Hematocrit 35.5 % (37-47); Hemoglobin 10.5 g/dL (12.0-15.0); Lymphocyte # 0.45 X10^3/ul (4.0); Lymphocyte % 6.5 % (19-41); Mean Corp Hgb Conc 29.6 g/dL (32-36); Mean Corpuscular Hgb 28.2 pg (27.0-32.0); Mean Corpuscular Volume 95.2 fL (81-99); Mean Platelet Vol. 9.6 fl (6.2-12.0); Monocyte# 0.69 X10^3/uL; Monocyte% 9.9 % (0-10); NRBC Flagged by Analyzer 0.4 % (0-5); Neutrophil # 5.55 X10^3/uL (2.7-7.7); Neutrophil % 79.7 % (47-70); POSITIVE DIFFERENTIAL YES; Platelet Count 244 K/mm3 (150-450); RBC Distribution Width CV 15.8 % (11.6-14.6); RBC Distribution Width SD 53.5 fl (35.1-43.9); Red Blood Count 3.73 M/mm3 (4.2-5.4)
[2020-12-11 06:00] LABS: Differential Indicated SCAN CRITERIA MET
[2020-12-11 06:04] LABS: Anion Gap 6 (5-15); BUN 33 mg/dL (7-18); BUN/Creat Ratio 25.2 RATIO (10-20); Calcium,Total 8.1 mg/dL (8.5-10.1); Chloride 100 mmol/L (98-107); Creatinine, Serum 1.31 mg/dL (0.55-1.02); EST Glomerular Filtration Rate 42 mL/min (>60); Est Glom Filt Rate - Afr Amer 50 mL/min (>60); Estimated Creatinine Clearance 41.26 ml/min; Glucose 173 mg/dL (74-106); Potassium 4.3 mmol/L (3.5-5.1); Sodium Level 132 mmol/L (136-145)
[2020-12-11 06:21] LABS: Bedside Glucose 183 mg/dL (70-110)
[2020-12-11] MEDS: 0.9% Normal Saline 1,000 ML 60 ML IV (09:11)
[2020-12-11] MEDS: metFORMIN HCl 500 MG Tablet PO ×2 (09:18→17:05)
[2020-12-11] MEDS: Carvedilol 12.5 MG Tablet PO ×2 (09:18→17:05)
[2020-12-11] MEDS: Amiodarone 200 MG Tablet PO ×2 (09:18→17:05)
[2020-12-11] MEDS: Tuberculin,Purif.prot.deriv. 50 TU/ML Vial 5 ML ID (11:09)
[2020-12-11] MEDS: Bisacodyl 5 MG Tablet 10 MG PO (11:17)
--- NOTE | 2020-12-11 11:18 | NURSING ---
R' HAS NOT HAD BM SINCE 12/06. OFFERED MILK OF MAG BUT WANTED TO TRY DULCOLAX TABS FIRST. GIVEN AT THIS TIME.
--- NOTE | 2020-12-11 11:56 | PHA.CONS_ITS ---
<Carmela Sr - Last Filed: 12/11/20 11:56> Progress Note - Pharmacy Subjective: TCU Admission Objective: Allergies latex Allergy (Verified 12/02/20 11:46) Hives sulfur dioxide Allergy (Verified 12/02/20 11:46) Hives adhesive tape Adverse Reaction (Verified 12/02/20 11:46) Rash Current Medications Generic Name Dose Route Start Last Admin Trade Name Freq PRN Reason Stop Dose Admin Acetaminophen 1,300 mg 12/10/20 14:23 12/10/20 23:25 Acetaminophen 325 Mg Tablet PO 1,300 mg TID PRN PRN Administration Pain Score 1-3 Amiodarone HCl 200 mg 12/10/20 17:00 12/11/20 09:18 Amiodarone 200 Mg Tablet PO 200 mg BIDCM [facility] Administration Apixaban 2.5 mg 12/10/20 18:00 12/11/20 05:29 Apixaban 2.5 Mg Tablet PO 2.5 mg BID [facility] Administration Aspirin 81 mg 12/11/20 06:00 12/11/20 05:29 Aspirin E.C. 81 Mg Tablet PO 81 mg DAILY [facility] Administration Atorvastatin Calcium 20 mg 12/10/20 22:00 12/10/20 21:18 Atorvastatin Calcium 20 Mg Tablet PO 20 mg QHS [facility] Administration Bisacodyl 10 mg 12/10/20 19:58 12/11/20 11:17 Bisacodyl 5 Mg Tablet PO 10 mg DAILY PRN Administration Constipation Calamine/Phenol 1 applic 12/10/20 18:00 12/11/20 05:29 Menthol/Lanolin/Calamine/Znox 113 Gm Tube TOPICAL 1 applicatio BID [facility] Administration Protocol Carvedilol 12.5 mg 12/10/20 17:00 12/11/20 09:18 Carvedilol 12.5 Mg Tablet PO 12.5 mg BIDCM [facility] Administration Sodium Chloride 1,000 mls @ 60 mls/hr 12/11/20 07:45 12/11/20 09:11 IV 60 mls/hr .[id number] [facility] Administration Lisinopril 2.5 mg 12/11/20 06:00 12/11/20 05:29 Lisinopril 2.5 Mg Tablet PO 2.5 mg DAILY [facility] Administration Magnesium Hydroxide 30 ml 12/10/20 19:57 Magnesium Hydroxide 30 Ml Udc PO DAILY PRN Constipation Melatonin 10 mg 12/11/20 22:00 Melatonin 10 Mg Tablet PO QHS [facility] Metformin HCl 500 mg 12/10/20 17:00 12/11/20 09:18 Metformin Hcl 500 Mg Tablet PO 500 mg BIDCM [facility] Administration Nystatin 1 applic 12/10/20 18:00 12/11/20 05:29 Nystatin Powder 15gm Bottle TOPICAL 1 applicatio BID [facility] Administration Protocol Ondansetron HCl 4 mg 12/10/20 17:31 Ondansetron Odt 4 Mg Tablet PO Q8H PRN PRN NAUSEA Polyethylene Glycol 17 gm 12/11/20 06:00 12/11/20 05:28 Polyethylene Glycol 3350 17 Gm Packet PO 17 gm DAILY [facility] Administration Senna/Docusate Sodium 2 tablet 12/11/20 06:00 12/11/20 05:29 Senna/Docusate Sodium 1 Tablet PO 2 tablet BID [facility] Administration Sodium Chloride 10 - 40 ml 12/11/20 09:34 0.9% Saline Lock 10 Ml Syringe IV UD PRN SALINE FLUSH Tramadol HCl 50 mg 12/11/20 07:50 Tramadol 50 Mg Tablet PO Q6H PRN PRN Pain Score 4-10 Tuberculin PPD 5 tu 12/18/20 10:00 Tuberculin,Purif.Prot.Deriv. 50 Tu/Ml Vial ID 12/18/20 10:01 X1 ONE Problem List (Last Reviewed 01/11/20 @ 10:32 by Falguni Kline) Urinary tract infection (Acute) Debility (Acute) Fever (Acute) Rectal pain (Acute) Fecal impaction of colon (Acute) Malaise (Acute) Atrial fibrillation with rapid ventricular response (Acute) NSTEMI (non-ST elevated myocardial infarction) (Acute) Endometrial cancer (Chronic) Bladder cancer (Chronic) Diabetes mellitus (Chronic) Hypertension (Chronic) Hyperlipidemia (Chronic) PAOD (peripheral arterial occlusive disease) (Chronic) Vital Signs Temp Pulse Resp BP Pulse Ox 98.9 F 66 18 141/88 H 98 12/11/20 05:26 12/11/20 05:26 12/11/20 05:26 12/11/20 05:26 12/11/20 05:26 Oxygen Delivery Method Room Air Weight: 76 kg Body Mass Index (BMI) 34.0 Sodium 132 mmol/L (136-145) L 12/11/20 05:15 Potassium 4.3 mmol/L (3.5-5.1) 12/11/20 05:15 Chloride 100 mmol/L (98-107) 12/11/20 05:15 Carbon Dioxide 26.0 mmol/L (21.0-32.0) 12/11/20 05:15 Anion Gap 6 (5-15) 12/11/20 05:15 BUN 33 mg/dL (7-18) H 12/11/20 05:15 Creatinine 1.31 mg/dL (0.55-1.02) H 12/11/20 05:15 Est GFR (MDRD) Af Amer 50 mL/min (>60) L 12/11/20 05:15 Est GFR (MDRD) Non-Af 42 mL/min (>60) L 12/11/20 05:15 BUN/Creatinine Ratio 25.2 RATIO (10-20) H 12/11/20 05:15 Glucose 173 mg/dL (74-106) H 12/11/20 05:15 Assessment/Plan: 1. Pain: acetaminophen 1300mg PO TID PRN pain (1-3) and tramadol 50mg PO Q6H PRN pain (4-10). Please continue to monitor for increased pain, PRN usage, and renal function. *2. CAD/chronic systolic CHF/Atrial fibrillation: carvedilol 12.5mg PO BID, lisinopril 2.5mg PO daily, aspirin 81mg PO daily, amiodarone 200mg PO BIDCM, apixaban 2.5mg PO BID. Please continue to monitor HR (last 66 bpm), BP (last 141/88 mmHg), renal function, serum potassium (last 4.3 mmol/L), QTc interval (last 443 ms) and S/S of bleeding. Please consider increasing Apixaban to 5mg PO BID if clinically appropriate. Patient does not meet 2 or more of the criteria for lower dosing. Thanks. *3. Diabetes Mellitus II: Metformin 500mg PO BIDCM. Please continue to monitor renal function, blood glucose (last 183 mg/dL) and A1c (last unknown). Please consider ordering a A1c level as clinically appropriate. Thanks. *4. Hyperlipidemia: atorvastatin 20mg PO QHS. Please continue to monitor LFTs (last AST: 42; ALT: 46), lipid panel (last unknown) and for muscle pain. Please consider ordering a lipid panel as clinically appropriate. Thanks. 5. Nausea: ondansetron ODT 4mg PO Q8H PRN nausea. Please continue to monitor for increased nausea, QTc interval (last 443 ms) and PRN usage. 6. Insomnia: melatonin 10mg PO QHS. Please continue to monitor for daytime drowsiness. If effect is not adequate for the patient, give melatonin 2 hours before bedtime before changing dose/medication. Psychotropic Medications: None Unnecessary Medications: None Bowel Regimen: Miralax 17gm PO daily, senna/docusate 2T PO BID, MOM 30mL PO daily PRN constipation, bisacodyl 10mg PO daily PRN constipation. Please continue to monitor for constipation and PRN usage. Date of Note:: 12/11/20 - Provider Comments Provider responsibility: Provider responsible to enter orders to implement recommendations <Arnaud Lewis Chi - Last Filed: 12/11/20 17:33> Progress Note - Pharmacy Subjective: [] Objective: Allergies latex Allergy (Verified 12/02/20 11:46) Hives sulfur dioxide Allergy (Verified 12/02/20 11:46) Hives adhesive tape Adverse Reaction (Verified 12/02/20 11:46) Rash Current Medications Generic Name Dose Route Start Last Admin Trade Name Freq PRN Reason Stop Dose Admin Acetaminophen 1,300 mg 12/10/20 14:23 12/10/20 23:25 Acetaminophen 325 Mg Tablet PO 1,300 mg TID PRN PRN Administration Pain Score 1-3 Amiodarone HCl 200 mg 12/10/20 17:00 12/11/20 17:05 Amiodarone 200 Mg Tablet PO 200 mg BIDCM [facility] Administration Apixaban 2.5 mg 12/10/20 18:00 12/11/20 17:04 Apixaban 2.5 Mg Tablet PO 2.5 mg BID [facility] Administration Aspirin 81 mg 12/11/20 06:00 12/11/20 05:29 Aspirin E.C. 81 Mg Tablet PO 81 mg DAILY [facility] Administration Atorvastatin Calcium 20 mg 12/10/20 22:00 12/10/20 21:18 Atorvastatin Calcium 20 Mg Tablet PO 20 mg QHS [facility] Administration Bisacodyl 10 mg 12/10/20 19:58 12/11/20 11:17 Bisacodyl 5 Mg Tablet PO 10 mg DAILY PRN Administration Constipation Calamine/Phenol 1 applic 12/10/20 18:00 12/11/20 17:05 Menthol/Lanolin/Calamine/Znox 113 Gm Tube TOPICAL 1 applicatio BID [facility] Administration Protocol Carvedilol 12.5 mg 12/10/20 17:00 12/11/20 17:05 Carvedilol 12.5 Mg Tablet PO 12.5 mg BIDCM [facility] Administration Sodium Chloride 1,000 mls @ 60 mls/hr 12/11/20 07:45 12/11/20 09:11 IV 60 mls/hr .[id number] [facility] Administration Lisinopril 2.5 mg 12/11/20 06:00 12/11/20 05:29 Lisinopril 2.5 Mg Tablet PO 2.5 mg DAILY [facility] Administration Magnesium Hydroxide 30 ml 12/10/20 19:57 Magnesium Hydroxide 30 Ml Udc PO DAILY PRN Constipation Melatonin 10 mg 12/11/20 22:00 Melatonin 10 Mg Tablet PO QHS [facility] Metformin HCl 500 mg 12/10/20 17:00 12/11/20 17:05 Metformin Hcl 500 Mg Tablet PO 500 mg BIDCM [facility] Administration Nystatin 1 applic 12/10/20 18:00 12/11/20 17:06 Nystatin Powder 15gm Bottle TOPICAL 1 applicatio BID [facility] Administration Protocol Ondansetron HCl 4 mg 12/10/20 17:31 12/11/20 13:42 Ondansetron Odt 4 Mg Tablet PO 4 mg Q8H PRN PRN Administration NAUSEA Polyethylene Glycol 17 gm 12/11/20 06:00 12/11/20 05:28 Polyethylene Glycol 3350 17 Gm Packet PO 17 gm DAILY [facility] Administration Senna/Docusate Sodium 2 tablet 12/11/20 06:00 12/11/20 17:04 Senna/Docusate Sodium 1 Tablet PO 2 tablet BID [facility] Administration Sodium Chloride 10 - 40 ml 12/11/20 09:34 0.9% Saline Lock 10 Ml Syringe IV UD PRN SALINE FLUSH Tramadol HCl 50 mg 12/11/20 07:50 Tramadol 50 Mg Tablet PO Q6H PRN PRN Pain Score 4-10 Tuberculin PPD 5 tu 12/18/20 10:00 Tuberculin,Purif.Prot.Deriv. 50 Tu/Ml Vial ID 12/18/20 10:01 X1 ONE Problem List (Last Reviewed 01/11/20 @ 10:32 by Falguni Kline) Urinary tract infection (Acute) Debility (Acute) Fever (Acute) Rectal pain (Acute) Fecal impaction of colon (Acute) Malaise (Acute) Atrial fibrillation with rapid ventricular response (Acute) NSTEMI (non-ST elevated myocardial infarction) (Acute) Endometrial cancer (Chronic) Bladder cancer (Chronic) Diabetes mellitus (Chronic) Hypertension (Chronic) Hyperlipidemia (Chronic) PAOD (peripheral arterial occlusive disease) (Chronic) Vital Signs Temp Pulse Resp BP Pulse Ox 97.6 F L 78 18 105/61 96 12/11/20 13:17 12/11/20 13:17 12/11/20 13:17 12/11/20 17:02 12/11/20 13:17 Oxygen Delivery Method Room Air Weight: 76 kg Body Mass Index (BMI) 34.0 Sodium 132 mmol/L (136-145) L 12/11/20 05:15 Potassium 4.3 mmol/L (3.5-5.1) 12/11/20 05:15 Chloride 100 mmol/L (98-107) 12/11/20 05:15 Carbon Dioxide 26.0 mmol/L (21.0-32.0) 12/11/20 05:15 Anion Gap 6 (5-15) 12/11/20 05:15 BUN 33 mg/dL (7-18) H 12/11/20 05:15 Creatinine 1.31 mg/dL (0.55-1.02) H 12/11/20 05:15 Est GFR (MDRD) Af Amer 50 mL/min (>60) L 12/11/20 05:15 Est GFR (MDRD) Non-Af 42 mL/min (>60) L 12/11/20 05:15 BUN/Creatinine Ratio 25.2 RATIO (10-20) H 12/11/20 05:15 Glucose 173 mg/dL (74-106) H 12/11/20 05:15 Assessment/Plan: Psychotropic Medications: Unnecessary Medications: Bowel Regimen: - Provider Comments Provider responsibility: Provider responsible to enter orders to implement recommendations Provider Comments to Recommendations by Pharmacy: Agree
--- NOTE | 2020-12-11 12:39 | NURSING ---
Addendum entered by Yanet Sweeney 12/11/20 13:50: WHEN ADMINISTERING TB TEST IN R' RIGHT FA, WARNED R' THAT IT WOULD STING/PINCH A LITTLE. ONCE MEDICATION PUSHED THROUGH TO FORM BLEB, R' PULLED AWAY AND YELLED, THAT HURT! I SHOULD PUNCH YOU IN YOUR FACE! AREA IS STARTING TO BRUISE. Original Note: DOCK OPERATOR DISCUSSED CODE STATUS WITH R'. SHE WISHES DNR-CC ORDER. PAPER SIGNED AND PURPLE BRACELET IN PLACE.
[2020-12-11 13:17] VITALS: BP 100/65; PULSE 78; RESP 18; TEMP 36.4; O2SAT 96
--- NOTE | 2020-12-11 13:26 | CASEMGMT ---
Social Work Met with patient for initial assessment. Discussed code status with pt. Pt wishes to be DNR-CC. Nursing notified. MOLST form reviewed, communication to , placed in chart. Advanced directives on file. Son, Allen, is HCPOA. Pt is agreeable to Palliative. Explained M[employer] insurance with [employer] 12/17 and continued stay is not guaranteed. The goal is for pt to return home with son. However, pt tearful and anxious throughout assessment as she reports helpless as son is supposed to be getting surgery soon and she cannot help him at home. She feels frustrated with her recent loss of independence. Validated patient's feelings. Provided emotional support. Encouraged pt that the goal for rehab here is to get better, return close to PLOF and return home. Pt understands she has cancer and that is changing her functional status, but frustrated she cannot care for her son. Encouraged her to focus on herself while she is here so she can hopefully recover and get home as soon as possible and be capable fo caring for son. Pt agrees. SW to continue to follow. Nicolette Weller, WASTE REDUCTION COORDINATOR [employer]EVE GRADER TENDER
[2020-12-11] MEDS: Ondansetron ODT 4 MG Tablet PO (13:42)
--- NOTE | 2020-12-11 15:47 | NURSING ---
fountain helper updated dr ulloa regarding pt anxiety, difficulty sleeping & requesting less potent pain med. new orders for NS @ 60cc/hr, melatonin, dc oxy and start ultram. BMP in AM.
[2020-12-11 17:02] VITALS: BP 105/61
[2020-12-11] MEDS: MELATONIN 10 MG TABLET PO (22:44)
[2020-12-11] MEDS: Atorvastatin Calcium 20 MG Tablet PO (22:44)
[2020-12-11] MEDS: Acetaminophen 325 MG Tablet 1300 MG PO (22:45)
[2020-12-12] MEDS: 0.9% Normal Saline 1,000 ML 60 ML IV ×2 (02:04→19:00)
[2020-12-12 02:31] VITALS: BP 104/55; PULSE 102; RESP 20; TEMP 36.9; O2SAT 92
[2020-12-12] MEDS: traMADol 50 MG Tablet PO ×3 (03:26→20:35)
[2020-12-12 06:16] LABS: Bedside Glucose 149 mg/dL (70-110)
[2020-12-12] MEDS: Nystatin Powder 15gm Bottle 1 APPLIC TOPICAL ×2 (06:40→17:39)
[2020-12-12] MEDS: Lisinopril 2.5 MG Tablet PO (06:41)
[2020-12-12] MEDS: Menthol/Lanolin/Calamine/Znox 113 GM Tube 1 APPLIC TOPICAL ×2 (06:41→17:39)
[2020-12-12] MEDS: APIXABAN 2.5 MG TABLET PO ×2 (06:41→17:38)
[2020-12-12 06:44] LABS: Anion Gap 7 (5-15); BUN 31 mg/dL (7-18); BUN/Creat Ratio 32.6 RATIO (10-20); Chloride 102 mmol/L (98-107); Creatinine, Serum 0.95 mg/dL (0.55-1.02); EST Glomerular Filtration Rate 60 mL/min (>60); Est Glom Filt Rate - Afr Amer 73 mL/min (>60); Estimated Creatinine Clearance 56.67 ml/min; Glucose 142 mg/dL (74-106); Potassium 4.8 mmol/L (3.5-5.1); Sodium Level 132 mmol/L (136-145)
[2020-12-12] MEDS: Ondansetron ODT 4 MG Tablet PO (06:49)
[2020-12-12 08:10] VITALS: BP 128/74; PULSE 95
[2020-12-12] MEDS: Aspirin E.C. 81 MG Tablet PO (08:11)
[2020-12-12] MEDS: Amiodarone 200 MG Tablet PO ×2 (08:11→17:38)
[2020-12-12] MEDS: Carvedilol 12.5 MG Tablet PO ×2 (08:11→17:38)
[2020-12-12] MEDS: metFORMIN HCl 500 MG Tablet PO ×2 (08:11→17:38)
[2020-12-12 13:11] VITALS: BP 105/61; PULSE 99; RESP 16; TEMP 35.9; O2SAT 92
[2020-12-12 17:36] VITALS: BP 104/77; PULSE 84
[2020-12-12] MEDS: Senna/Docusate Sodium 1 Tablet 2 TABLET PO (17:41)
[2020-12-12] MEDS: Acetaminophen 325 MG Tablet 1300 MG PO (17:50)
--- NOTE | 2020-12-12 18:19 | NURSING ---
Pt refused mag citrate this evening despite multiple attempts, RN aware
[2020-12-12] MEDS: Atorvastatin Calcium 20 MG Tablet PO (20:35)
[2020-12-12] MEDS: MELATONIN 10 MG TABLET PO (20:35)
[2020-12-13] MEDS: Polyethylene Glycol 3350 17 GM PACKET PO (06:12)
[2020-12-13] MEDS: Lisinopril 2.5 MG Tablet PO (06:13)
[2020-12-13] MEDS: Nystatin Powder 15gm Bottle 1 APPLIC TOPICAL ×2 (06:14→17:11)
[2020-12-13] MEDS: Menthol/Lanolin/Calamine/Znox 113 GM Tube 1 APPLIC TOPICAL ×2 (06:14→17:10)
[2020-12-13] MEDS: APIXABAN 2.5 MG TABLET PO ×2 (06:14→17:10)
[2020-12-13 06:15] LABS: Bedside Glucose 139 mg/dL (70-110)
[2020-12-13] MEDS: Senna/Docusate Sodium 1 Tablet 2 TABLET PO ×2 (06:15→17:11)
[2020-12-13 06:29] VITALS: BP 101/69; PULSE 104; RESP 18; TEMP 36.2; O2SAT 93
[2020-12-13] MEDS: Amiodarone 200 MG Tablet PO ×2 (08:22→17:10)
[2020-12-13] MEDS: Carvedilol 12.5 MG Tablet PO ×2 (08:22→17:09)
[2020-12-13] MEDS: Aspirin E.C. 81 MG Tablet PO (08:22)
[2020-12-13] MEDS: metFORMIN HCl 500 MG Tablet PO ×2 (08:23→17:10)
[2020-12-13] MEDS: 0.9% Normal Saline 1,000 ML 60 ML IV (11:06)
[2020-12-13] MEDS: Acetaminophen 325 MG Tablet 1300 MG PO ×2 (11:06→20:52)
[2020-12-13 14:09] VITALS: BP 91/70; PULSE 97; RESP 18; TEMP 36.5; O2SAT 96
[2020-12-13] MEDS: traMADol 50 MG Tablet PO ×2 (15:42→23:33)
[2020-12-13] MEDS: Atorvastatin Calcium 20 MG Tablet PO (20:54)
[2020-12-13] MEDS: MELATONIN 10 MG TABLET PO (20:54)
[2020-12-14] MEDS: 0.9% Normal Saline 1,000 ML 60 ML IV ×2 (03:32→20:13)
[2020-12-14 06:12] VITALS: BP 97/68; PULSE 72; RESP 14; TEMP 36.1; O2SAT 97
[2020-12-14] MEDS: APIXABAN 2.5 MG TABLET PO ×2 (06:14→16:45)
[2020-12-14] MEDS: Lisinopril 2.5 MG Tablet PO (06:14)
[2020-12-14] MEDS: Nystatin Powder 15gm Bottle 1 APPLIC TOPICAL ×2 (06:14→16:48)
[2020-12-14] MEDS: Menthol/Lanolin/Calamine/Znox 113 GM Tube 1 APPLIC TOPICAL ×2 (06:18→16:47)
[2020-12-14 06:30] LABS: Bedside Glucose 172 mg/dL (70-110)
[2020-12-14] MEDS: metFORMIN HCl 500 MG Tablet PO ×2 (08:47→16:45)
[2020-12-14] MEDS: Aspirin E.C. 81 MG Tablet PO (08:47)
[2020-12-14] MEDS: Carvedilol 12.5 MG Tablet PO ×2 (08:47→16:45)
[2020-12-14] MEDS: Amiodarone 200 MG Tablet PO ×2 (08:47→16:46)
[2020-12-14] MEDS: traMADol 50 MG Tablet PO (08:52)
[2020-12-14] MEDS: Acetaminophen 325 MG Tablet 1300 MG PO (13:04)
[2020-12-14 13:57] VITALS: BP 91/57; PULSE 89; RESP 20; TEMP 36.5; O2SAT 94
[2020-12-14] MEDS: Hydrocortisone 25 MG Suppository RC (14:40)
--- NOTE | 2020-12-14 14:43 | NURSING ---
R' C/O RECTAL PAIN. ANUSOL R/S GIVEN AT THIS TIME. WILL MONITOR.
--- NOTE | 2020-12-14 16:26 | NURSING ---
Addendum entered by Yanet Sweeney 12/14/20 16:56: DR. LANZA SPOKE WITH R' AMIRA ELLEN. N.O9. ORDER FOR CT OF ABDOMEN/PELVIS WITH CONTRAST. ALSO, N.O. PRN OXYIR. Original Note: SPOKE WITH RNila COLLIERELLEN FOR DAILY UPDATE. SON CONCERNED THAT RECTAL PAIN COULD BE D/T TO CANCER. WANTS TO TALK TO DR. LANZA. NOTIFIED DR LANZA OF REQUEST TO CALL SON.
[2020-12-14 16:43] VITALS: BP 106/50; PULSE 112
[2020-12-14] MEDS: oxyCODONE 5 MG Tablet PO (16:44)
[2020-12-14] MEDS: Senna/Docusate Sodium 1 Tablet 2 TABLET PO (16:45)
--- NOTE | 2020-12-14 16:51 | NURSING ---
Addendum entered by Masha Corrales 12/17/20 07:34: Authorization for CT Scan approved. Auth # [id number]. RN updated Original Note: Precert started for CT of abdomen and pelvis, case # [id number], fax number [phone].
[2020-12-14] MEDS: MELATONIN 10 MG TABLET PO (21:15)
[2020-12-14] MEDS: Atorvastatin Calcium 20 MG Tablet PO (21:15)
[2020-12-15] MEDS: Ondansetron ODT 4 MG Tablet PO (03:07)
[2020-12-15 03:29] VITALS: BP 119/70; PULSE 111; RESP 18; TEMP 36.3; O2SAT 94
[2020-12-15] MEDS: Lisinopril 2.5 MG Tablet PO (05:44)
[2020-12-15] MEDS: Nystatin Powder 15gm Bottle 1 APPLIC TOPICAL ×2 (05:44→16:58)
[2020-12-15] MEDS: APIXABAN 2.5 MG TABLET PO ×2 (05:44→17:00)
[2020-12-15] MEDS: Menthol/Lanolin/Calamine/Znox 113 GM Tube 1 APPLIC TOPICAL ×2 (05:44→16:57)
[2020-12-15] MEDS: Senna/Docusate Sodium 1 Tablet 2 TABLET PO ×2 (05:44→17:00)
[2020-12-15 06:16] LABS: Bedside Glucose 132 mg/dL (70-110)
[2020-12-15] MEDS: Amiodarone 200 MG Tablet PO ×2 (08:13→16:56)
[2020-12-15] MEDS: Aspirin E.C. 81 MG Tablet PO (08:13)
[2020-12-15] MEDS: metFORMIN HCl 500 MG Tablet PO ×2 (08:13→16:57)
[2020-12-15] MEDS: Carvedilol 12.5 MG Tablet PO ×2 (08:13→16:57)
[2020-12-15] MEDS: oxyCODONE 5 MG Tablet PO ×2 (09:32→14:39)
[2020-12-15] MEDS: Acetaminophen 325 MG Tablet 1300 MG PO ×2 (11:37→22:20)
[2020-12-15 13:28] VITALS: BP 107/54; PULSE 121; RESP 18; TEMP 36.6; O2SAT 93
[2020-12-15] MEDS: traMADol 50 MG Tablet PO (17:09)
[2020-12-15 17:11] VITALS: PULSE 98
[2020-12-15] MEDS: MELATONIN 10 MG TABLET PO (22:20)
[2020-12-15] MEDS: Atorvastatin Calcium 20 MG Tablet PO (22:20)
[2020-12-16 05:41] VITALS: BP 110/56; PULSE 99; RESP 18; TEMP 36.6; O2SAT 93
[2020-12-16] MEDS: APIXABAN 2.5 MG TABLET PO ×2 (05:46→17:07)
[2020-12-16] MEDS: traMADol 50 MG Tablet PO ×3 (05:46→20:43)
[2020-12-16] MEDS: Lisinopril 2.5 MG Tablet PO (05:46)
[2020-12-16] MEDS: Senna/Docusate Sodium 1 Tablet 2 TABLET PO ×2 (05:47→17:07)
[2020-12-16] MEDS: Nystatin Powder 15gm Bottle 1 APPLIC TOPICAL ×2 (05:48→17:06)
[2020-12-16] MEDS: Menthol/Lanolin/Calamine/Znox 113 GM Tube 1 APPLIC TOPICAL ×2 (05:49→17:08)
[2020-12-16 06:16] LABS: Bedside Glucose 113 mg/dL (70-110)
[2020-12-16] MEDS: Carvedilol 12.5 MG Tablet PO ×2 (08:10→17:06)
[2020-12-16] MEDS: metFORMIN HCl 500 MG Tablet PO ×2 (08:10→17:07)
[2020-12-16] MEDS: Ondansetron ODT 4 MG Tablet PO (08:10)
[2020-12-16] MEDS: Aspirin E.C. 81 MG Tablet PO (08:10)
[2020-12-16] MEDS: Amiodarone 200 MG Tablet PO ×2 (08:10→17:07)
[2020-12-16 13:18] VITALS: BP 104/59; PULSE 78; RESP 16; TEMP 36.4; O2SAT 94
[2020-12-16] MEDS: Acetaminophen 325 MG Tablet 1300 MG PO (13:54)
[2020-12-16] MEDS: oxyCODONE 5 MG Tablet PO (15:07)
--- NOTE | 2020-12-16 15:16 | NURSING ---
R' HAS BEEN PAINFUL T/O DAY BUT REFUSING TO TAKE OXYIR. SHE STATES SHE HAS TAKEN IT BEFORE AND IT HAS MADE HER CONFUSED. REMINDER HER THAT SHE HAS TAKEN IT IN THE LAST COUPLE OF DAYS AND THERE HAVE NO REPORTS OF HER BEING CONFUSED. R' AGREEABLE TO TAKE AT THIS TIME. REPOSITIONED IN BED. WILL MONITOR.
[2020-12-16] MEDS: Atorvastatin Calcium 20 MG Tablet PO (20:44)
[2020-12-16] MEDS: MELATONIN 10 MG TABLET PO (20:44)
[2020-12-17] MEDS: Acetaminophen 325 MG Tablet 1300 MG PO ×2 (01:19→23:22)
--- NOTE | 2020-12-17 02:40 | NURSING ---
Taken off bedpan. Urine and stool mixed. Urine tea colored, strong. Stool brown and soft. Pericare performed. Calmoseptine applied to buttocks. Nystatin powder applied to b/l groin. New brief applied. Positioned in bed for comfort. Reports pain has decreased but continues to experience difficulty sleeping. Given orange sherbet and wes doone cookies per pt request. Call light w/ in reach.
[2020-12-17 04:00] VITALS: BP 143/51; PULSE 92; RESP 16; TEMP 35.8; O2SAT 93
[2020-12-17] MEDS: Ondansetron ODT 4 MG Tablet PO (04:01)
--- NOTE | 2020-12-17 04:06 | NURSING ---
Taken off bedpan. Scant amount of tea colored urine in bedpan. Brief dry. Calmoseptine applied to buttocks. Zofran administered per dr order for c/o nausea. Offered ice chips, genie corby, and/or saltines and pt declines all options. Call light w/ in reach.
[2020-12-17] MEDS: APIXABAN 2.5 MG TABLET PO ×2 (06:15→18:07)
[2020-12-17] MEDS: Menthol/Lanolin/Calamine/Znox 113 GM Tube 1 APPLIC TOPICAL ×2 (06:15→12:37)
[2020-12-17] MEDS: Nystatin Powder 15gm Bottle 1 APPLIC TOPICAL ×2 (06:15→12:37)
[2020-12-17] MEDS: Lisinopril 2.5 MG Tablet PO (06:16)
[2020-12-17] MEDS: Senna/Docusate Sodium 1 Tablet 2 TABLET PO (06:18)
[2020-12-17 06:21] LABS: Bedside Glucose 158 mg/dL (70-110)
[2020-12-17] MEDS: Carvedilol 12.5 MG Tablet PO ×2 (08:26→18:06)
[2020-12-17] MEDS: Amiodarone 200 MG Tablet PO ×2 (08:26→18:06)
[2020-12-17] MEDS: metFORMIN HCl 500 MG Tablet PO (08:26)
[2020-12-17] MEDS: Aspirin E.C. 81 MG Tablet PO (08:26)
--- NOTE | 2020-12-17 09:20 | NURSING ---
Talked with Ryan in Pharmacy looked up policy for oral contrast and metformin interactions. Stated in our policy only need to hold Metformin for 48hrs with IV Contrast.
--- NOTE | 2020-12-17 10:59 | NURSING ---
Off unit for CT scan.
[2020-12-17] MEDS: NYSTATIN 500,000 UNIT/5 ML UDC 500000 UNIT PO ×3 (12:36→21:24)
[2020-12-17 14:49] VITALS: BP 97/69; PULSE 107; RESP 18; TEMP 36.4; O2SAT 94
--- NOTE | 2020-12-17 14:50 | NURSING ---
Incontinent of multiple loose stools after CT scan done.
--- NOTE | 2020-12-17 16:25 | CASEMGMT ---
Social Work BIMS and PHQ-9 completed for MDS assessment. Nicolette Weller, CLAIM BENEFIT SPECIALIST PECAN GATHERER
[2020-12-17 18:08] VITALS: BP 110/63; PULSE 117
[2020-12-17] MEDS: Atorvastatin Calcium 20 MG Tablet PO (21:24)
[2020-12-17] MEDS: MELATONIN 10 MG TABLET PO (21:24)
[2020-12-18 03:28] VITALS: BP 117/62; PULSE 94; RESP 18; TEMP 36.6; O2SAT 95
[2020-12-18] MEDS: Lisinopril 2.5 MG Tablet PO (04:38)
[2020-12-18] MEDS: NYSTATIN 500,000 UNIT/5 ML UDC 500000 UNIT PO ×4 (04:38→22:18)
[2020-12-18] MEDS: APIXABAN 2.5 MG TABLET PO ×2 (04:38→17:20)
[2020-12-18] MEDS: Senna/Docusate Sodium 1 Tablet 2 TABLET PO ×2 (04:38→17:20)
[2020-12-18] MEDS: Menthol/Lanolin/Calamine/Znox 113 GM Tube 1 APPLIC TOPICAL ×2 (04:43→17:23)
[2020-12-18] MEDS: Nystatin Powder 15gm Bottle 1 APPLIC TOPICAL ×2 (04:43→17:23)
[2020-12-18 06:00] LABS: Absolute Lymphocyte Count 0.47 X10^3/uL (0.83-4.51); Absolute Neutrophil Count 4.9 X10^3/uL (2.0-7.7); Basophil# 0.05 X10^3/uL; Basophil% 0.8 % (0-1); Eosinophil# 0.12 X10^3/uL; Hematocrit 35.9 % (37-47); Hemoglobin 10.5 g/dL (12.0-15.0); Lymphocyte # 0.47 X10^3/ul (4.0); Lymphocyte % 7.8 % (19-41); Mean Corp Hgb Conc 29.2 g/dL (32-36); Mean Corpuscular Hgb 27.6 pg (27.0-32.0); Mean Corpuscular Volume 94.5 fL (81-99); Mean Platelet Vol. 8.9 fl (6.2-12.0); Monocyte# 0.53 X10^3/uL; Monocyte% 8.7 % (0-10); NRBC Flagged by Analyzer 0 % (0-5); Neutrophil # 4.85 X10^3/uL (2.7-7.7); POSITIVE DIFFERENTIAL YES; Platelet Count 293 K/mm3 (150-450); RBC Distribution Width CV 15.9 % (11.6-14.6); RBC Distribution Width SD 55.4 fl (35.1-43.9); White Blood Count 6.1 K/mm3 (4.4-11.0)
[2020-12-18 06:07] LABS: Differential Indicated SCAN CRITERIA MET
[2020-12-18 06:20] LABS: Bedside Glucose 136 mg/dL (70-110)
[2020-12-18 06:23] LABS: Anion Gap 7 (5-15); BUN 21 mg/dL (7-18); Calcium,Total 8.7 mg/dL (8.5-10.1); Chloride 102 mmol/L (98-107); Creatinine, Serum 1.05 mg/dL (0.55-1.02); EST Glomerular Filtration Rate 54 mL/min (>60); Est Glom Filt Rate - Afr Amer 65 mL/min (>60); Estimated Creatinine Clearance 51.27 ml/min; Glucose 136 mg/dL (74-106); Potassium 5.3 mmol/L (3.5-5.1); Sodium Level 133 mmol/L (136-145)
[2020-12-18 06:34] LABS: Differential Comment SCANNED
[2020-12-18] MEDS: Amiodarone 200 MG Tablet PO ×2 (07:57→17:21)
[2020-12-18] MEDS: Aspirin E.C. 81 MG Tablet PO (07:57)
[2020-12-18] MEDS: Carvedilol 12.5 MG Tablet PO ×2 (07:57→17:20)
--- NOTE | 2020-12-18 08:00 | NURSING ---
dr ulloa aware of pt not sleeping well at night & potassium level elevated. new order kayexalate & doxepin, recheck bmp /
[2020-12-18] MEDS: oxyCODONE 5 MG Tablet PO ×3 (08:36→22:13)
[2020-12-18 08:43] VITALS: PULSE 108; RESP 18; O2SAT 94
[2020-12-18] MEDS: Sodium Polystyrene Sulfonate 15 GM/60 ML UDC 30 GM PO (11:22)
[2020-12-18] MEDS: Tuberculin,Purif.prot.deriv. 50 TU/ML Vial 5 ML ID (11:22)
--- NOTE | 2020-12-18 13:58 | PCM.PN.PAL ---
Progress Note- Hospice Date: 12/18/20 Subjective: Irena Johnston is an 80 year old female, known to palliative medicine from a consult in the hospital on 12/07/20, now in Transitional Care Unit for PT/OT to address leg weakness. Patient is hoping to return home. She reports that therapy has been difficult due to rectal pain. A CT scan was completed yesterday and did not show a cause of this. She states exam has been completed and no cause was found. Taking pain meds inconsistently - everything (Tylenol, Ultram, oxycodone) are listed as PRN only. She was able to walk 4 steps with a walker today, which is progress - but this flared her pain. She also complains of decreased appetite, sometimes nausea, and diarrhea. She states she is having multiple BM's per day, and this seemed to have been the case earlier during her hospital stay, but now her last documented BM was on 12/14... although note is made that a Senna dose was held due to loose stools yesterday. She complains of trouble sleeping - difficulty with both falling and staying asleep. She is a light sleeper and the noises in the [place] can wake her. She has discussed this with TCU staff, and doxepine dose is going to be increased tonight. She admits to feeling down/frustrated and maybe even depressed. PRN use was reviewed. She has been taking PRN Tylenol 1300mg twice a day most days. She has been averaging 1-3 Ultram/day, and 1-2 oxycodone a day. She does not have anything scheduled. She mentioned taking 6 Advil for pain at home, but only getting 4 Advil here, but I suspect that she is referencing Tylenol, as she has no Advil order. Social History: former smoker; lives with son Allen in [place], [place]. DNRCC-A ROS: denies abdominal pain, headaches, leg pain. + bilateral leg weakness. - dysuria. - fevers/chills Objective: Vital Signs Temp 97.9 F 12/18/20 03:28 Pulse 108 H 12/18/20 08:43 Resp 18 12/18/20 08:43 BP 117/62 12/18/20 03:28 Pulse Ox 94 12/18/20 08:43 Intake & Output 12/16/20 12/17/20 12/18/20 23:59 23:59 23:59 Intake Total 600 / 600 420 / 420 480 / 480 Output Total 100 / 100 600 / 600 Balance 500 / 500 420 / 420 -120 / -120 Weight: 76 kg 84.55 kg Intake: Oral 600 / 600 420 / 420 480 / 480 Output: Urine 100 / 100 600 / 600 Other: Incontinent Amount Small Large 12/18/20 12/18/20 12/18/20 05:34 05:34 06:15 RBC 3.80 L Hgb 10.5 L Hct 35.9 L MCHC 29.2 L RDW Std Deviation 55.4 H RDW Coeff of Deborah 15.9 H Neut % (Auto) 80.0 H Lymph % (Auto) 7.8 L Absolute Lymphs (auto) 0.47 L Sodium 133 L Potassium 5.3 H BUN 21 H Creatinine 1.05 H Est GFR (MDRD) Non-Af 54 L Glucose 136 H POC Glucose 136 H Current Medications Acetaminophen (Acetaminophen 325 Mg Tablet) 1,300 mg PO TID PRN PRN PRN Reason: Pain Score 1-3 Last Admin: 12/17/20 23:22 Dose: 1,300 mg Documented by: Amiodarone HCl (Amiodarone 200 Mg Tablet) [facility] Last Admin: 12/18/20 07:57 Dose: 200 mg Documented by: Apixaban (Apixaban 2.5 Mg Tablet) 2.5 mg PO BID [facility] Last Admin: 12/18/20 04:38 Dose: 2.5 mg Documented by: Aspirin (Aspirin E.C. 81 Mg Tablet) 81 mg [facility] Last Admin: 12/18/20 07:57 Dose: 81 mg Documented by: Atorvastatin Calcium (Atorvastatin Calcium 20 Mg Tablet) 20 mg PO QHS [facility] Last Admin: 12/17/20 21:24 Dose: 20 mg Documented by: Bisacodyl (Bisacodyl 5 Mg Tablet) 10 mg PO DAILY PRN PRN Reason: Constipation Last Admin: 12/11/20 11:17 Dose: 10 mg Documented by: Calamine/Phenol (Menthol/Lanolin/Calamine/Znox 113 Gm Tube) 1 applic TOPICAL BID [facility]; Protocol Last Admin: 12/18/20 04:43 Dose: 1 applicatio Documented by: Carvedilol (Carvedilol 12.5 Mg Tablet) 12.5 mg PO BIDCM [facility] Last Admin: 12/18/20 07:57 Dose: 12.5 mg Documented by: Doxepin HCl (Doxepin Hydrochloride 10 Mg Capsule) 10 mg PO QHS [facility] Hydrocortisone Acetate (Hydrocortisone 25 Mg Suppository) 25 mg RC BID PRN PRN PRN Reason: Hemorrhoids Last Admin: 12/14/20 14:40 Dose: 25 mg Documented by: Lisinopril (Lisinopril 2.5 Mg Tablet) 2.5 mg PO DAILY [facility] Last Admin: 12/18/20 04:38 Dose: 2.5 mg Documented by: Magnesium Hydroxide (Magnesium Hydroxide 30 Ml Udc) 30 ml PO DAILY PRN PRN Reason: Constipation Metformin HCl (Metformin Hcl 500 Mg Tablet) 500 [facility] Last Admin: 12/17/20 08:26 Dose: 500 mg Documented by: Nystatin (Nystatin Powder 15gm Bottle) 1 applic TOPICAL BID [facility]; Protocol Last Admin: 12/18/20 04:43 Dose: 1 applicatio Documented by: Nystatin (Nystatin 500,000 Unit/5 Ml Udc) 500,000 unit PO 4X/DAY [facility] Stop: 12/27/20 12:01 Last Admin: 12/18/20 04:38 Dose: 500,000 unit Documented by: Ondansetron HCl (Ondansetron Odt 4 Mg Tablet) 4 mg PO Q8H PRN PRN PRN Reason: NAUSEA Last Admin: 12/17/20 04:01 Dose: 4 mg Documented by: Oxycodone HCl (Oxycodone 5 Mg Tablet) 5 mg PO Q4H PRN PRN PRN Reason: Pain Score 6-10 Last Admin: 12/18/20 08:36 Dose: 5 mg Documented by: Polyethylene Glycol (Polyethylene Glycol 3350 17 Gm Packet) 17 gm PO DAILY [facility] Last Admin: 12/18/20 04:44 Dose: Not Given Documented by: Senna/Docusate Sodium (Senna/Docusate Sodium 1 Tablet) 2 tablet PO BID [facility] Last Admin: 12/18/20 04:38 Dose: 2 tablet Documented by: Sodium Chloride (0.9% Saline Lock 10 Ml Syringe) 10 - 40 ml IV UD PRN PRN Reason: SALINE FLUSH Tramadol HCl (Tramadol 50 Mg Tablet) 50 mg PO Q6H PRN PRN PRN Reason: Pain Score 4-5 Last Admin: 12/16/20 20:43 Dose: 50 mg Documented by: - Physical Exam General: Alert, Cooperative, Well developed, Well nourished HEENT: Atraumatic, - - pupils 3mm and reactive Oral: Moist Mucosa Cardiovascular: Regular rate, Normal S1, Normal S2 Last BM:: 12/14 vs 12/17 (see above) Abdomen: Bowel Sounds Present, Soft, Non Tender, Non-Distended, Obese Psych/Mental Status: - - Tearful at times Assessment/Plan All Active Problems (Last Reviewed 01/11/20 @ 10:32 by Falguni Kline) Encounter for education (Acute) History of hypertension (Acute) History of bladder cancer (Acute) History of type 2 diabetes mellitus (Acute) History of hypercholesterolemia (Acute) New onset atrial fibrillation (Acute) Urinary tract infection (Acute) Prerenal azotemia (Acute) Hyperglycemia due to type 2 diabetes mellitus (Acute) Debility (Acute) Fever (Acute) Rectal pain (Acute) Fecal impaction of colon (Acute) Malaise (Acute) Atrial fibrillation with rapid ventricular response (Acute) NSTEMI (non-ST elevated myocardial infarction) (Acute) 80 year old female with Stage 3 endometrial cancer, afib, leg weakness 1. Leg weakness - undergoing PT/OT. It sounds like rectal pain may be preventing her from fully participating. I had discussed potentially adding fentanyl patches, as I think she may do better with scheduled pain medication - however, based on utilization of PRN opioids, even the 12mcg dose would be higher than she has been getting. Could achieve a lower dose with methadone, but that would take 4-5 days for effect, and I would prefer to try to achieve pain control quicker, so that she can benefit from her time on the skilled unit. Plan schedule Tylenol 1300mg BID, change PRN Tylenol to once/day PRN so as not to dose > 4g/day, and schedule oxycodone 5mg TID. Continue PRN Ultram and oxycodone. Once pain better controlled and opioid needs are known, could rotate to a more convenient long acting medication. 2. Insomnia - doxepin already increased, first dose will be tonight. If this is ineffective, would consider rotation to mirtazapine, which could potentially help with insomnia, mood/depression, and poor appetite. Unable to add mirtazapine to doxepin, as they are both TCA's. If doxepin effective and mood is still an issue, consider sertraline 50mg for depression (citalopram best studied in elderly but has interactions with her cardiac meds) 3. Decreased appetite - consider mirtazapine as above, but need to wait to see response to increased dose of doxepin. Could be related to GI issues as well. 4. Nausea - continue PRN Zofran for now. Will assess response to other med changes, and can add something at follow up if needed. 5. Constipation vs diarrhea - patient reports diarrhea but constipation is documented. She did have loose stools while in the hospital, I think she could be confused and remembering that. I will leave the Senna-S order as it, but will adjust if needed at F/U palliative visit, most likely on 12/21. Time 1:14-1:49PM face to face (35 min). Over half of the visit was education/counseling of patient re: options for pain meds, side effects of opioids and other meds, options for insomnia, and review of other changes described above.
[2020-12-18 14:11] VITALS: BP 101/57; PULSE 66; RESP 16; TEMP 35.8; O2SAT 92
--- NOTE | 2020-12-18 15:49 | CASEMGMT ---
Social Work Spoke with pt about progress in therapy and getting out of bed. Pt stated she does not get out of bed much d/t pain. If I lay real still, the pain is manageable. Explained insurance NRD 12/24 and requesting alternative DC plan as they see pt is not progressing much and not getting out of bed. Insurance does not have to approve continued days. Pt expressed understanding. Inquired about wishes - hospice or continuing with therapy. Pt states she isn't ready for hospice and wants to continue with therapy. However, on MDS assessment, pt stated she had thoughts of killing herself the night before. Inquired further about thoughts. Pt denies plan or acting on it. She states she is not sleeping well, she is tired, and not getting better. Validated feelings. Offered to speak with . about sleep meds, nursing changing bed/mattress for comfort, antidepressant - pt agreeable to all suggestions. Notified Dr and nursing. Inquired further about alternative DC plan. Pt agreeable to SNF. Inquired about preference - pt unsure of SNFs. Provided SNF list that are in network with pt insurance, in desired area, and can meet medical needs with quality and resource data. Explained insurance will not pay for SNF. Inquired about private pay or Medicaid. Pt stated her son knows her finances and gave permission for SW to contact son for further details. Will continue to follow. Nicolette Weller, SHELDON ELIASW
[2020-12-18] MEDS: Acetaminophen 325 MG Tablet 1300 MG PO (17:20)
--- NOTE | 2020-12-18 17:42 | NURSING ---
palliative MD here today & ordered scheduled oxyir, tylenol, & recommending remeron. dr ulloa in and reviewed palliative note and changed doxpein to remeron. pt updated.
--- NOTE | 2020-12-18 17:58 | NURSING ---
pt son updated regarding CT scan results showing no reason for rectal pain & palliative MD orders for pain meds. son voiced concern regarding narcotics can cause delirium and constipation. he also would like other testing done while pt here to determine what is causing this rectal pain, asking about colonoscopy.
[2020-12-18] MEDS: Mirtazapine 15 MG Tablet 7.5 MG PO (22:13)
[2020-12-18] MEDS: Atorvastatin Calcium 20 MG Tablet PO (22:13)
[2020-12-19] MEDS: APIXABAN 2.5 MG TABLET PO ×2 (05:18→17:55)
[2020-12-19] MEDS: Nystatin Powder 15gm Bottle 1 APPLIC TOPICAL ×2 (05:18→17:56)
[2020-12-19] MEDS: Senna/Docusate Sodium 1 Tablet 2 TABLET PO (05:19)
[2020-12-19] MEDS: Menthol/Lanolin/Calamine/Znox 113 GM Tube 1 APPLIC TOPICAL ×2 (05:19→17:55)
[2020-12-19] MEDS: Acetaminophen 325 MG Tablet 1300 MG PO ×2 (05:20→17:51)
[2020-12-19] MEDS: Lisinopril 2.5 MG Tablet PO (05:21)
[2020-12-19] MEDS: oxyCODONE 5 MG Tablet PO ×3 (05:24→22:16)
[2020-12-19 05:30] VITALS: BP 146/77; PULSE 100; RESP 16; TEMP 36.6; O2SAT 90
[2020-12-19 06:21] LABS: Bedside Glucose 127 mg/dL (70-110)
[2020-12-19 06:31] LABS: Anion Gap 6 (5-15); BUN 15 mg/dL (7-18); BUN/Creat Ratio 16.9 RATIO (10-20); Calcium,Total 8.4 mg/dL (8.5-10.1); Chloride 104 mmol/L (98-107); Creatinine, Serum 0.88 mg/dL (0.55-1.02); EST Glomerular Filtration Rate 65 mL/min (>60); Est Glom Filt Rate - Afr Amer 79 mL/min (>60); Estimated Creatinine Clearance 68.06 ml/min; Glucose 113 mg/dL (74-106); Potassium 4.9 mmol/L (3.5-5.1); Sodium Level 135 mmol/L (136-145)
[2020-12-19] MEDS: Aspirin E.C. 81 MG Tablet PO (08:31)
[2020-12-19] MEDS: Amiodarone 200 MG Tablet PO ×2 (08:31→17:54)
[2020-12-19] MEDS: Carvedilol 12.5 MG Tablet PO ×2 (08:31→17:54)
[2020-12-19] MEDS: NYSTATIN 500,000 UNIT/5 ML UDC 500000 UNIT PO ×4 (08:32→22:16)
--- NOTE | 2020-12-19 13:07 | CASEMGMT ---
Social Work IDT met with patient and son via conference call for care plan meeting. Discussed patient's progress in therapy and nursing. Reiterated conversation held between pt and this worker yesterday. Son understands and agreeable to SNF as well, if needed. Emailed same list of SNFs and encouraged pt to have several choices by 12/21 for SW to refer to them and have outcomes by insurance update 12/24. Pt is out of isolation 12/24. Will continue to follow. SHELDON JamaW
[2020-12-19 15:06] VITALS: BP 89/62; PULSE 69; RESP 16; TEMP 36.4; O2SAT 95
[2020-12-19] MEDS: metFORMIN HCl 500 MG Tablet PO (17:54)
[2020-12-19] MEDS: Mirtazapine 15 MG Tablet 7.5 MG PO (22:17)
[2020-12-19] MEDS: Atorvastatin Calcium 20 MG Tablet PO (22:17)
[2020-12-20 04:00] VITALS: BP 128/57; RESP 16; TEMP 36.7
[2020-12-20] MEDS: Nystatin Powder 15gm Bottle 1 APPLIC TOPICAL ×2 (06:06→16:36)
[2020-12-20] MEDS: Menthol/Lanolin/Calamine/Znox 113 GM Tube 1 APPLIC TOPICAL ×2 (06:06→16:37)
[2020-12-20] MEDS: Polyethylene Glycol 3350 17 GM PACKET PO (06:06)
[2020-12-20] MEDS: Acetaminophen 325 MG Tablet 1300 MG PO ×2 (06:07→16:36)
[2020-12-20] MEDS: Lisinopril 2.5 MG Tablet PO (06:07)
[2020-12-20] MEDS: Senna/Docusate Sodium 1 Tablet 2 TABLET PO ×2 (06:07→16:35)
[2020-12-20] MEDS: APIXABAN 2.5 MG TABLET PO ×2 (06:08→16:34)
[2020-12-20] MEDS: NYSTATIN 500,000 UNIT/5 ML UDC 500000 UNIT PO ×4 (06:14→22:26)
[2020-12-20] MEDS: oxyCODONE 5 MG Tablet PO ×3 (06:18→22:22)
[2020-12-20 06:26] LABS: Bedside Glucose 88 mg/dL (70-110)
[2020-12-20] MEDS: metFORMIN HCl 500 MG Tablet PO ×2 (08:31→16:36)
[2020-12-20] MEDS: Carvedilol 12.5 MG Tablet PO ×2 (08:31→16:35)
[2020-12-20] MEDS: Amiodarone 200 MG Tablet PO ×2 (08:31→16:35)
[2020-12-20] MEDS: Aspirin E.C. 81 MG Tablet PO (08:31)
--- NOTE | 2020-12-20 09:42 | MDS.RN ---
Information for the mds was obtained from review of the clinical record, interview of resident, staff, and direct observation of resident's care.
--- NOTE | 2020-12-20 13:33 | CASEMGMT ---
Social Work Pt's son, Johnathan, contacted SW to inquire about detailed information for SNF placement for pt. Spoke with son at length and explained in depth about insurance updates here, when LCD issued, no insurance coverage for room and board at another SNF but could have Part B coverage for therapy, to choose in network facilities, 30 days of payment required initially, utilize Medicare.gov to research SNFs, explained star ratings, explained difference between nonskilled and skill HHC, [place] and SNF. Son appreciative of information and time from SW. Emailed list of [facility] SNFs per son request along with a list of potential questions to ask SNFs. Son stated he will speak with brother this weekend and then provide SW with list of choices to refer to but [facility] is one they have agreed on already. Referral made to [facility]. SW to continue to follow. Nicolette Weller, SHELDON ARROW POINT ATTACHER
[2020-12-20 14:50] VITALS: BP 84/54; PULSE 62; RESP 16; TEMP 36.4; O2SAT 98
[2020-12-20 16:31] VITALS: BP 107/63
[2020-12-20 20:28] VITALS: PULSE 76; RESP 16
[2020-12-20] MEDS: Atorvastatin Calcium 20 MG Tablet PO (22:23)
[2020-12-20] MEDS: Mirtazapine 15 MG Tablet 7.5 MG PO (22:23)
[2020-12-21 04:00] VITALS: BP 115/64; PULSE 73; RESP 18; TEMP 36.1; O2SAT 93
[2020-12-21] MEDS: Menthol/Lanolin/Calamine/Znox 113 GM Tube 1 APPLIC TOPICAL ×2 (05:11→16:58)
[2020-12-21] MEDS: APIXABAN 2.5 MG TABLET PO ×2 (05:11→16:55)
[2020-12-21] MEDS: Polyethylene Glycol 3350 17 GM PACKET PO (05:11)
[2020-12-21] MEDS: Nystatin Powder 15gm Bottle 1 APPLIC TOPICAL ×2 (05:12→16:58)
[2020-12-21] MEDS: Senna/Docusate Sodium 1 Tablet 2 TABLET PO ×2 (05:12→16:55)
[2020-12-21] MEDS: Acetaminophen 325 MG Tablet 1300 MG PO ×2 (05:12→16:56)
[2020-12-21] MEDS: NYSTATIN 500,000 UNIT/5 ML UDC 500000 UNIT PO ×4 (05:12→23:07)
[2020-12-21] MEDS: oxyCODONE 5 MG Tablet PO ×3 (05:18→23:08)
[2020-12-21] MEDS: Lisinopril 2.5 MG Tablet PO (05:23)
[2020-12-21] MEDS: metFORMIN HCl 500 MG Tablet PO ×2 (08:13→16:55)
[2020-12-21] MEDS: Amiodarone 200 MG Tablet PO ×2 (08:13→16:55)
[2020-12-21] MEDS: Carvedilol 12.5 MG Tablet PO ×2 (08:13→16:54)
[2020-12-21] MEDS: Aspirin E.C. 81 MG Tablet PO (08:13)
[2020-12-21 13:28] VITALS: BP 94/57; PULSE 83; RESP 18; TEMP 36.5; O2SAT 92
[2020-12-21 16:52] VITALS: BP 113/51; PULSE 99; O2SAT 100
[2020-12-21] MEDS: Mirtazapine 15 MG Tablet 7.5 MG PO (23:07)
[2020-12-21] MEDS: Atorvastatin Calcium 20 MG Tablet PO (23:10)
[2020-12-22 04:00] VITALS: BP 103/65; PULSE 103; RESP 16; TEMP 36.8; O2SAT 97
[2020-12-22] MEDS: Nystatin Powder 15gm Bottle 1 APPLIC TOPICAL ×2 (05:35→17:33)
[2020-12-22] MEDS: Menthol/Lanolin/Calamine/Znox 113 GM Tube 1 APPLIC TOPICAL ×2 (05:35→17:32)
[2020-12-22] MEDS: NYSTATIN 500,000 UNIT/5 ML UDC 500000 UNIT PO ×4 (05:38→21:25)
[2020-12-22] MEDS: oxyCODONE 5 MG Tablet PO ×3 (05:38→21:23)
[2020-12-22] MEDS: APIXABAN 2.5 MG TABLET PO ×2 (05:41→17:32)
[2020-12-22] MEDS: Acetaminophen 325 MG Tablet 1300 MG PO ×2 (05:41→17:32)
[2020-12-22] MEDS: Lisinopril 2.5 MG Tablet PO (05:41)
[2020-12-22] MEDS: Ondansetron ODT 4 MG Tablet PO (06:12)
[2020-12-22 06:25] LABS: Bedside Glucose 108 mg/dL (70-110)
[2020-12-22] MEDS: Carvedilol 12.5 MG Tablet PO ×2 (08:49→17:32)
[2020-12-22] MEDS: Aspirin E.C. 81 MG Tablet PO (08:49)
[2020-12-22] MEDS: Amiodarone 200 MG Tablet PO ×2 (08:49→17:32)
[2020-12-22] MEDS: metFORMIN HCl 500 MG Tablet PO ×2 (08:49→17:32)
[2020-12-22 11:01] VITALS: PULSE 73; RESP 20; O2SAT 90
[2020-12-22 15:39] VITALS: BP 94/64; PULSE 77; RESP 18; TEMP 36.4; O2SAT 98
[2020-12-22] MEDS: Atorvastatin Calcium 20 MG Tablet PO (21:24)
[2020-12-22] MEDS: Mirtazapine 15 MG Tablet 7.5 MG PO (21:25)
[2020-12-23 04:00] VITALS: BP 115/63; PULSE 76; RESP 16
[2020-12-23] MEDS: Menthol/Lanolin/Calamine/Znox 113 GM Tube 1 APPLIC TOPICAL ×2 (05:37→16:28)
[2020-12-23] MEDS: APIXABAN 2.5 MG TABLET PO ×2 (05:38→16:28)
[2020-12-23] MEDS: Nystatin Powder 15gm Bottle 1 APPLIC TOPICAL ×2 (05:39→16:29)
[2020-12-23] MEDS: NYSTATIN 500,000 UNIT/5 ML UDC 500000 UNIT PO ×4 (05:39→21:02)
[2020-12-23] MEDS: Polyethylene Glycol 3350 17 GM PACKET PO (05:39)
[2020-12-23] MEDS: Senna/Docusate Sodium 1 Tablet 2 TABLET PO (05:40)
[2020-12-23] MEDS: Acetaminophen 325 MG Tablet 1300 MG PO ×2 (05:40→16:28)
[2020-12-23] MEDS: Lisinopril 2.5 MG Tablet PO (05:41)
[2020-12-23] MEDS: oxyCODONE 5 MG Tablet PO ×3 (05:45→21:01)
[2020-12-23 06:30] LABS: Bedside Glucose 131 mg/dL (70-110)
[2020-12-23 06:32] VITALS: TEMP 36.3
[2020-12-23] MEDS: Amiodarone 200 MG Tablet PO ×2 (07:55→16:28)
[2020-12-23] MEDS: Aspirin E.C. 81 MG Tablet PO (07:55)
[2020-12-23] MEDS: metFORMIN HCl 500 MG Tablet PO ×2 (07:55→16:28)
[2020-12-23] MEDS: Carvedilol 12.5 MG Tablet PO ×2 (07:55→16:28)
[2020-12-23 14:26] VITALS: BP 88/49; PULSE 107; RESP 16; TEMP 36.8; O2SAT 90
[2020-12-23 16:24] VITALS: BP 95/65; PULSE 114
[2020-12-23] MEDS: Bisacodyl 5 MG Tablet 10 MG PO (16:30)
--- NOTE | 2020-12-23 20:20 | NURSING ---
Pt c/o rectal pain, refused offer of anusol supp, states she is afraid it will make her have a bm. Explained that it is for inflammation and might help with the pain, also c/o bloating, abdomen noted to be distended, refused offer of bryant baxter and coke. Repositioned in bed for comfort.
[2020-12-23 20:21] VITALS: O2SAT 93
[2020-12-23] MEDS: Mirtazapine 15 MG Tablet 7.5 MG PO (21:02)
[2020-12-23] MEDS: Atorvastatin Calcium 20 MG Tablet PO (21:02)
[2020-12-23] MEDS: Ondansetron ODT 4 MG Tablet PO (21:36)
[2020-12-24] MEDS: Polyethylene Glycol 3350 17 GM PACKET PO (05:12)
[2020-12-24] MEDS: Acetaminophen 325 MG Tablet 1300 MG PO ×2 (05:12→16:54)
[2020-12-24] MEDS: oxyCODONE 5 MG Tablet PO ×3 (05:12→23:40)
[2020-12-24] MEDS: Lisinopril 2.5 MG Tablet PO (05:13)
[2020-12-24] MEDS: APIXABAN 2.5 MG TABLET PO ×2 (05:13→16:54)
[2020-12-24] MEDS: Senna/Docusate Sodium 1 Tablet 2 TABLET PO ×2 (05:13→16:54)
[2020-12-24] MEDS: Menthol/Lanolin/Calamine/Znox 113 GM Tube 1 APPLIC TOPICAL ×2 (05:14→16:53)
[2020-12-24] MEDS: Nystatin Powder 15gm Bottle 1 APPLIC TOPICAL ×2 (05:15→13:08)
[2020-12-24 05:16] VITALS: BP 104/62; PULSE 105; RESP 19; TEMP 37.1; O2SAT 94
[2020-12-24 06:20] LABS: Bedside Glucose 118 mg/dL (70-110)
[2020-12-24] MEDS: Carvedilol 12.5 MG Tablet PO ×2 (08:06→16:53)
[2020-12-24] MEDS: Aspirin E.C. 81 MG Tablet PO (08:06)
[2020-12-24] MEDS: Amiodarone 200 MG Tablet PO ×2 (08:06→16:54)
[2020-12-24] MEDS: metFORMIN HCl 500 MG Tablet PO ×2 (08:06→16:53)
--- NOTE | 2020-12-24 08:43 | CASEMGMT ---
Addendum entered by Nicolette Weller 12/24/20 11:24: Spoke with [facility] - requesting updated notes from weekend but indicated they can accept pt. Will await outcome from insurance update this date. Original Note: Social Work Son provided several SNF options via email. Referred to [facility] in [place] and [facility]. Left message with [facility] on acceptance/denial. Will continue to follow. Nicolette Weller, SHELDON AUTO CRANE DRIVER
[2020-12-24] MEDS: NYSTATIN 500,000 UNIT/5 ML UDC 500000 UNIT PO ×2 (13:03→16:54)
[2020-12-24 13:45] VITALS: BP 124/69; PULSE 89; RESP 18; TEMP 36.7; O2SAT 100
--- NOTE | 2020-12-24 17:20 | PN.PALL_ITS ---
Progress Note- Hospice Date: 12/24/20 Subjective: Patient reports that pain is somewhat improved with the oxycodone TID, but still an issue. It feels like a burning wood drilling machine operator her rectal area. I asked if it started after her hysterectomy, and she told me yes, but after a phone call update with her son, he stated that she did not have rectal pain after the surgery, but that she did have numbness. Irena states there does not seem to be a pattern to the pain - sometimes it hurts with movement, sometimes not. Someti mes sitting makes it worse, sometimes not. She does relate that having a bowel movement does NOT increase the pain. She also complains of nausea in the AM when given that pile of pills - she attributes it to having to take so many pills at once. She does report that she is sleeping better with the recent medication changes. Appetite has been down - generally eating only 25-50%. Phone call to son Allen with update. He expresses frustration that they aren't running all the tests to get to the bottom of this (see assessment and plan for more details of discussion. system safety manager has been in contact with son regarding ECF placement, as he realizes that he won't be able to take her back home. He works second shift. She is tearful re: the weakness, not improving with therapy, not being able to return home. Objective: Vital Signs Temp 98.1 F 12/24/20 13:45 Pulse 89 12/24/20 13:45 Resp 18 12/24/20 13:45 BP 124/69 H 12/24/20 13:45 Pulse Ox 100 12/24/20 13:45 Intake & Output 12/22/20 12/23/20 12/24/20 23:59 23:59 23:59 Intake Total 950 / 950 660 / 660 360 / 360 Output Total 200 / 200 Balance 750 / 750 660 / 660 360 / 360 Intake: Oral 950 / 950 660 / 660 360 / 360 Output: Urine 200 / 200 Other: Incontinent Amount Moderate Incontinent Amount Urine #2 Large Number of Bowel Movements 1 1 12/24/20 06:12 POC Glucose 118 H Current Medications Acetaminophen (Acetaminophen 325 Mg Tablet) 1,300 mg PO DAILY PRN PRN PRN Reason: Pain Score 1-3 Acetaminophen (Acetaminophen 325 Mg Tablet) 1,300 mg PO Q12 LUL Last Admin: 12/24/20 16:54 Dose: 1,300 mg Documented by: Amiodarone HCl ([facility] 200 Mg [facility]t) [facility] Admin: 12/24/20 16:54 Dose: 200 mg Documented by: Apixaban (Apixaban 2.5 Mg Tablet) 2.5 mg PO BID [facility] Last Admin: 12/24/20 16:54 Dose: 2.5 mg Documented by: Aspirin (Aspirin E.C. 81 Mg Tablet) [facility] Last Admin: 12/24/20 08:06 Dose: 81 mg Documented by: Atorvastatin Calcium (Atorvastatin Calcium 20 Mg Tablet) 20 mg PO QHS [facility] Last Admin: 12/23/20 21:02 Dose: 20 mg Documented by: Bisacodyl (Bisacodyl 5 Mg Tablet) 10 mg PO DAILY PRN PRN Reason: Constipation Last Admin: 12/23/20 16:30 Dose: 10 mg Documented by: Calamine/Phenol (Menthol/Lanolin/Calamine/Znox 113 Gm Tube) 1 applic TOPICAL BID [facility]; Protocol Last Admin: 12/24/20 16:53 Dose: 1 applicatio Documented by: Carvedilol (Carvedilol 12.5 Mg Tablet) [facility] Last Admin: 12/24/20 16:53 Dose: 12.5 mg Documented by: Hydrocortisone Acetate (Hydrocortisone 25 Mg Suppository) 25 mg RC BID PRN PRN PRN Reason: Hemorrhoids Last Admin: 12/14/20 14:40 Dose: 25 mg Documented by: Lisinopril (Lisinopril 2.5 Mg Tablet) 2.5 mg PO DAILY [facility] Last Admin: 12/24/20 05:13 Dose: 2.5 mg Documented by: Magnesium Hydroxide (Magnesium Hydroxide 30 Ml Udc) 30 ml PO DAILY PRN PRN Reason: Constipation Metformin HCl (Metformin Hcl 500 Mg Tablet) [facility] Last Admin: 12/24/20 16:53 Dose: 500 mg Documented by: Mirtazapine (Mirtazapine 15 Mg Tablet) 7.5 mg PO QHS [facility] Last Admin: 12/23/20 21:02 Dose: 7.5 mg Documented by: Nystatin (Nystatin Powder 15gm Bottle) 1 applic TOPICAL BID [facility]; Protocol Last Admin: 12/24/20 13:08 Dose: 1 applicatio Documented by: Nystatin (Nystatin 500,000 Unit/5 Ml Udc) 500,000 unit PO 4X/DAY [facility] Stop: 12/27/20 12:01 Last Admin: 12/24/20 16:54 Dose: 500,000 unit Documented by: Ondansetron HCl (Ondansetron Odt 4 Mg Tablet) 4 mg PO Q8H PRN PRN PRN Reason: NAUSEA Last Admin: 12/23/20 21:36 Dose: 4 mg Documented by: Oxycodone HCl (Oxycodone 5 Mg Tablet) 5 mg PO Q4H PRN PRN PRN Reason: Pain Score 6-10 Last Admin: 12/18/20 08:36 Dose: 5 mg Documented by: Oxycodone HCl (Oxycodone 5 Mg Tablet) 5 mg PO Q8H [facility] Last Admin: 12/24/20 13:06 Dose: 5 mg Documented by: Polyethylene Glycol (Polyethylene Glycol 3350 17 Gm Packet) 17 gm PO DAILY [facility] Last Admin: 12/24/20 05:12 Dose: 17 gm Documented by: Senna/Docusate Sodium (Senna/Docusate Sodium 1 Tablet) 2 tablet PO BID [facility] Last Admin: 12/24/20 16:54 Dose: 2 tablet Documented by: Sodium Chloride (0.9% Saline Lock 10 Ml Syringe) 10 - 40 ml IV UD PRN PRN Reason: SALINE FLUSH Tramadol HCl (Tramadol 50 Mg Tablet) 50 mg PO Q6H PRN PRN PRN Reason: Pain Score 4-5 Last Admin: 12/16/20 20:43 Dose: 50 mg Documented by: - Physical Exam General: Alert, Oriented x3, Cooperative, Confused - mild confusion - but seems improved vs last week - trouble remembering details of when she had a BM, etc. Assessment/Plan All Active Problems (Last Reviewed 01/11/20 @ 10:32 by Falguni Kline) Encounter for education (Acute) History of hypertension (Acute) History of bladder cancer (Acute) History of type 2 diabetes mellitus (Acute) History of hypercholesterolemia (Acute) New onset atrial fibrillation (Acute) Urinary tract infection (Acute) Prerenal azotemia (Acute) Hyperglycemia due to type 2 diabetes mellitus (Acute) Debility (Acute) Fever (Acute) Rectal pain (Acute) Fecal impaction of colon (Acute) Malaise (Acute) Atrial fibrillation with rapid ventricular response (Acute) NSTEMI (non-ST elevated myocardial infarction) (Acute) 80 year old female with Stage 3 endometrial cancer, afib, leg weakness 1. Leg weakness - undergoing PT/OT, has not been improving thus far. Some days, her pain is interfering with her ability to participate in PT, but other days she does not have pain and still does not progress. Given her lack of improvement, her significant functional decline, and her decreased appetite, and her decision last year to not pursue aggressive chemotherapy for her cancer, I think she may be hospice appropriate. Long conversation with her son, he is a little resistant to discussion of her decline and keeps asking why they aren't getting to the bottom of her weakness. Discussed that she has had appropriate testing, that this is a common course that we see - that she has had weakness for a long time but was able to just get by until recently when her weakness progressed to the point that it became much more evident. Discussed home vs. ECF placement. He acts as if he hasn't heard any of this from the TCU, but there is documentation of calls from case management and I discussed the case with Dr. Lewis who has been in contact with the son as well and is in agreement with above. 2. Rectal pain - I suspect this could be neuropathic from the prior hysterectomy for her cancer. Offered trial of Lyrica, patient and son agree. Continue oxycodone for now as well. Will start at 50mg and titrate up if needed. If this is not helpful, or not tolerated, will consider a trial of methadone. Son expresses concern about the pain meds causing her increased confusion, but at the same time expresses dissatisfaction that her pain is not controlled. Discussed that neuropathic pain can be very difficult to control, and that we may have to weigh risks and benefits of pain meds. Continue scheduled Tylenol 1300mg BID, change PRN Tylenol to once/day PRN so as not to dose > 4g/day and scheduled oxycodone 5mg TID. Continue PRN Ultram and oxycodone. Once pain better controlled and opioid needs are known, could rotate to a more convenient long acting medication. 2. Insomnia - good response to mirtazapine 3. Decreased appetite - mirtazapine started 12/23, will follow for response. Could be related to GI issues as well. 4. Nausea - continue PRN Zofran for now. Will assess response to other med changes, and can add something at follow up if needed. Will review meds, may be able to change the timing of some to help alleviate the AM pill burden. If she eventually elects hospice, consider stopping amiodarone, suspect she could be having side effects from this. 5. Constipation vs diarrhea - having BM q1-2 days, no pain. Continue Senna-S Time 4:10-5:22PM, over half of visit education and counseling including long phone conversation with son. Discussed that workup has been appropriate, that often there is not a definitive cause of weakness but rather a gradual progression of weakness and other symptoms due to overall multifactoral decline. Discussed options for pain control, reviewed side effects of Lyrica. Son asks about a nerve block which I told him is not indicated at this time without knowing cause of pain but may be a consideration in the future. Discussed home vs. ECF, Passport services, prognosis could be a few months if she doesn't start eating better (he thinks this is because meals are being given too close here and she hasn't had time to work up an appetite, but discussed this can be another sign of decline). Plan follow up for the Lyrica, and will keep discussions ongoing with the son - I really feel she would qualify and benefit from hospice, but it was not clear from my discussion with him and review of case management notes as to whether it would possibly be a skilled stay (probably not, but he wasn't clear), so I didn't want to muddy the issue with discussion of hospice until knowing details re: ECF. Will reach out to case management to clarify/confirm that ECF would be residential, and will follow up with son Alfredo.
[2020-12-24] MEDS: Pregabalin 50 MG Capsule PO (20:21)
[2020-12-24] MEDS: Atorvastatin Calcium 20 MG Tablet PO (23:41)
[2020-12-24] MEDS: Mirtazapine 15 MG Tablet 7.5 MG PO (23:41)
[2020-12-25 05:50] LABS: Absolute Lymphocyte Count 0.54 X10^3/uL (0.83-4.51); Absolute Neutrophil Count 4.7 X10^3/uL (2.0-7.7); Basophil# 0.04 X10^3/uL; Basophil% 0.6 % (0-1); Eosinophil# 0.18 X10^3/uL; Eosinophils% 2.9 % (0-5); Hematocrit 38.3 % (37-47); Lymphocyte # 0.54 X10^3/ul (4.0); Lymphocyte % 8.7 % (19-41); Mean Corp Hgb Conc 28.7 g/dL (32-36); Mean Corpuscular Hgb 28.2 pg (27.0-32.0); Mean Corpuscular Volume 98.2 fL (81-99); Mean Platelet Vol. 8.9 fl (6.2-12.0); Monocyte% 11.3 % (0-10); NRBC Flagged by Analyzer 0 % (0-5); Neutrophil # 4.71 X10^3/uL (2.7-7.7); POSITIVE DIFFERENTIAL YES; Platelet Count 298 K/mm3 (150-450); RBC Distribution Width CV 16.2 % (11.6-14.6); RBC Distribution Width SD 58.5 fl (35.1-43.9); White Blood Count 6.2 K/mm3 (4.4-11.0)
[2020-12-25 06:06] LABS: Differential Indicated SCAN CRITERIA MET
[2020-12-25 06:26] LABS: Bedside Glucose 89 mg/dL (70-110)
[2020-12-25 06:34] LABS: Anion Gap 4 (5-15); BUN 24 mg/dL (7-18); BUN/Creat Ratio 23.3 RATIO (10-20); Calcium,Total 8.5 mg/dL (8.5-10.1); Chloride 102 mmol/L (98-107); Creatinine, Serum 1.03 mg/dL (0.55-1.02); EST Glomerular Filtration Rate 55 mL/min (>60); Est Glom Filt Rate - Afr Amer 66 mL/min (>60); Estimated Creatinine Clearance 58.15 ml/min; Glucose 96 mg/dL (74-106); Potassium 6.1 mmol/L (3.5-5.1); Sodium Level 134 mmol/L (136-145)
--- NOTE | 2020-12-25 06:40 | NURSING ---
Notified Dr. Lewis of critical K+ at 6.1 called per lab. Awaiting new orders. Pt refused Miralax, Senna, and Nystatin S+S this am.
[2020-12-25] MEDS: Pregabalin 50 MG Capsule PO ×2 (06:44→17:21)
[2020-12-25] MEDS: Nystatin Powder 15gm Bottle 1 APPLIC TOPICAL ×2 (06:46→17:21)
[2020-12-25] MEDS: Menthol/Lanolin/Calamine/Znox 113 GM Tube 1 APPLIC TOPICAL ×2 (06:46→17:21)
[2020-12-25] MEDS: Lisinopril 2.5 MG Tablet PO (06:46)
[2020-12-25] MEDS: Acetaminophen 325 MG Tablet 1300 MG PO ×2 (06:47→17:21)
[2020-12-25] MEDS: APIXABAN 2.5 MG TABLET PO ×2 (06:48→17:21)
[2020-12-25] MEDS: oxyCODONE 5 MG Tablet PO ×3 (06:50→21:46)
[2020-12-25 06:52] VITALS: BP 109/54; PULSE 102; RESP 16; TEMP 36.3; O2SAT 93
[2020-12-25] MEDS: Carvedilol 12.5 MG Tablet PO ×2 (08:21→17:20)
[2020-12-25] MEDS: Amiodarone 200 MG Tablet PO ×2 (08:21→17:20)
[2020-12-25] MEDS: Aspirin E.C. 81 MG Tablet PO (08:22)
[2020-12-25] MEDS: metFORMIN HCl 500 MG Tablet PO ×2 (08:22→17:20)
--- NOTE | 2020-12-25 10:09 | CASEMGMT ---
Social Work Spoke with [facility] and they can accept pt. Notified them, pt and both sons that the insurance approved additional days - NRD 12/28 with anticipated LCD. SW to continue to follow. Nicolette Weller, MUSICAL INSTRUMENTS ASSEMBLER DERMATOLOGY NURSE PRACTITIONER
[2020-12-25] MEDS: Sodium Polystyrene Sulfonate 15 GM/60 ML UDC 30 GM PO (11:03)
[2020-12-25 14:22] VITALS: BP 132/69; PULSE 86; RESP 18; TEMP 35.9; O2SAT 96
[2020-12-25] MEDS: NYSTATIN 500,000 UNIT/5 ML UDC 500000 UNIT PO ×2 (17:20→21:48)
[2020-12-25] MEDS: Senna/Docusate Sodium 1 Tablet 2 TABLET PO (17:21)
[2020-12-25] MEDS: Atorvastatin Calcium 20 MG Tablet PO (21:46)
[2020-12-25] MEDS: Mirtazapine 15 MG Tablet 7.5 MG PO (21:47)
[2020-12-26 00:58] VITALS: BP 101/79; PULSE 96; RESP 18; TEMP 37.2; O2SAT 93
[2020-12-26] MEDS: Acetaminophen 325 MG Tablet 1300 MG PO ×2 (06:22→16:40)
[2020-12-26] MEDS: APIXABAN 2.5 MG TABLET PO ×2 (06:23→16:39)
[2020-12-26] MEDS: oxyCODONE 5 MG Tablet PO ×2 (06:23→12:47)
[2020-12-26] MEDS: Lisinopril 2.5 MG Tablet PO (06:23)
[2020-12-26] MEDS: Pregabalin 50 MG Capsule PO ×2 (06:24→16:39)
[2020-12-26 06:26] LABS: Bedside Glucose 150 mg/dL (70-110)
[2020-12-26] MEDS: NYSTATIN 500,000 UNIT/5 ML UDC 500000 UNIT PO (06:26)
[2020-12-26] MEDS: Nystatin Powder 15gm Bottle 1 APPLIC TOPICAL ×2 (06:27→16:41)
[2020-12-26] MEDS: Menthol/Lanolin/Calamine/Znox 113 GM Tube 1 APPLIC TOPICAL ×2 (06:36→16:41)
[2020-12-26 06:46] LABS: Anion Gap 4 (5-15); BUN 23 mg/dL (7-18); BUN/Creat Ratio 20.5 RATIO (10-20); Calcium,Total 8.3 mg/dL (8.5-10.1); Chloride 102 mmol/L (98-107); Creatinine, Serum 1.12 mg/dL (0.55-1.02); EST Glomerular Filtration Rate 50 mL/min (>60); Est Glom Filt Rate - Afr Amer 60 mL/min (>60); Estimated Creatinine Clearance 55.15 ml/min; Glucose 110 mg/dL (74-106); Sodium Level 134 mmol/L (136-145)
--- NOTE | 2020-12-26 07:12 | NURSING ---
pt choked on her nystatin swish and swallow. Coughed for several minutes. Reports that this happens sometimes but today is worse. Very moist but unproductive cough. Was able to calm down after about [address] Lewis for possible CXR.
--- NOTE | 2020-12-26 08:10 | RAD_ITS ---
EXAM: XR CHEST, 2 VIEWS CLINICAL INDICATION: Aspiration. TECHNIQUE: Frontal and lateral views of the chest. This report was created using [employer] report generation technology. COMPARISON: 12/05/2020. FINDINGS: LUNGS AND PLEURAL SPACES: Unremarkable. No consolidation or edema. No pneumothorax. No effusion. HEART: Cardiomegaly. MEDIASTINUM: Central airways and mediastinal contour are unremarkable. BONES/JOINTS: Unremarkable. SOFT TISSUES: Unremarkable. RAD/Chest PA and Lateral IMPRESSION: 1. No acute findings in the chest. 2. No significant interval change when compared to 12/05/2020 Electronically Signed: Kvng Yanez MD at 8:26 EST , Service support ,
[2020-12-26] MEDS: metFORMIN HCl 500 MG Tablet PO ×2 (08:35→16:40)
[2020-12-26] MEDS: Aspirin E.C. 81 MG Tablet PO (08:35)
--- NOTE | 2020-12-26 09:00 | NURSING ---
Pt blood pressure 80/44 Right arm semi fowlers pulse 102 Spo2 90% RA Temp 97.1. Dr. Lewis updated and new order for 1L bolus of Normal saline. Recheck blood pressure after administering. Pt states i just feel tired and want to go for a walk outside for fresh air.. Will continue to monitor call light within reach.
[2020-12-26] MEDS: Amiodarone 200 MG Tablet PO ×2 (09:05→16:39)
[2020-12-26] MEDS: 0.9% Normal Saline 1,000 ML 999 ML IV (09:33)
[2020-12-26] MEDS: Sodium Polystyrene Sulfonate 15 GM/60 ML UDC 30 GM PO (09:36)
[2020-12-26 10:40] VITALS: BP 97/41; PULSE 90; RESP 20; TEMP 36.9; O2SAT 95
--- NOTE | 2020-12-26 10:44 | NURSING ---
NS BOLUS FINISHED FROM HYPOTENSION THIS AM. VS OBTAINED. BP 97/41, HR 90, IRREGULAR. DENIES CP. R' FATIGUED. DENIES PAIN OR CP. R' RESTING, WILL MONITOR. ENCOURAGED TO DRINK/EAT, BUT R' REPORTS POOR APPETITE. CALL LIGHT WITHIN REACH.
[2020-12-26 13:54] VITALS: BP 129/58; PULSE 102; RESP 18; TEMP 36.7; O2SAT 90
[2020-12-26 16:32] VITALS: BP 106/59; PULSE 104
--- NOTE | 2020-12-26 17:58 | NURSING ---
ASKED DR LANZA IF HE WANTED COREG GIVEN THIS EVENING. HOLD PER DR. LANZA. NOTIFIED DR LANZA THAT R' SEEMS TO BE DECLINING, VERY FATIGUED. HAVING DIFFICULTY FEEDING SELF, WEAK. DR. LANZA TO EVAL THIS EVENING. .
[2020-12-26 21:44] VITALS: BP 123/76; PULSE 97; RESP 18; O2SAT 90
[2020-12-26] MEDS: Mirtazapine 15 MG Tablet 7.5 MG PO (21:47)
[2020-12-26] MEDS: Atorvastatin Calcium 20 MG Tablet PO (21:47)
[2020-12-27 04:57] VITALS: BP 119/57; PULSE 59; RESP 18; TEMP 36.8; O2SAT 95
[2020-12-27] MEDS: NYSTATIN 500,000 UNIT/5 ML UDC 500000 UNIT PO (05:05)
[2020-12-27] MEDS: Nystatin Powder 15gm Bottle 1 APPLIC TOPICAL ×2 (05:05→17:03)
[2020-12-27] MEDS: APIXABAN 2.5 MG TABLET PO ×2 (05:05→17:03)
[2020-12-27] MEDS: 0.9% Saline Lock 10 ML Syringe IV ×2 (05:05→17:06)
[2020-12-27] MEDS: Lisinopril 2.5 MG Tablet PO (05:05)
[2020-12-27] MEDS: Acetaminophen 325 MG Tablet 1300 MG PO ×2 (05:05→17:03)
[2020-12-27] MEDS: Menthol/Lanolin/Calamine/Znox 113 GM Tube 1 APPLIC TOPICAL ×2 (05:06→17:03)
[2020-12-27] MEDS: Pregabalin 50 MG Capsule PO ×2 (05:12→17:05)
[2020-12-27 06:24] LABS: Anion Gap 4 (5-15); BUN 21 mg/dL (7-18); BUN/Creat Ratio 24.1 RATIO (10-20); Calcium,Total 7.9 mg/dL (8.5-10.1); Chloride 103 mmol/L (98-107); Creatinine, Serum 0.87 mg/dL (0.55-1.02); EST Glomerular Filtration Rate 66 mL/min (>60); Est Glom Filt Rate - Afr Amer 80 mL/min (>60); Glucose 100 mg/dL (74-106); Potassium 4.9 mmol/L (3.5-5.1); Sodium Level 136 mmol/L (136-145)
[2020-12-27 06:26] LABS: Bedside Glucose 99 mg/dL (70-110)
[2020-12-27] MEDS: metFORMIN HCl 500 MG Tablet PO ×2 (08:10→17:02)
[2020-12-27] MEDS: Carvedilol 12.5 MG Tablet PO ×2 (08:10→17:03)
[2020-12-27] MEDS: Aspirin E.C. 81 MG Tablet PO (08:10)
[2020-12-27] MEDS: Amiodarone 200 MG Tablet PO ×2 (08:10→17:02)
[2020-12-27 14:29] VITALS: BP 105/52; PULSE 92; RESP 12; TEMP 36.7; O2SAT 93
--- NOTE | 2020-12-27 14:59 | CHAPLAIN ---
Type of Pastoral Visit ___ Initial Visit ___ Follow-up Visit ___ On-call Visit ___ General Patient Visit ___ Spiritual Assessment ___ Family Conference ___ Bereavement ___ Rapid Response ___ Code Blue _x__ Other (describe below) Pastoral Care Referral From ___ Patient ___ Family ___ Nurse ___ Physician ___ Manager Maintenance ___ Caretaker Grounds _x__ Other (describe below) Sacrament/Intervention ___ Active listening ___ Anointing ___ Restorationist ___ Bereavement ___ Communion ___ Kalie exploration ___ ___ Life review ___ Prayer ___ Reconciliation ___ Sacrament of Sick ___ Supportive presence ___ Wedding _x__ Other (describe below) Pastoral Comments recommended a visit to this patient by Humidifier Attendant; pt is sleeping and does not awaken to her name at this time
--- NOTE | 2020-12-27 16:17 | CASEMGMT ---
Social Work SW continues to be in consistent correspondence with both sons via phone and email. Continue to answers questions pertaining to DC plans - rehab vs hospice and SNF placement. Sons continue to inquire further about medical information. SW continues to direct them to nursing and the doctor. Dr. Ham from Palliative has conversations with sons as well. Johnathan wants referrals to each facility - [facility], [facility], [facility], [facility] in [place]. Referrals made to all facilities. YOHAN received pricing as well. [place] [facility], [facility], [facility] can accept and are in network with [facility]. [facility] and [facility] are not in network with [facility] - denied. Provided updated information to son. Spoke with pt 12/26 to follow up with wishes as she has declined medically. Inquired if she would like to continue pursuing rehab at a SNF or if she would like comfort care measures with hospice. Pt stated she understands she cannot go home unless she can walk. SW validated and agreed and discussed body is declining and she may continue having difficulty walking. Pt stated well if I can't walk, I want to , I don't want to keep living like this. Confirmed pt's wishes are comfort care with hospice. Pt reiterated wishes and agreed. SW encouraged pt to think about decision over night as she had a bad day and SW to revisit the following day. Pt agreeable. Notified sons via email of conversation and wishes with pt. Explained if pt is electing hospice, she can DC to any SNF - does not have to be in network with insurance. Son, jessy, in for visit 12/27. Met with son 1:1 and reiterated information from final email about SNFs accepting and pt electing hospice; thus she can go to any facility .Son expressed understanding and stated his brother is getting more involved in researching facilitites and what insurance can cover. He would prefer if she go to [facility] where it is closer to him. Explained they can all decide a SNF and notify SW. Visited pt with son present to follow up on wishes. Inquired about rehab or comfort care with hospice. Pt chose hospice services and states she trusts her sons to worry about the rest. Reiteraated to son to notify SW of [facility] and the goal is to have her discharged in the next several days as she no longer wants rehab. Son expressed understanding. Son, johnathan, contacted SW to schedule visit with pt 12/29. Scheduled visit. Explained above information. Son asked if that can be sent in an email for his review. He expressed understanding of choosing any facility but wants to know pricing. Reiterated looking for DC 12/31 for SW to finalize DC plans prior to end of day Thursday. Emailed pricing and accepting facilities again in email per son request. Son expressed understanding of timeline. SW to continue to follow. Nicolette Weller, ENTRY REP TRANSPLANT WORKER
[2020-12-27] MEDS: oxyCODONE 5 MG Tablet PO (22:53)
[2020-12-27] MEDS: Mirtazapine 15 MG Tablet 7.5 MG PO (22:54)
[2020-12-27] MEDS: Atorvastatin Calcium 20 MG Tablet PO (22:54)
--- NOTE | 2020-12-27 23:10 | NURSING ---
This nurse in pt's room and she becomes tearful when discussing visit w/ son that she was living w/ in [place]. Acknowledges continued functional decline. Aware she will dc to a SNF but unsure which facility. Unsure if she will be skilled or private pay. Questions this nurse if she should remain w/ palliative care services or transition to hospice at SNF. Informed pt that decision will need to be made between her and her sons. Discussed hospice vs palliative Medicare benefit and level of support offered to both her and her sons. Emotional support and active listening provided.
[2020-12-28 06:26] LABS: Bedside Glucose 67 mg/dL (70-110)
[2020-12-28 06:30] VITALS: BP 125/71; PULSE 75; RESP 20; TEMP 36.3; O2SAT 91
[2020-12-28] MEDS: oxyCODONE 5 MG Tablet PO (06:34)
[2020-12-28] MEDS: Acetaminophen 325 MG Tablet 1300 MG PO ×2 (06:35→18:10)
[2020-12-28] MEDS: Senna/Docusate Sodium 1 Tablet 2 TABLET PO ×2 (06:35→18:11)
[2020-12-28] MEDS: Pregabalin 50 MG Capsule PO ×2 (06:35→18:10)
[2020-12-28] MEDS: APIXABAN 2.5 MG TABLET PO ×2 (06:36→18:10)
[2020-12-28] MEDS: Lisinopril 2.5 MG Tablet PO (06:36)
[2020-12-28] MEDS: Menthol/Lanolin/Calamine/Znox 113 GM Tube 1 APPLIC TOPICAL ×2 (06:37→18:11)
[2020-12-28] MEDS: Nystatin Powder 15gm Bottle 1 APPLIC TOPICAL ×2 (06:38→18:11)
[2020-12-28] MEDS: 0.9% Saline Lock 10 ML Syringe IV (06:39)
[2020-12-28 06:50] LABS: Bedside Glucose 94 mg/dL (70-110)
[2020-12-28] MEDS: Aspirin E.C. 81 MG Tablet PO (08:07)
[2020-12-28] MEDS: Carvedilol 12.5 MG Tablet PO ×2 (08:07→18:10)
[2020-12-28] MEDS: metFORMIN HCl 500 MG Tablet PO ×2 (08:07→18:10)
[2020-12-28] MEDS: Amiodarone 200 MG Tablet PO ×2 (08:07→18:10)
--- NOTE | 2020-12-28 09:43 | CASEMGMT ---
Addendum entered by Nicolette Weller 12/28/20 11:54: Insurance issued LCD 12/30, DC 12/31. Scheduled cot transport through [facility] for 10 am. Spoke with Allen to notify of DC and time. Updated [facility] and hospice. Plan: DC 12/31 to [facility] with [facility] Addendum entered by Nicolette Weller 12/28/20 10:15: PASRR completed. Original Note: Social Work Son's [facility] SW [facility]. Notified the other facilities. Left message with [facility]. Spoke with [facility] to switch services from Palliative to Hospice. Will schedule cot transport once DC plans are finalized. SHELDON Jama
[2020-12-28 10:00] VITALS: PULSE 88; RESP 18; O2SAT 90
[2020-12-28 13:48] VITALS: BP 121/65; PULSE 72; RESP 16; TEMP 36.3; O2SAT 94
--- NOTE | 2020-12-28 14:33 | DCINST_ITS ---
- Discharge Diagnoses Current Active Problems: Current Active and Chronic Problems (Last Reviewed 01/11/20 @ 10:32 by Falguni Kline) Urinary tract infection (Acute) Debility (Acute) Fever (Acute) Rectal pain (Acute) Fecal impaction of colon (Acute) Malaise (Acute) Atrial fibrillation with rapid ventricular response (Acute) NSTEMI (non-ST elevated myocardial infarction) (Acute) Endometrial cancer (Chronic) Bladder cancer (Chronic) Diabetes mellitus (Chronic) Hypertension (Chronic) Hyperlipidemia (Chronic) PAOD (peripheral arterial occlusive disease) (Chronic) You will use the following diet at home:: No restrictions, Regular Your food should be the consistency of: Regular Your liquids should be the consistency of: Regular/Thin Discharge Activity: Return to Normal Activity, May Shower, Use Walker Weight Bearing Status: Weight bearing as tolerated Call your doctor if you observe: Fever of 101 or Higher, Inability to urinate, Inability to have a bowel movement, Shortness of breath, Chest pain, Uncontrolled pain Allergies/Adverse Reactions: Allergies latex Allergy (Verified 12/02/20 11:46) Hives sulfur dioxide Allergy (Verified 12/02/20 11:46) Hives adhesive tape Adverse Reaction (Verified 12/02/20 11:46) Rash Medications to take at Discharge aspirin 81 mg tablet,delayed release 81 mg PO DAILY 07/29/19 atorvastatin 20 mg tablet 20 mg PO DAILY 07/29/19 lisinopril 2.5 mg tablet 2.5 mg PO DAILY 07/29/19 metformin 500 mg tablet 500 mg PO BID 07/29/19 Acetaminophen [Tylenol Arthritis] 1,300 mg PO TID PRN PRN 12/05/20 Amiodarone HCl [Cordarone] 200 mg PO BIDCM 12/10/20 Apixaban [Eliquis] 2.5 mg PO BID 12/10/20 Carvedilol [Coreg (Beta Blanca)] 12.5 mg PO BIDCM 12/10/20 Menthol/Lanolin/Calamine/Znox [Calmoseptine Ointment] 1 applic TOPICAL BID tube 12/28/20 Mirtazapine [Remeron] 7.5 mg PO QHS tab 12/28/20 Nystatin Powder [Mycostatin Powder] 1 applic TOPICAL BID bottle 12/28/20 Oxycodone [Oxyir] 5 mg PO Q4H PRN PRN 3 Days #18 tab 03/12/21 Oxycodone [Oxyir] 5 mg PO Q8H 3 Days #9 tab 12/28/20 Polyethylene Glycol 3350 [Miralax] 17 gm PO DAILY packet 12/28/20 Pregabalin [Lyrica] 50 mg PO BID cap 12/28/20 Senna/Docusate Sodium [Senokot-S] 2 tab PO BID tab 12/28/20 The following prescriptions were given: Oxycodone [Oxyir] 5 mg PO Q4H PRN PRN 3 Days #18 tab PRN Reason: Pain Score 6-10 Prescription Printed Oxycodone [Oxyir] 5 mg PO Q8H 3 Days #9 tab Prescription Printed Primary Care Physician: Tano Cornejo MD [Primary Care Provider] - Please follow up with your Primary Care Physician in: As needed. Test Results: Test results from this visit will be discussed in further detail at your follow- up appointment, if applicable. Please Follow Up With: Tano Cornejo MD When: As needed. Please Follow Up With: Aaron Souza MD When: N/A. Proposed Discharge Date: 12/31/20
--- NOTE | 2020-12-28 14:34 | DS.PCM_ITS ---
Discharge Date and Diagnosis - Problem List Patient Problems: Active and Suspected Problems (Last Reviewed 01/11/20 @ 10:32 by Falguni Kline) Urinary tract infection (Acute) Debility (Acute) Fever (Acute) Rectal pain (Acute) Fecal impaction of colon (Acute) Malaise (Acute) Atrial fibrillation with rapid ventricular response (Acute) NSTEMI (non-ST elevated myocardial infarction) (Acute) Date of Admission: 12/10/20 Date of Discharge: 12/31/20 - Primary Discharge Diagnosis Acute Problems: Active Problems (Last Reviewed 01/11/20 @ 10:32 by Falguni Kline) Urinary tract infection (Acute) Debility (Acute) Fever (Acute) Rectal pain (Acute) Fecal impaction of colon (Acute) Malaise (Acute) Atrial fibrillation with rapid ventricular response (Acute) NSTEMI (non-ST elevated myocardial infarction) (Acute) - Secondary Discharge Diagnosis Chronic Problems: Chronic Problems (Last Reviewed 01/11/20 @ 10:32 by Falguni Kline) Endometrial cancer, FIGO stage IIIA (Chronic) Endometrial cancer (Chronic) Bladder cancer (Chronic) Diabetes mellitus (Chronic) Hypertension (Chronic) Hyperlipidemia (Chronic) PAOD (peripheral arterial occlusive disease) (Chronic) Hospital Course and Treatment Imaging Results: 12/26/20 13:32 Diet: Regular - No Added Salt Food consistency:: Regular Liquid Consistency:: Regular/Thin Is pt able to select menu?: Yes Clinical Impression(s) from Imaging Studies KUB X-Ray 12/10/20 18:10 IMPRESSION: No evidence of acute intra-abdominal process. Electronically Signed: Lalo Lopez DO at 22:05 EST Tel [phone], Service support , Chest X-Ray 12/26/20 08:10 IMPRESSION: 1. No acute findings in the chest. 2. No significant interval change when compared to 12/05/2020 Electronically Signed: Kvng Yanez MD at 8:26 EST , Service support , Labs (Last 48 Hours) 12/27/20 12/27/20 12/28/20 05:35 06:21 06:13 Sodium 136 Potassium 4.9 Chloride 103 Carbon Dioxide 29.0 Anion Gap 4 L BUN 21 H Creatinine 0.87 Estim Creat Clear Calc 71.00 Est GFR (MDRD) Af Amer 80 Est GFR (MDRD) Non-Af 66 BUN/Creatinine Ratio 24.1 H Glucose 100 Calcium 7.9 L POC Glucose 99 67 L 12/28/20 06:46 Sodium Potassium Chloride Carbon Dioxide Anion Gap BUN Creatinine Estim Creat Clear Calc Est GFR (MDRD) Af Amer Est GFR (MDRD) Non-Af BUN/Creatinine Ratio Glucose Calcium POC Glucose 94 Operations: None Procedures: None Summary of Care Provided: The patient is a 80 year old Female with below past medical history hospitalized for atrial fibrillation with rapid ventricular response, complicated by rectal pain secondary to fecal impaction of colon, NSTEMI secondary to demand ischemia, endometrial cancer declining chemotherapy, admitted to TCU with debility, here for rehabilitation, strengthening, prior to discharge home with family. Resident declining. Discharge to [facility]. Patient Problems: Active and Suspected Problems (Last Reviewed 01/11/20 @ 10:32 by Falguni Kline) Urinary tract infection (Acute) Debility (Acute) Fever (Acute) Rectal pain (Acute) Fecal impaction of colon (Acute) Malaise (Acute) Atrial fibrillation with rapid ventricular response (Acute) NSTEMI (non-ST elevated myocardial infarction) (Acute) - Physical Exam Vitals/I&O's: Vital Signs Temp Pulse Resp BP Pulse Ox 97.4 F L 72 16 121/65 H 94 12/28/20 13:48 12/28/20 13:48 12/28/20 13:48 12/28/20 13:48 12/28/20 13:48 Oxygen Flow Rate (L/min) 2 Oxygen Delivery Method Room Air Weight: 87.203 kg Body Mass Index (BMI) 34.0 Intake and Output for Last 24 Hours 12/26/20 12/27/20 12/28/20 23:59 23:59 23:59 Intake Total 1660 / 1660 840 / 840 600 / 600 Balance 1660 / 1660 840 / 840 600 / 600 Laboratory Results 12/28/20 06:13: POC Glucose 67 L 12/28/20 06:46: POC Glucose 94 Current Medications Acetaminophen (Acetaminophen 325 Mg Tablet) 1,300 mg PO DAILY PRN PRN PRN Reason: Pain Score 1-3 Acetaminophen (Acetaminophen 325 Mg Tablet) 1,300 mg PO Q12 [facility] Last Admin: 12/28/20 06:35 Dose: 1,300 mg Documented by: Amiodarone HCl ([facility] 200 Mg Tablet) [facility] Last Admin: 12/28/20 08:07 Dose: 200 mg Documented by: Apixaban (Apixaban 2.5 Mg Tablet) 2.5 mg PO BID [facility] Last Admin: 12/28/20 06:36 Dose: 2.5 mg Documented by: Aspirin (Aspirin E.C. 81 Mg Tablet) [facility] Last Admin: 12/28/20 08:07 Dose: 81 mg Documented by: Atorvastatin Calcium (Atorvastatin Calcium 20 Mg Tablet) [facility] Last Admin: 12/27/20 22:54 Dose: 20 mg Documented by: Bisacodyl (Bisacodyl 5 Mg Tablet) 10 mg PO DAILY PRN PRN Reason: Constipation Last Admin: 12/23/20 16:30 Dose: 10 mg Documented by: Calamine/Phenol (Menthol/Lanolin/Calamine/Znox 113 Gm Tube) 1 applic TOPICAL BID [facility]; Protocol Last Admin: 12/28/20 06:37 Dose: 1 applicatio Documented by: Carvedilol (Carvedilol 12.5 Mg Tablet) [facility] Last Admin: 12/28/20 08:07 Dose: 12.5 mg Documented by: Hydrocortisone Acetate (Hydrocortisone 25 Mg Suppository) 25 mg RC BID PRN PRN PRN Reason: Hemorrhoids Last Admin: 12/14/20 14:40 Dose: 25 mg Documented by: Lisinopril (Lisinopril 2.5 Mg Tablet) 2.5 mg PO DAILY [facility] Last Admin: 12/28/20 06:36 Dose: 2.5 mg Documented by: Magnesium Hydroxide (Magnesium Hydroxide 30 Ml Udc) 30 ml PO DAILY PRN PRN Reason: Constipation Metformin HCl (Metformin Hcl 500 Mg Tablet) [facility] Last Admin: 12/28/20 08:07 Dose: 500 mg Documented by: Mirtazapine (Mirtazapine 15 Mg Tablet) 7.5 mg PO QHS [facility] Last Admin: 12/27/20 22:54 Dose: 7.5 mg Documented by: Nystatin (Nystatin Powder 15gm Bottle) 1 applic TOPICAL BID [facility]; Protocol Last Admin: 12/28/20 06:38 Dose: 1 applicatio Documented by: Ondansetron HCl (Ondansetron Odt 4 Mg Tablet) 4 mg PO Q8H PRN PRN PRN Reason: NAUSEA Last Admin: 12/23/20 21:36 Dose: 4 mg Documented by: Oxycodone HCl (Oxycodone 5 Mg Tablet) 5 mg PO Q4H PRN PRN PRN Reason: Pain Score 6-10 Last Admin: 12/18/20 08:36 Dose: 5 mg Documented by: Oxycodone HCl (Oxycodone 5 Mg Tablet) 5 mg PO Q8H [facility] Last Admin: 12/28/20 13:44 Dose: Not Given Documented by: Polyethylene Glycol (Polyethylene Glycol 3350 17 Gm Packet) 17 gm PO DAILY [facility] Last Admin: 12/28/20 06:38 Dose: Not Given Documented by: Pregabalin (Pregabalin 50 Mg Capsule) 50 mg PO BID [facility] Last Admin: 12/28/20 06:35 Dose: 50 mg Documented by: Senna/Docusate Sodium (Senna/Docusate Sodium 1 Tablet) 2 tablet PO BID [facility] Last Admin: 12/28/20 06:35 Dose: 2 tablet Documented by: Sodium Chloride (0.9% Saline Lock 10 Ml Syringe) 10 - 40 ml IV UD PRN PRN Reason: SALINE FLUSH Last Admin: 12/28/20 06:39 Dose: 10 ml Documented by: Tramadol HCl (Tramadol 50 Mg Tablet) 50 mg PO Q6H PRN PRN PRN Reason: Pain Score 4-5 Last Admin: 12/16/20 20:43 Dose: 50 mg Documented by: Discharge Diet: No Restrictions Discharge Activity: Return to Normal Activity, May Shower, Use Walker Weight Bearing Status: Weight bearing as tolerated Call your doctor if you observe: Fever of 101 or Higher, Inability to urinate, Inability to have a bowel movement, Shortness of breath, Chest pain, Uncontrolled pain Home Medications: Medications to take at Discharge aspirin 81 mg tablet,delayed release 81 mg PO DAILY 07/29/19 atorvastatin 20 mg tablet 20 mg PO DAILY 07/29/19 lisinopril 2.5 mg tablet 2.5 mg PO DAILY 07/29/19 metformin 500 mg tablet 500 mg PO BID 07/29/19 Acetaminophen [Tylenol Arthritis] 1,300 mg PO TID PRN PRN 12/05/20 Amiodarone HCl [Cordarone] 200 mg PO BIDCM 12/10/20 Apixaban [Eliquis] 2.5 mg PO BID 12/10/20 Carvedilol [Coreg (Beta Blanca)] 12.5 mg PO BIDCM 12/10/20 Menthol/Lanolin/Calamine/Znox [Calmoseptine Ointment] 1 applic TOPICAL BID tube 12/28/20 Mirtazapine [Remeron] 7.5 mg PO QHS tab 12/28/20 Nystatin Powder [Mycostatin Powder] 1 applic TOPICAL BID bottle 12/28/20 Oxycodone [Oxyir] 5 mg PO Q4H PRN PRN 3 Days #18 tab 12/28/20 Oxycodone [Oxyir] 5 mg PO Q8H 3 Days #9 tab 12/28/20 Polyethylene Glycol 3350 [Miralax] 17 gm PO DAILY packet 12/28/20 Pregabalin [Lyrica] 50 mg PO BID cap 12/28/20 Senna/Docusate Sodium [Senokot-S] 2 tab PO BID tab 12/28/20 Following Prescriptions Were Given to Patient: Oxycodone [Oxyir] 5 mg PO Q4H PRN PRN 3 Days #18 tab PRN Reason: Pain Score 6-10 Prescription Printed Oxycodone [Oxyir] 5 mg PO Q8H 3 Days #9 tab Prescription Printed Primary Care Physician: Tano Cornejo MD [Primary Care Provider] - Please follow up with your Primary Care Physician in: As needed. Please Follow Up With: Tano Cornejo MD When: As needed. Please Follow Up With: Aaron Souza MD When: N/A. Disposition: Asstd Living/Non-Skill [place] Minutes spent on discharge:: 35 Patient Condition:: Poor Medical Necessity - Tobacco Use Smoking Status: Former smoker Tobacco Use: Cigarettes Meaningful Use Info Meaningful Use Diagnoses (Choose all that apply): None applicable
--- NOTE | 2020-12-28 14:36 | PCM.TXEXTCAR ---
- Diet 12/26/20 13:32 Diet: Regular - No Added Salt Food consistency:: Regular Liquid Consistency:: Regular/Thin Is pt able to select menu?: Yes - Routine Orders/Code Status Suppository Type: Dulcolax 10mg Suppository Frequency: Daily PRN Code Status: DNRCC - Therapies Weight Bearing: Weight bearing as tolerated Extremity Affected:: Bilateral Lower - Problem/Diagnosis (1) Debility Status: Acute (2) Fever Status: Acute (3) Rectal pain Status: Acute (4) Fecal impaction of colon Status: Acute (5) Malaise Status: Acute (6) Atrial fibrillation with rapid ventricular response Status: Acute (7) NSTEMI (non-ST elevated myocardial infarction) Status: Acute (8) Endometrial cancer Status: Chronic (9) Bladder cancer Status: Chronic (10) Diabetes mellitus Status: Chronic (11) Hypertension Status: Chronic (12) Hyperlipidemia Status: Chronic (13) PAOD (peripheral arterial occlusive disease) Status: Chronic (14) Urinary tract infection Status: Acute - Allergies/Procedures Done in Hospital Allergies/Adverse Reactions: Allergies latex Allergy (Verified 12/02/20 11:46) Hives sulfur dioxide Allergy (Verified 12/02/20 11:46) Hives adhesive tape Adverse Reaction (Verified 12/02/20 11:46) Rash - Type of Care/Length of Stay Estimated LOS: More Than 30 Days Type of Care Needed: Intermediate Rehab Potential: None Prognosis: Poor - Additional Orders/Day of Discharge Day of Discharge: 12/31/20 - Dietary and Speech Recommendations Dietitian Recommendations/Changes: Will change diet to liberalized diet of Regular No Added Salt d/t continued decreased appetite/po intake and issues w/ edema. Resident refuses ONS; encourage improved intake at meals. - Follow Up Care Primary Care Physician: Tano Cornejo MD [Primary Care Provider] - Please follow up with your Primary Care Physician in: As needed. Please Follow Up With: Tano Cornejo MD When: As needed. Please Follow Up With: Aaron Souza MD When: N/A.
[2020-12-28] MEDS: Atorvastatin Calcium 20 MG Tablet PO (21:19)
[2020-12-28] MEDS: Mirtazapine 15 MG Tablet 7.5 MG PO (21:20)
[2020-12-29 04:00] VITALS: BP 135/91; PULSE 91; RESP 16; TEMP 35.9; O2SAT 96
[2020-12-29] MEDS: APIXABAN 2.5 MG TABLET PO ×2 (06:03→17:02)
[2020-12-29] MEDS: Menthol/Lanolin/Calamine/Znox 113 GM Tube 1 APPLIC TOPICAL ×2 (06:03→16:55)
[2020-12-29] MEDS: Pregabalin 50 MG Capsule PO ×2 (06:05→17:00)
[2020-12-29] MEDS: Nystatin Powder 15gm Bottle 1 APPLIC TOPICAL ×2 (06:06→16:55)
[2020-12-29] MEDS: Polyethylene Glycol 3350 17 GM PACKET PO (06:06)
[2020-12-29] MEDS: oxyCODONE 5 MG Tablet PO ×3 (06:06→21:35)
[2020-12-29] MEDS: Senna/Docusate Sodium 1 Tablet 2 TABLET PO ×2 (06:07→16:58)
[2020-12-29] MEDS: Acetaminophen 325 MG Tablet 1300 MG PO ×2 (06:07→17:00)
[2020-12-29] MEDS: Lisinopril 2.5 MG Tablet PO (06:07)
[2020-12-29 06:26] LABS: Bedside Glucose 104 mg/dL (70-110)
[2020-12-29] MEDS: metFORMIN HCl 500 MG Tablet PO ×2 (08:36→17:00)
[2020-12-29] MEDS: Aspirin E.C. 81 MG Tablet PO (08:36)
[2020-12-29] MEDS: Amiodarone 200 MG Tablet PO ×2 (08:37→17:01)
[2020-12-29] MEDS: 0.9% Saline Lock 10 ML Syringe IV (12:42)
[2020-12-29 13:36] VITALS: BP 123/56; PULSE 104; RESP 14; TEMP 36.2; O2SAT 93
[2020-12-29] MEDS: Carvedilol 12.5 MG Tablet PO (17:02)
[2020-12-29] MEDS: Mirtazapine 15 MG Tablet 7.5 MG PO (21:36)
[2020-12-29] MEDS: Atorvastatin Calcium 20 MG Tablet PO (21:36)
[2020-12-30 06:25] LABS: Bedside Glucose 79 mg/dL (70-110)
[2020-12-30] MEDS: Pregabalin 50 MG Capsule PO ×2 (06:53→17:26)
[2020-12-30] MEDS: oxyCODONE 5 MG Tablet PO ×3 (06:53→22:16)
[2020-12-30] MEDS: APIXABAN 2.5 MG TABLET PO ×2 (06:54→17:26)
[2020-12-30] MEDS: Menthol/Lanolin/Calamine/Znox 113 GM Tube 1 APPLIC TOPICAL ×2 (06:54→17:26)
[2020-12-30] MEDS: Lisinopril 2.5 MG Tablet PO (06:55)
[2020-12-30] MEDS: Nystatin Powder 15gm Bottle 1 APPLIC TOPICAL ×2 (06:55→17:26)
[2020-12-30] MEDS: Acetaminophen 325 MG Tablet 1300 MG PO ×2 (06:55→17:26)
[2020-12-30 06:59] VITALS: BP 125/73; PULSE 108; RESP 20; TEMP 37.2; O2SAT 94
[2020-12-30] MEDS: Amiodarone 200 MG Tablet PO ×2 (08:30→17:27)
[2020-12-30] MEDS: Carvedilol 12.5 MG Tablet PO ×2 (08:30→17:26)
[2020-12-30] MEDS: metFORMIN HCl 500 MG Tablet PO ×2 (08:30→17:26)
[2020-12-30] MEDS: Aspirin E.C. 81 MG Tablet PO (08:30)
[2020-12-30] MEDS: 0.9% Saline Lock 10 ML Syringe IV (12:24)
[2020-12-30 13:37] VITALS: BP 105/74; PULSE 58; RESP 16; TEMP 36.1; O2SAT 90
[2020-12-30 17:24] VITALS: PULSE 78
[2020-12-30] MEDS: Mirtazapine 15 MG Tablet 7.5 MG PO (22:16)
[2020-12-30] MEDS: Atorvastatin Calcium 20 MG Tablet PO (22:17)
[2020-12-31] MEDS: Pregabalin 50 MG Capsule PO (05:39)
[2020-12-31] MEDS: Acetaminophen 325 MG Tablet 1300 MG PO (05:39)
[2020-12-31] MEDS: oxyCODONE 5 MG Tablet PO (05:39)
[2020-12-31] MEDS: APIXABAN 2.5 MG TABLET PO (05:39)
[2020-12-31] MEDS: Lisinopril 2.5 MG Tablet PO (05:39)
[2020-12-31] MEDS: Nystatin Powder 15gm Bottle 1 APPLIC TOPICAL (05:40)
[2020-12-31] MEDS: Senna/Docusate Sodium 1 Tablet 2 TABLET PO (05:41)
[2020-12-31] MEDS: Polyethylene Glycol 3350 17 GM PACKET PO (05:41)
[2020-12-31] MEDS: Menthol/Lanolin/Calamine/Znox 113 GM Tube 1 APPLIC TOPICAL (05:42)
[2020-12-31 05:47] VITALS: BP 125/59; PULSE 102; RESP 18; TEMP 37.2; O2SAT 91
[2020-12-31 06:25] LABS: Bedside Glucose 125 mg/dL (70-110)
[2020-12-31] MEDS: Amiodarone 200 MG Tablet PO (08:10)
[2020-12-31] MEDS: Aspirin E.C. 81 MG Tablet PO (08:10)
[2020-12-31] MEDS: metFORMIN HCl 500 MG Tablet PO (08:10)
[2020-12-31] MEDS: Carvedilol 12.5 MG Tablet PO (08:10)
[2020-12-31 10:00] VITALS: PULSE 92; RESP 18; O2SAT 96
[2020-12-31 10:18] VITALS: BP 115/74; PULSE 92; RESP 18; TEMP 36.8; O2SAT 96
== END 2020-12-31 10:20 | disposition hospice, inpatient (51) | DRG 281 ==
LOC: TCU 14:04
PROVIDERS: Admitting Provider Family Medicine Geriatric Medicine; PCP Family Medicine; Visit Provider Family Medicine Geriatric Medicine
DX: I48.91 Unspecified atrial fibrillation (principal); I21.A1 Myocardial infarction type 2; I50.22 Chronic systolic (congestive) heart failure; I25.10 Atherosclerotic heart disease of native coronary artery without angina pectoris; E78.5 Hyperlipidemia, unspecified; I11.0 Hypertensive heart disease with heart failure; E11.9 Type 2 diabetes mellitus without complications; B35.4 Tinea corporis; E11.51 Type 2 diabetes mellitus with diabetic peripheral angiopathy without gangrene; C54.1 Malignant neoplasm of endometrium; F32.9 Major depressive disorder, single episode, unspecified; Z85.51 Personal history of malignant neoplasm of bladder; Z87.891 Personal history of nicotine dependence; Z87.440 Personal history of urinary (tract) infections; Z66 Do not resuscitate; R53.1 Weakness
CPT/HCPCS: 36415; 71046; 74018; 80048; 81001; 82962; 85025; 87086; 87635; 92610; 97110; 97162; 97166; 97530; 97535; 97802; J7030; U0005; A4216; U0002; U0003

== ENCOUNTER 2020-12-13 15:11 | Outpatient (RCR) | payer MEDICARE, SELFPAY ==
[2019-08-18 10:02] VITALS: BMI 36.6
[2020-12-10 14:06] VITALS: BMI 34.0
== END 2020-12-13 23:59 ==
LOC: IMMUN 15:11
PROVIDERS: PCP Family Medicine; Referring Provider Family Medicine; Visit Provider Family Medicine
DX: Z23 Encounter for immunization (principal)
CPT/HCPCS: 0012A

== ENCOUNTER → 2020-12-17 08:51 | Outpatient (CLI) | payer MEDICARE, SELFPAY ==
[2019-08-18 10:02] VITALS: BMI 36.6
[2020-12-10 14:06] VITALS: BMI 34.0
--- NOTE | 2020-12-17 09:03 | CT_ITS ---
STUDY: CT ABDOMEN AND PELVIS WITH CONTRAST REASON FOR EXAM: Female, 80 years old. MASSES IN RECTUM RADIATION DOSAGE (If Supplied By Facility): CTDIvol = ( 24.15 ) mGy, DLP = ( 1182.28 ) mGycm TECHNIQUE: Transaxial images were obtained from the dome of the diaphragm to the symphysis pubis with oral contrast. Oral and amp;amp; IV Gastrografin and amp;amp; 100mL Isovue-300 was administered. Sagittal and coronal images were reconstructed. Individualized dose optimization techniques were used for this CT. COMPARISON: Comparison is made with prior study dated 01/05/2020. FINDINGS: Small bilateral pleural effusions with bibasilar atelectasis and/or infiltrates worse on the left side. Coronary artery calcification. Perihepatic fluid. Heterogeneous appearance of the liver as compared to prior study. Normal gallbladder and extrahepatic biliary system. Perisplenic fluid. Normal pancreas. Normal bilateral adrenal glands. Stable right renal cyst. Normal left kidney. Normal visualized stomach. Normal small intestine. There are multiple colonic diverticula consistent with diverticulosis. The appendix is visualized and appears normal. There is diffuse atherosclerotic calcification of the abdominal aorta, without a demonstrated aneurysm. Normal inferior vena cava. Inhomogeneous enlargement of the left retroperitoneal lymphadenopathy at the level of the left renal hilus suggestive of a metastatic lymph nodes. Normal urinary bladder. There is absence of the uterus consistent with a prior hysterectomy. Small amount of fluid is seen in the pelvis. Ventral hernia. Increased markings in the subcutaneous fat in the anterior and anterolateral aspects of the abdominal wall suggestive of a edema. There are diffuse degenerative changes of the visualized lumbar spine. Prior laminectomy and fusion at the L4-L5 level. CT/Abdomen/Pelvis WITH Contrast IMPRESSION: Small bilateral pleural effusions with bibasilar atelectasis and/or infiltrates worse on the left side. Heterogeneous appearance of the liver as compared to prior study. Small amount of ascites. Increased markings in the subcutaneous tissues overlying the anterior and lateral aspect of the abdominal wall suggestive of a edema. Electronically Signed: Phoenix Griffin MD at 13:13 EST , Service support ,
== END ==
PROVIDERS: PCP Family Medicine; Referring Provider Family Medicine Geriatric Medicine; Visit Provider Family Medicine Geriatric Medicine
DX: K62.89 Other specified diseases of anus and rectum (principal)
CPT/HCPCS: 74177; Q9967